=== PATIENT | female | born 1960 | race Caucasian/White ===

== ENCOUNTER 2017-04-07 12:21 | Inpatient (IN) ==
[2017-04-07] MEDS ORDERED: MORPHINE SULFATE 4mg INJECTION IVP ONE (12:34)
[2017-04-07] MEDS ORDERED: ONDANSETRON 4 MG/2 ML INJECTION IVP ONE (12:34)
--- OUTSIDE RECORDS SUMMARY | 2017-04-07 12:53 | External Medical Summary ---
:1960 Author Organization eClinicalWorks Care Team Providers Name Role Phone Krishna Jose Provider Role Unavailable Allergies No Known Allergies Problems Problem Type Condition Code Onset Dates Condition Status Problem Major depressive disorder, recurrent, F33.1 Active moderate Problem Panic disorder [episodic paroxysmal F41.0 Active anxiety] without agoraphobia Problem Attention-deficit hyperactivity F90.9 Active disorder, unspecified type Medications Medication Code System Code Instructions Start Date End Date Status Dosage Adderall XR [facility] 99393-213 30 MG Orally in November 05, October 31, 1 capsule 0-30 the morning and 2014 2016 at noon daily for ADHD Results No Known Results Summary Purpose eClinicalWorks Submission
--- OUTSIDE RECORDS SUMMARY | 2017-04-07 12:53 | External Medical Summary ---
:1960 Author Organization eClinicalWorks Care Team Providers Name Role Phone Radha Payne Provider Role Unavailable Allergies No Known Allergies Problems Problem Type Condition Code Onset Dates Condition Status Problem Daytime sleepiness R40.0 Active Problem Attention-deficit hyperactivity F90.9 Active disorder, unspecified type Problem Migraine without aura and without G43.009 Active status migrainosus, not intractable Problem Major depressive disorder, F33.1 Active recurrent, moderate Problem Panic disorder [episodic paroxysmal F41.0 Active anxiety] without agoraphobia Medications No Known Medications Results No Known Results Summary Purpose eClinicalWorks Submission
--- OUTSIDE RECORDS SUMMARY | 2017-04-07 12:53 | External Medical Summary ---
:1960 Author Organization e[employer]Works Care Team Providers Name Role Phone Val Reyes Provider Role Unavailable Allergies No Known Allergies Problems Problem Type Condition Code Onset Dates Condition Status Problem Major depressive disorder, F33.1 Active recurrent, moderate Problem Panic disorder [episodic paroxysmal F41.0 Active anxiety] without agoraphobia Problem Attention or concentration deficit 799.51 Active Medications No Known Medications Results No Known Results Summary Purpose eClinicalCompute Submission
--- OUTSIDE RECORDS SUMMARY | 2017-04-07 12:53 | External Medical Summary ---
:1960 Author Organization eClinicalWorks Care Team Providers Name Role Phone Marline Trevizo Provider Role Unavailable Allergies, Adverse Reactions, Alerts Substance Reaction Event Type Topamax "blood infections" sounds like down Drug Allergy Lortab N/V Drug Allergy tomatoes Info Not Available Non Drug Allergy seasonal allergies Info Not Available Non Drug Allergy potatoes Info Not Available Non Drug Allergy Problems Problem Type Condition Code Onset Dates Condition Status Problem Panic disorder without agoraphobia 300.01 Active Problem Attention or concentration deficit 799.51 Active Problem Major depressive disorder, recurrent 296.32 Active episode, moderate Assessment Panic disorder without agoraphobia 300.01 Active Assessment Major depressive disorder, recurrent 296.32 Active episode, moderate Assessment Attention deficit disorder of 314.01 Active childhood with hyperactivity Medications Medication Code Code Instructions Start End Date Status Dosage System Date Propranolol HCl [facility] 70433-08 20 MG Orally 1 tablet 73-00 Twice a day as needed Adderall XR [facility] 40924-40 30 MG Orally November 05, 2 capsules 50-30 Once a day 2014 in the morning Oxybutynin [facility] 56233-44 10 MG Orally not defined Chloride ER 07-[address] [facility] 63065-09 2 MG Orally 1 tablet 58-01 Daily for Three Weeks, 1 Week off Pristiq [facility] 92585-07 100 MG Orally 1 tablet 22-01 Once a day Procedures Procedure Coding System Code Date OFFICE VISIT, EST-MOD. COMPLEXITY (25 MIN) CPT-4 72289 November 05, 2014 Vital Signs Date/Time: November 05, 2014 Height 63 in Weight 209.8 lbs Temperature 98.5 F Blood Pressure Diastolic 68 mm Hg Blood Pressure Systolic 120 mm Hg Cardiac Monitoring Heart Rate 68 /min BMI 37.16 Index Respiratory Rate 20 /min Results No Known Results Summary Purpose eClinicalWorks Submission
--- OUTSIDE RECORDS SUMMARY | 2017-04-07 12:53 | External Medical Summary ---
:1960 Author Organization eClinicalWorks Care Team Providers Name Role Phone Marline Trevizo Provider Role Unavailable Allergies No Known Allergies Problems Problem Type Condition Code Onset Dates Condition Status Problem Major depressive disorder, F33.1 Active recurrent, moderate Problem Panic disorder [episodic paroxysmal F41.0 Active anxiety] without agoraphobia Problem Attention or concentration deficit 799.51 Active Medications Medication Code System Code Instructions Start Date End Date Status Dosage Adderall XR [facility] 44828-329 30 MG Orally in November 05, 1 capsule 0-30 the morning and 2014 at noon daily for ADHD Results No Known Results Summary Purpose eClinicalWorks Submission
--- OUTSIDE RECORDS SUMMARY | 2017-04-07 12:53 | External Medical Summary ---
[...] Medications Medication Code System Code Instructions Start End Date Status Dosage Date Trazodone HCl [facility] 35629-004 150 MG Orally at Mar 08, 1/2 to 09-01 bedtime 2014 tablet at bedtime Results No Known Results Summary Purpose eClinicalWorks Submission
--- OUTSIDE RECORDS SUMMARY | 2017-04-07 12:53 | External Medical Summary ---
:1960 Author Organization eClinicalWorks Care Team Providers Name Role Phone Maria Luisa Cox Provider Role Unavailable Allergies, Adverse Reactions, Alerts Substance Reaction Event Type Topamax "blood infections" sounds like down Drug Allergy Lortab N/V Drug Allergy dogs and cats Info Not Available Non Drug Allergy tomatoes Info Not Available Non Drug Allergy seasonal allergies Info Not Available Non Drug Allergy potatoes Info Not Available Non Drug Allergy Problems Problem Type Condition Code Onset Dates Condition Status Assessment Chest congestion R09.89 Active Problem Daytime sleepiness R40.0 Active Problem Attention-deficit hyperactivity F90.9 Active disorder, unspecified type Problem Migraine without aura and without G43.009 Active status migrainosus, not intractable Assessment Dysuria R30.0 Active Assessment Ear pain, right H92.01 Active Problem Major depressive disorder, F33.1 Active recurrent, moderate Problem Panic disorder [episodic paroxysmal F41.0 Active anxiety] without agoraphobia Medications Medication Code Code Instructions Start End Status Dosage System Date Date Ofloxacin [facility] [address]-64 0.3 % Otic Once May 20, May 25, 10 drops a day 2015 2015 into affected ear Vitamin C [facility] [address]-03 not defined Keflex [facility] [address]-05 500 MG Orally May 11, May 21, 1 capsule Twice a day 2015 2015 Trazodone HCl [facility] 35621965344 150 Orally take one-half to one tablet every night at bedtime as needed Vit E-Vit [facility] 36447-42436 not defined C-Beta Orally Carotene Rizatriptan [facility] [address]-25 5 MG Orally Oct 25, 1 tablet as Benzoate once a day at 2016 needed one start of time migraine, may repeat once in 2 hours Omeprazole [facility] [address]-35 20 MG Orally December 28, 1 capsule Once a day 2015 Propranolol [facility] [address]-08 40 MG Orally Oct 25, 1 tablet HCl Twice a day 2015 Pristiq [facility] [address]-98 100 MG Orally May 05, 1 tablet Once a day 2014 ProAir HFA [facility] [address]-92 108 (90 Base) May 20, 2 puffs as MCG/ACT 2015 needed Inhalation every 4 hrs Amoxicillin-Po [facility] [address]-77 875-125 MG May 20, May 27, 1 tablet t Clavulanate Orally Twice a 2015 2015 day Vitamin D-3 [facility] [address]-04 35512 Orally not defined daily Iron [facility] [address]-20 325 (65 Fe) MG December 28, 1 tablet Orally Once a 2015 day Procedures Procedure Coding System Code Date OFFICE VISIT, EST-LOW COMPLEXITY (15 MIN.) CPT-4 82343 May 20, 2016 Vital Signs Date/Time: May 20, 2016 Temperature 97.7 F Height 63 in Weight 203 lbs Blood Pressure Diastolic 70 mm Hg Blood Pressure Systolic 106 mm Hg Cardiac Monitoring Heart Rate 108 /min BMI 35.96 Index Oximetry 99 % Respiratory Rate 16 /min Results No Known Results Summary Purpose eClinicalWorks Submission
[2017-04-07] MEDS ORDERED: HYDROMORPHONE 2 MG/ML INJECTION IVP ONE (13:11)
[2017-04-07] MEDS ORDERED: SALINE FLUSH 10ml SYRINGE IVF PRN (13:12)
--- NOTE | 2017-04-07 13:45 | Emergency Department Report ---
Lower Extremity Injury HPI - General Chief Complaint: Extremity Injury, Lower <NovemberCruz - 04/09/17 07:32> Stated Complaint: right ankle pain <NovemberCruz - 04/09/17 07:32> Time Seen by Provider: 04/07/17 12:33 <NovemberCruz - 04/09/17 07:32> Source: patient <Camila Rascon Jose - 04/07/17 13:45> Mode of arrival: EMS <Yun Rasconporsha Garcia - 04/08/17 16:52> - History of Present Illness HPI Narrative: 57 YO F brought to ED via EMS at fall in the bathroom in her home. Patient says she was sitting on the toilet. When she went to get up she noticed that her right foot was a sleep. She stood up and twisted her ankle. Patient was given ketamine by EMS. Patient is tearful and difficult to obtain information due to pain. Denies LOC, neck/back pain or other injuries. <Camila Rascon - 04/08/17 17:17> MD complaint: ankle injury <Camila Rascon - 04/08/17 16:52> Onset (ago): hour(s) (1) <Camila Rascon - 04/08/17 16:52> Type of Injury: eversion <Camila Rascon - 04/08/17 16:52> Severity scale (1-10): >10 <Camila Rascon - 04/08/17 16:52> Associated symptoms: swelling, unable to bear weight <Camila Rascon - 04/08 16:52> - Related Data Home Medications Medication Instructions Recorded Confirmed Cholecalciferol (Vitamin D3) 10,000 unit PO DAILY #0 09/27/15 04/07/17 [Vitamin D3] Vitamin B Complex 1 tab PO DAILY #0 09/27/15 04/07/17 Propranolol HCl 40 mg PO BIDBL #0 07/30/16 04/07/17 Albuterol Sulfate [Proair Hfa] 1 puff INH Q4H PRN 04/02/17 04/07/17 Amphetamine/Dextroamphetamine 10 mg PO NOON 04/02/17 04/07/17 [Adderall] BuPROPion XL [Wellbutrin Xl] 150 mg PO DAILY 04/02/17 04/07/17 Cetirizine [Zyrtec] 10 mg PO DAILY 04/02/17 04/07/17 Dextroamphetamine/Amphetamine 30 mg PO QAM 04/02/17 04/07/17 [Dextroamp-Amphet ER 30 mg Cap] Ferrous Sulfate [Iron] 325 mg PO DAILY 04/02/17 04/07/17 Fluticasone Nasal [place] [Flonase] 1 spray EA NOSTRIL DAILY PRN 04/02/17 04/07/17 Ibuprofen [Advil] 200 mg PO Q4H PRN 04/02/17 04/07/17 Multivitamin/Iron/Folic Acid 1 tab PO DAILY 04/02/17 04/07/17 [Centrum Women Tablet] OXcarbazepine [Trileptal] 150 mg PO BIDBL 04/02/17 04/07/17 Rizatriptan [Maxalt 5 mg] 5 mg PO DAILY PRN 04/02/17 04/07/17 Sertraline [Zoloft] 200 mg PO DAILY 04/02/17 04/07/17 Trazodone [Desyrel] 200 mg PO HS 04/02/17 04/07/17 Vitamin E 1 tab PO DAILY 04/02/17 04/07/17 Previous Rx's Medication Instructions Recorded Acetaminophen [Tylenol] 500 - 1,000 mg PO Q8H PRN #100 tab 04/08/17 Aspirin *EC* [Ecotrin] 81 mg PO BID #84 tab 04/08/17 Tramadol [Ultram] 50 - 100 mg PO Q6H PRN #60 tab 04/08/17 <NovemberCruz - 04/09/17 07:32> Allergies Allergy/AdvReac Type Severity Reaction Status Date / Time codeine Allergy Unknown Verified 04/07/17 12:24 hydrocodone Allergy Unknown Nausea Verified 04/07/17 13:29 Potatoes Allergy Unknown Verified 04/07/17 13:29 tomato Allergy Unknown Verified 04/07/17 12:24 topiramate Allergy Unknown Verified 04/07/17 12:24 <NovemberCruz - 04/09/17 07:32> Review of Systems All systems: reviewed and negative except as stated <Camila Rascon A - 16:52> Musculoskeletal: Reports: as per HPI, joint swelling (and pain) <Camila Rascon 04/08/17 16:52> PFSH Patient Stated Medical History Other HEENT Yes: wears glasses Coronary Artery Disease No Hypertension No Asthma No Sleep Apnea No Diabetes Mellitus Type 2 No Gastroesophageal Reflux No Disease Other Musculoskeletal Yes: anxiety Anesthesia Reactions Yes: does not want Ketamine due to previous bad experience Post Menopausal Yes <Cruz Weiner M - 04/09/17 07:32> Family History: Non contributory <Camila Rascon 04/08/17 16:52> - Social History Smoking status: Former smoker <Camila Rascon 04/07/17 13:45> Physical Exam - Limitations Limitations: no limitations <Camila Rascon 04/08/17 16:52> - General General appearance: alert, in distress <Camila Rascon 04/08/17 16:52> - Normal Exams: Head:: Normocephalic without trauma <Camila Rascon 04/08/17 16:52> Eyes:: No scleral icterus, irritation <Camila Rascon 04/08/17 16:52> ENMT:: No facial trauma, nasal exudates <Camila Rascon 04/08/17 16:52> Dental: loose <Camila Rascon 04/08/17 17:17> Chest/Respirations:: Clear all wagner, with good airflow, and symmetry bilaterally <Camila Rascon 04/08/17 16:52> Cardiovascular:: Regular rate and rhythm <Camila Rascon 04/08/17 17:17> Neurological:: Patient is alert, exams w/o gross deficits, to observation < Camila Rascon 04/08/17 16:52> - Neck Neck exam: Present: trachea midline <Camila Rascon 04/08/17 16:52> - Expanded Neck Exam Neck exam focused ED: Absent: midline tenderness, tenderness (other) <Camila Rascon 04/08/17 17:17> - Expanded Lower Extremity Exam Knee exam: Present: normal inspection (right) <Camila Rascon 04/08/17 17: 17> Ankle exam: Present: swelling (right), ecchymosis (right), deformity (right), dislocation (right) <Camila Rascon 04/08/17 17:17> Neurovascular/Tendon exam: Present: normal capillary refill (right toes), normal fine/light touch. Absent: pulse deficit, sensory deficit, extremity cold to touch <Camila Rascon Joes 04/08/17 17:17> Course Course Narrative: Pt histrionic and uncooperative with any attempts at pain control or evaluation. Suboptimal plain films finally obtained at 90min; Ortho contacted - will reduce with conscious sedation in ER. Discussed with pt, who initially refused to make a decision. After making pts 3 options crystal clear, pt decided to have ankle reduced and splinted in ER. < 04/07/17 14:16> - Consultations Consultation #1: Dr. Rey: Will come to ER for reduction under conscious sedation. <eb 04/07/17 14:16> Time: 14:14 <[facility] 04/07/17 14:16> Vital Signs Temperature 98.8 F 04/07/17 12:24 Pulse Rate 90 04/07/17 12:24 Respiratory Rate 19 04/07/17 12:24 Blood Pressure 143/88 H 04/07/17 12:24 Pulse Oximetry 95 04/07/17 12:24 Temperature 96.8 F 04/09/17 05:12 Pulse Rate 68 04/09/17 05:12 Respiratory Rate 16 04/09/17 05:12 Blood Pressure 125/69 04/09/17 05:12 Pulse Oximetry 98 04/09/17 05:12 <eb 04/09/17 07:32> Procedures - Orthopedic Joint Reduction Joint #1 Time Out Performed: Yes <04/07/17 14:50> Side: right <04/07/17 14:50> Joint Reduction Location: ankle <04/07/17 14:50> Analgesia: procedural sedation <04/07/17 14:50> Technique used: direct manipulation <eb 04/07/17 14:50> Post-reduction neuro exam: intact <eb 04/07/17 14:50> Post-reduction vascular: intact <04/07/17 14:50> Post Reduction X-Ray Obtained: Yes <November,[facility] 04/07/17 14:50> Post Reduction X-Ray Results: reduced <November,[facility] 04/07/17 14:50> Splint Applied: Yes <November,[facility] 04/07/17 14:50> Patient Tolerated Procedure: well <November,[facility] 04/07/17 14:50> Additional Comments: Reduction performed by Orthopedist. <November,[facility] 04/07/17 14:50> - Procedural Sedation Indication: fracture/dislocation reduction <November,[facility] 04/07/17 14:16> ASA Class: III <[facility] 04/07/17 14:16> Time of Last PO Intake: 00:00 <November,[facility] 04/07/17 14:16> Preparation: president and chief operating officer applied, pulse oximeter, capnometry used, supplemental O2 applied, reversal agents at bedside, suction/airway equipment at bedside, IV secured <November,[facility] 04/07/17 14:16> Fentanyl: IV <November,[facility] 04/07/17 14:16> Fentanyl dose (mcg): 99 <November,[facility] 04/07/17 14:16> IV Propofol dose (mg): 100 <November,[facility] 04/07/17 14:16> Patient Tolerated Procedure: well <November,[facility] 04/07/17 14:50> Complications: hypoventilation <November,[facility] 04/07/17 14:50> Interventions: oxygen applied, airway repositioned, assist by BVM, non-invasive ventilation <November,[facility] 04/07/17 14:50> Extremity Injury, Lower - MDM Narrative Medical decision making narrative: Patient initially given morphine IV due to report codeine allergy. Patient anxious and tearful. Refusing x-ray of right ankle Patient given 1mg of Ativan. Patient was them given 1mg of Dilaudid after it was established she did not have a type 1 codeine allergy. Patient argumentative and unsure if she wanted Dilaudid initially. Patient care turned over to Dr. Weiner. <Camila Rascon - 04/08/17 17:17> Pt with ankle dislocation and fibular fx. Pt sedated and reduced as documented. Pt tolerated procedure well. Orthopedic surgeon will admit for obs and possible surgery tomorrow. <November,[facility] - 04/07/17 15:11> - Differential Diagnosis Likely: ankle sprain and strain, ankle fracture (Ankle dislocation) <November, [facility] - 04/07/17 15:11> - Medical Records Attestation: I reviewed the patient's medical records. <November,[facility] - 15:11> - Lab Data Result diagrams: 04/08/17 04:41 04/08/17 04:41 <November,[facility] - 04/09/17 07:32> Lab Results 04/08/17 04/08/17 Range/Units 04:41 04:41 WBC 10.3 (4.5-11.0) T/MM3 RBC 4.42 (4.00-5.20) M/MM3 Hgb 12.5 (12-16) GM/DL Hct 38.7 (36-46) % MCV 87.6 (80-100) UM3 MCH 28.3 (26-34) UUG MCHC 32.3 (31-37) GM/DL RDW Std Deviation 40.7 (36.9-50.2) FL Plt Count 290 (130-400) T/MM3 MPV 9.0 L (9.4-12.4) UM3 Immature Gran % (Auto) 0.3 (0.0-0.5) % Neut % (Auto) 59.6 (33-66) % Lymph % (Auto) 25.7 (23-45) % [place] % (Auto) 11.3 H (0-9.0) % Eos % (Auto) 2.9 (0-4) % Baso % (Auto) 0.2 (0-2) % Neut # (Auto) 6.1 (1.8-7.7) T/MM3 Lymph # (Auto) 2.6 (1-4.8) T/MM3 [place] # (Auto) 1.2 H (0-0.8) T/MM3 Eos # (Auto) 0.3 (0-0.5) T/MM3 Baso # (Auto) 0.0 (0-0.2) T/MM3 Abs Immat Gran (auto) 0.03 (0.00-0.03) T/MM3 Turbidity < 20 (0-20) Sodium 145 H (134-144) MEQ/L Potassium 4.0 (3.6-5) MEQ/L Chloride 109 H (98-107) MEQ/L Carbon Dioxide 24 (22-30) MEQ/L Anion Gap 12 (5-15) MEQ/L BUN 21.0 H (7-17) MG/DL Creatinine 0.7 (0.7-1.2) MG/DL GFR Calculation 87 BUN/Creatinine Ratio 30 H (6-26) RATIO Glucose 97 (65-110) MG/DL Calculated Osmolality 282 H (261-280) MOSM/KG Calcium 8.8 (8.4-10.2) MG/DL Icterus Index < 2 (0-7) Specimen Hemolysis < 15.0 (0-25) <Camila Rascon - 04/08/17 16:53> Lab Results 04/08/17 04/08/17 Range/Units 04:41 04:41 WBC 10.3 (4.5-11.0) T/MM3 RBC 4.42 (4.00-5.20) M/MM3 Hgb 12.5 (12-16) GM/DL Hct 38.7 (36-46) % MCV 87.6 (80-100) UM3 MCH 28.3 (26-34) UUG MCHC 32.3 (31-37) GM/DL RDW Std Deviation 40.7 (36.9-50.2) FL Plt Count 290 (130-400) T/MM3 MPV 9.0 L (9.4-12.4) UM3 Immature Gran % (Auto) 0.3 (0.0-0.5) % Neut % (Auto) 59.6 (33-66) % Lymph % (Auto) 25.7 (23-45) % [place] % (Auto) 11.3 H (0-9.0) % Eos % (Auto) 2.9 (0-4) % Baso % (Auto) 0.2 (0-2) % Neut # (Auto) 6.1 (1.8-7.7) T/MM3 Lymph # (Auto) 2.6 (1-4.8) T/MM3 [place] # (Auto) 1.2 H (0-0.8) T/MM3 Eos # (Auto) 0.3 (0-0.5) T/MM3 Baso # (Auto) 0.0 (0-0.2) T/MM3 Abs Immat Gran (auto) 0.03 (0.00-0.03) T/MM3 Turbidity < 20 (0-20) Sodium 145 H (134-144) MEQ/L Potassium 4.0 (3.6-5) MEQ/L Chloride 109 H (98-107) MEQ/L Carbon Dioxide 24 (22-30) MEQ/L Anion Gap 12 (5-15) MEQ/L BUN 21.0 H (7-17) MG/DL Creatinine 0.7 (0.7-1.2) MG/DL GFR Calculation 87 BUN/Creatinine Ratio 30 H (6-26) RATIO Glucose 97 (65-110) MG/DL Calculated Osmolality 282 H (261-280) MOSM/KG Calcium 8.8 (8.4-10.2) MG/DL Icterus Index < 2 (0-7) Specimen Hemolysis < 15.0 (0-25) <November,[facility] 04/07/17 14:16> - Radiology Data Attestation: I reviewed the patient's radiology results. <November,[facility] 14:51> Right ankle: Impression: Fracture dislocation of the distal tibia with a fibular fracture as well. Recommend repeat views after reduction for further evaluation. Post-reduction: Post-reduction films showing good alignment of tibia and talus and improved alignment of fibula. <November,[facility] 04/07/17 14:51> Disposition Clinical Impression: Fibula fracture Qualifiers: Encounter type: initial encounter Fibula location: distal Fracture type: closed Fracture morphology: unspecified fracture morphology Laterality: right Qualified Code(s): S82.831A - Other fracture of upper and lower end of right fibula, initial encounter for closed fracture Ankle dislocation Qualifiers: Encounter type: initial encounter Laterality: right Qualified Code(s): S93.04XA - Dislocation of right ankle joint, initial encounter <November,[facility] 04/07/17 15:11> Disposition: 02 To OBS [facility] <November,[facility] 04/07/17 15:11> Condition: Improved <November,[facility] 04/09/17 07:32> Instructions: <November,[facility] - 04/09/17 07:32> Prescriptions: New Aspirin *EC* [Ecotrin] 81 mg PO BID #84 tab Acetaminophen [Tylenol] 500 - 1,000 mg PO Q8H PRN #100 tab PRN Reason: Pain Tramadol [Ultram] 50 - 100 mg PO Q6H PRN #60 tab PRN Reason: Pain Continue Vitamin B Complex 1 tab PO DAILY #0 Cholecalciferol (Vitamin D3) [Vitamin D3] 10,000 unit PO DAILY #0 Multivitamin/Iron/Folic Acid [Centrum Women Tablet] 1 tab PO DAILY Fluticasone Nasal [place] [Flonase] 1 spray EA NOSTRIL DAILY PRN PRN Reason: Prn Orders Ferrous Sulfate [Iron] 325 mg PO DAILY BuPROPion XL [Wellbutrin Xl] 150 mg PO DAILY Cetirizine [Zyrtec] 10 mg PO DAILY Rizatriptan [Maxalt 5 mg] 5 mg PO DAILY PRN PRN Reason: Migraine Headache OXcarbazepine [Trileptal] 150 mg PO BIDBL Dextroamphetamine/Amphetamine [Dextroamp-Amphet ER 30 mg Cap] 30 mg PO QAM Sertraline [Zoloft] 200 mg PO DAILY Vitamin E 1 tab PO DAILY Propranolol HCl 40 mg PO BIDBL #0 Ibuprofen [Advil] 200 mg PO Q4H PRN PRN Reason: Pain Albuterol Sulfate [Proair Hfa] 1 puff INH Q4H PRN PRN Reason: Prn Orders Amphetamine/Dextroamphetamine [Adderall] 10 mg PO NOON Trazodone [Desyrel] 200 mg PO HS <November,[facility] 04/09/17 07:32> Referrals: Radha Payne APRN [Family Provider] - <November,[facility] - 07:32> Forms: <November,[facility] 04/09/17 07:32> Time of Disposition: 15:11 <November,[facility] - 04/07/17 15:11> - Seen By: midlevel and physician <NovemberCruz - 04/09/17 07:32> midlevel and physician <Camila Rascon - 04/08/17 17:17>
--- NOTE | 2017-04-07 13:53 | XRay Report ---
Indication: pain, swelling medial right ankle PROCEDURE: XR ankle RT 2V: Encounter: Initial Comparison: None Findings: There is a fracture dislocation of the distal tibia with posterior dislocation of the talus relative to the tibia. Mildly displaced and angulated distal fibular fracture is also noted. The foot is rotated approximately 90 degrees lateral relative to the tibia and fibula. There is overlying material on the AP view causing some artifact. Impression: Fracture dislocation of the distal tibia with a fibular fracture as well. Recommend repeat views after reduction for further evaluation. .
[2017-04-07] MEDS ORDERED: PROPOFOL 200 MG/20 ML INJECTION IVP ONE (14:03)
[2017-04-07] MEDS ORDERED: NS 1,000 ML IV ONE (14:07)
[2017-04-07] MEDS ORDERED: FentaNYL 100 MCG/2 ML INJECTION IVP ONE (14:13)
--- NOTE | 2017-04-07 14:56 | XRay Report ---
Indication: Trauma PROCEDURE: XR ankle RT min 3V: Encounter: Initial Comparison: April 07, 2017 at 1346 Findings: Interval closed reduction of the fracture dislocation of the ankle joint. There is overlying splinting material causing artifact. Irregularity of the posterior malleolus on the lateral view suspicious for fracture in the tibia. There is less angulation within the distal fibular fracture which is now only very minimally displaced and slightly distracted. No additional areas concerning for fracture. No current dislocation. Impression: Interval closed reduction of the ankle fracture dislocation with improved alignment. .
[2017-04-07] MEDS ORDERED: HYDROCODONE/APAP 7.5 MG/325 MG TABLET PO PRN (16:11)
--- NOTE | 2017-04-07 16:24 | CT Scan Report ---
Indication: Ankle fx/dislocation PROCEDURE: CT ankle RT wo con: Encounter: Initial Comparison: Ankle radiographs from today Technique: Axial noncontrast CT imaging through the right ankle is performed with coronal and sagittal reformats. Three-dimensional surface shaded volume rendered imaging was also created and reviewed. Automated Exposure Control and Iterative Reconstruction dose reducing techniques were utilized. Findings: Mildly displaced and comminuted fracture of the posterior aspect of the distal tibia is seen as noted on the prior studies. This causes irregularity of the posterior articular surface with a 2 to 3 mm area of step-off involving the posterior 8 mm. There is also a loose body seen in the medial joint recess on coronal image #30 measuring 7 x 1 mm areas in size. Fracture line exits through the base of the medial malleolus. Oblique comminuted mildly displaced distal fibular fracture is redemonstrated. No additional acute fracture. No dislocation currently. There is expected soft tissue swelling around the ankle joint. The tibiofibular syndesmosis is not obviously disrupted. Muscular attenuation is within normal limits. There is slight internal rotation of the talus relative to the tibia in otherwise relatively symmetric ankle mortise. Impression: Distal tibial and fibular fractures as described above. Although the tibiofibular syndesmosis is not obviously widened the fracture pattern for example on axial image #55 shows that the path of force transmission would be through the distal and posterior aspect of the syndesmosis. Orthopedic surgical evaluation and correlation for stability is recommended. .
[2017-04-07 16:26] VITALS: BMI 38.0
[2017-04-07] MEDS: NS 1,000 ML IV SCH (16:37)
--- NOTE | 2017-04-07 16:48 | Procedure Note ---
DATE OF PROCEDURE 04/07/2017 PREPROCEDURE DIAGNOSIS Right ankle fracture dislocation. POSTPROCEDURE DIAGNOSIS Right ankle fracture dislocation. PROCEDURE Closed reduction of right ankle fracture dislocation. SURGEON Kehinde Rey MD ANESTHESIA Conscious sedation COMPLICATIONS None DESCRIPTION OF PROCEDURE Mrs. Lomeli and her right ankle were identified. Time-out was performed. Propofol was then provided by the ER physician. Once adequate sedation was acquired, I performed a reduction to her right ankle using direct manipulation. An diagnostic assistant was flexing the knee at 90 degrees. The ankle reduced easily. I placed her in a posterior slab in a stirrup-type splint. It was well-padded and well molded. She was then allowed to awake from the anesthesia. She tolerated the procedure well. There were no complications. Postreduction x- rays showed excellent reduction of her ankle fracture. EZ
[2017-04-07] MEDS ORDERED: TRAMADOL 50 MG TABLET PO PRN (16:49)
[2017-04-07] MEDS ORDERED: DiphenhydrAMINE 50 MG/ML INJECTION IVP PRN (16:51)
[2017-04-07] MEDS ORDERED: ONDANSETRON 4 MG/2 ML INJECTION IVP PRN (16:51)
[2017-04-07] MEDS ORDERED: ACETAMINOPHEN 500 MG TABLET PO PRN (17:31)
[2017-04-07] MEDS: KETOROLAC 30 MG/ML INJECTION IVP PRN (19:36)
--- NOTE | 2017-04-07 19:39 | Orthopedic History & Physical ---
Orthopedic HPI - HPI Comments 57 yo female who fell today and suffered a fx-dislocation of her right ankle. She was brought to [facility] ER where xrays showed a fx-dislocation of the ankle. After considerable discussion with the pt and ER staff, she agreed to be seen by our service. Pt does not report numbness in the foot. She moves her toes and lifts her leg. She denies injury to other joints or extremities. [facility] Patient Stated Medical History Other HEENT Yes: wears glasses Post Menopausal Yes - Social History Smoking status: Former smoker Review of Systems ROS unobtainable: other (sedation prior to my arrivial. ) - Constitutional Constitutional: Absent: chills, fever(s) - EENT Ears, nose, mouth, throat: Absent: headaches, head injury - Cardiovascular Cardiovascular: Absent: chest pain - Respiratory Respiratory: Absent: cough, dyspnea - Gastrointestinal Gastrointestinal: Absent: abdominal pain - Musculoskeletal Musculoskeletal: Present: as per HPI - Integumentary/Breasts Integumentary: Absent: lesions, wounds - Neurological Neurological: Absent: numbness, paresthesias, tingling Medications Home Medications Medication Instructions Recorded Confirmed Type Cholecalciferol (Vitamin D3) 10,000 unit PO DAILY #0 09/27/15 04/07/17 History [Vitamin D3] Vitamin B Complex 1 tab PO DAILY #0 09/27/15 04/07/17 History Propranolol HCl 40 mg PO BIDBL #0 07/30/16 04/07/17 History Albuterol Sulfate [Proair Hfa] 1 puff INH Q4H PRN 04/02/17 04/07/17 History Amphetamine/Dextroamphetamine 10 mg PO NOON 04/02/17 04/07/17 History [Adderall] BuPROPion XL [Wellbutrin Xl] 150 mg PO DAILY 04/02/17 04/07/17 History Cetirizine [Zyrtec] 10 mg PO DAILY 04/02/17 04/07/17 History Dextroamphetamine/Amphetamine 30 mg PO QAM 04/02/17 04/07/17 History [Dextroamp-Amphet ER 30 mg Cap] Ferrous Sulfate [Iron] 325 mg PO DAILY 04/02/17 04/07/17 History Fluticasone Nasal [place] [Flonase] 1 spray EA NOSTRIL DAILY PRN 04/02/17 History Ibuprofen [Advil] 200 mg PO Q4H PRN 04/02/17 04/07/17 History Multivitamin/Iron/Folic Acid 1 tab PO DAILY 04/02/17 04/07/17 History [Centrum Women Tablet] OXcarbazepine [Trileptal] 150 mg PO BIDBL 04/02/17 04/07/17 History Rizatriptan [Maxalt 5 mg] 5 mg PO DAILY PRN 04/02/17 04/07/17 History Sertraline [Zoloft] 200 mg PO DAILY 04/02/17 04/07/17 History Trazodone [Desyrel] 200 mg PO HS 04/02/17 04/07/17 History Vitamin E 1 tab PO DAILY 04/02/17 04/07/17 History Allergies Allergy/AdvReac Type Severity Reaction Status Date / Time codeine Allergy Unknown Verified 04/07/17 12:24 hydrocodone Allergy Unknown Nausea Verified 04/07/17 13:29 Potatoes Allergy Unknown Verified 04/07/17 13:29 tomato Allergy Unknown Verified 04/07/17 12:24 topiramate Allergy Unknown Verified 04/07/17 12:24 oxycodone AdvReac Unknown Itching Verified 04/07/17 14:19 Orthopedic Exam Vital signs: Temperature 96.8 F 04/07/17 16:11 Pulse Rate 81 04/07/17 19:02 Respiratory Rate 20 04/07/17 16:11 Blood Pressure 134/82 04/07/17 16:11 Pulse Oximetry 96 04/07/17 16:11 - Constitutional General Appearance: Present: alert, mild distress, well developed, other (She is not completely cooperative and argues with staff on most issues.) - Respiratory Exam Present: non-labored - Cardiovascular Exam Present: pedal pulses intact Capillary Refill: < 2-3 Seconds - Abdominal Exam Present: soft. Absent: tenderness, distended - Extremities Exam Present: pulses intact, normal capillary refill Comments: Swelling and ankle deformity noted. - Integumentary Exam Present: pink, warm, intact, bruising - Neurological Exam Present: intact to light touch, no deficits - Psychiatric Exam Present: alert Orthopedic Assessment and Plan (1) Ankle dislocation Status: Acute Qualifiers: Encounter type: initial encounter Laterality: right Qualified Code(s): S93.04XA - Dislocation of right ankle joint, initial encounter Assessment and Plan: Distal fibula and tibia fractures with ankle dislocation (right). Closed reduction performed in ER under sedation. Pt currently in a splint. ICE / Elevate and remain non-wt bearing. Pt will require surgical fixation of this injury. Will check her swelling in the AM and consider ORIF on 04/08/17 if swelling allows. Admit as observation out patient for now. - Anticoagulation Therapy Anticoagulation: ASA 325 mg PO BID x6 weeks Hospital Course Summary Disclaimer: The visit summary below is not to be considered part of the above Progress Note.
[2017-04-07] MEDS: HYDROMORPHONE 2 MG/ML INJECTION IVP PRN (21:36)
[2017-04-08] MEDS: HYDROMORPHONE 2 MG/ML INJECTION IVP PRN ×3 (00:16→22:51)
[2017-04-08] MEDS: KETOROLAC 30 MG/ML INJECTION IVP PRN (05:23)
[2017-04-08] MEDS: NS 1,000 ML IV SCH ×3 (05:27→22:52)
[2017-04-08] MEDS ORDERED: LR 1,000 ML IV SCH (08:15)
[2017-04-08] MEDS ORDERED: MIDAZOLAM 2mg/2ml INJECTION IVP ONE (08:25)
[2017-04-08] MEDS ORDERED: LIDOCAINE 1% (10mg/ml) 30ml SDV INJ ONE ×2 (08:30→09:40)
[2017-04-08] MEDS ORDERED: ROPIVACAINE 0.5% (5mg/ml) 30ml INJ ONE (08:30)
--- NOTE | 2017-04-08 09:09 | Anesthesia Preoperative Report ---
Anesthesia Preoperative Record - Date and Time Date: 04/08/17 Preoperative Diagnosis: Fx dislocation right ankle Proposed Procedure: right ankle ORIF NPO Since Date: 04/07/17 NPO Since Time: 23:00 Allergies/Adverse Reactions: Allergies Allergy/AdvReac Type Severity Reaction Status Date / Time codeine Allergy Unknown Verified 04/07/17 12:24 hydrocodone Allergy Unknown Nausea Verified 04/07/17 13:29 Potatoes Allergy Unknown Verified 04/07/17 13:29 tomato Allergy Unknown Verified 04/07/17 12:24 topiramate Allergy Unknown Verified 04/07/17 12:24 oxycodone AdvReac Unknown Itching Verified 04/07/17 14:19 - Vital Signs Vital Signs: Temperature 96.5 F L 04/08/17 08:01 Pulse Rate 80 04/08/17 08:55 Respiratory Rate 18 04/08/17 08:55 Blood Pressure 116/59 04/08/17 08:55 Pulse Oximetry 100 04/08/17 08:55 Height and Weight: Height 5 ft 5 in Weight 103.5 kg Body Mass Index 38.0 - Medications Inpatient Medications: Current Medications Acetaminophen (Tylenol) 500 - 1,000 mg PO Q8H PRN PRN Reason: Pain Cefazolin Sodium (Kefzol) 2 g IVP PREOP ONE Stop: 04/08/17 10:01 Diphenhydramine HCl (Benadryl) 25 mg IVP Q6HR PRN PRN Reason: Itching Hydromorphone HCl (Dilaudid) 0.5 - 1 mg IVP Q1H PRN PRN Reason: Pain Last Admin: 04/08/17 01:49 Dose: 1 mg Sodium Chloride (Normal Saline) 1,000 mls @ 75 mls/hr IV .[id number] LINDA Last Admin: 04/08/17 05:27 Dose: 75 mls/hr Lactated Ringer's (Lactated Ringers) 1,000 mls @ 50 mls/hr IV .Q20H LINDA Last Admin: 04/08/17 08:08 Dose: 50 mls/hr Ketorolac Tromethamine (Toradol Inj) 30 mg IVP Q6H PRN PRN Reason: Pain Stop: 04/12/17 16:50 Last Admin: 04/08/17 05:23 Dose: 30 mg Lorazepam (Ativan Inj) 0.5 - 1 mg IVP Q6H PRN Last Admin: 04/08/17 01:52 Dose: 0.5 mg Ondansetron HCl (Zofran) 4 mg IVP Q6H PRN PRN Reason: Nausea &/or vomiting Tramadol HCl (Ultram) 50 - 100 mg PO Q6H PRN Home Medications: Home Medications Medication Instructions Recorded Confirmed Type Cholecalciferol (Vitamin D3) 10,000 unit PO DAILY #0 09/27/15 04/07/17 History [Vitamin D3] Vitamin B Complex 1 tab PO DAILY #0 09/27/15 04/07/17 History Propranolol HCl 40 mg PO BIDBL #0 07/30/16 04/07/17 History Albuterol Sulfate [Proair Hfa] 1 puff INH Q4H PRN 04/02/17 04/07/17 History Amphetamine/Dextroamphetamine 10 mg PO NOON 04/02/17 04/07/17 History [Adderall] BuPROPion XL [Wellbutrin Xl] 150 mg PO DAILY 04/02/17 04/07/17 History Cetirizine [Zyrtec] 10 mg PO DAILY 04/02/17 04/07/17 History Dextroamphetamine/Amphetamine 30 mg PO QAM 04/02/17 04/07/17 History [Dextroamp-Amphet ER 30 mg Cap] Ferrous Sulfate [Iron] 325 mg PO DAILY 04/02/17 04/07/17 History Fluticasone Nasal [place] [Flonase] 1 spray EA NOSTRIL DAILY PRN 04/02/17 History Ibuprofen [Advil] 200 mg PO Q4H PRN 04/02/17 04/07/17 History Multivitamin/Iron/Folic Acid 1 tab PO DAILY 04/02/17 04/07/17 History [Centrum Women Tablet] OXcarbazepine [Trileptal] 150 mg PO BIDBL 04/02/17 04/07/17 History Rizatriptan [Maxalt 5 mg] 5 mg PO DAILY PRN 04/02/17 04/07/17 History Sertraline [Zoloft] 200 mg PO DAILY 04/02/17 04/07/17 History Trazodone [Desyrel] 200 mg PO HS 04/02/17 04/07/17 History Vitamin E 1 tab PO DAILY 04/02/17 04/07/17 History Is Patient on Beta Anastasiia?: No - Medical History Respiratory: DENIES: Asthma, Sleep Apnea Cardiovascular: DENIES: Coronary Artery Disease, Hypertension Gastrointestional: DENIES: Gastroesophageal Reflux Disease Neuro/Musculoskeletal: Reports: Headaches, Other (anxiety) Renal/Endocrine: DENIES: Diabetes Mellitus Type 2 Other History: Reports: Anesthesia Reactions (does not want Ketamine due to previous bad experience) - Surgical History GI Surgery/Treatments: Reports: Cholecystectomy, Colonoscopy Reproductive Surgery/Treatment: Reports: Hysterectomy (PARTIAL) Anesthesia Reactions: None Hx Family Anesthesia Reaction: No - Social History Smoking Status: Former smoker Substance Use Type: other (hx of alcoholism, sober for many years. No smoking, nicotine gum only) - Pertinent Findings Laboratory: CBC and BMP 04/08/17 04:41 04/08/17 04:41 BMP 04/08/17 04:41 Sodium 145 H Potassium 4.0 Chloride 109 H Carbon Dioxide 24 BUN 21.0 H Creatinine 0.7 Glucose 97 Calcium 8.8 EKG: Sinus Dysrhythmia - Physical Exam Respiratory Exam: Present: lungs clear, bilateral breath sounds equal Cardiovascular Exam: Present: regular rate and rhythm - Airway Assessment Mallampati Score: II TMD: 3 Fingerbreadths Neck Extension: good Overall Assessment: may be difficult mask vent - ASA ASA Score: 2 - Plan Anesthesia: General TIVA, Regional Block Peripheral Nerve Block: Popliteal-Right, Saphenous-Right - Discussion Discussion: Discussed risks/options/alternatives of anesthesia and questions answered. Patient consents. Nursing pain assessment noted. Attestation Statement: Prior to the delivery of any anesthetic medication, I examined the patient, developed the plan, obtained the patient's consent and discussed the risk and benefits of the procedure with the patient/guardian. - Additional Information Seen by Anesthesia: Yes
--- NOTE | 2017-04-08 09:14 | Anesthesia Procedure Note ---
Peripheral Nerve Blockade - Procedure Physician: Kehinde Rey MD Date: 04/08/17 Surgical Procedure: right ankle ORIF Discussion: Discussed risks/options/alternatives of anesthesia and questions answered. Patient consents. Nursing pain assessment noted. Block Start: 08:44 Block Stop: 08:56 Blocked Employed: Popliteal, Other (saphenous, right) Indication: Post-Operative Pain Approach: Right Side Confirmed Position: Supine Patient: Consent, Risks/Benefits Discussed, Informed, Post Block Act. Discussed IV Sedation: Yes Initial Vital Signs: Temperature 98.8 F 04/07/17 12:24 Temperature Source Oral 04/07/17 12:24 Sepsis Recent Fever Within 48 Hours No 04/07/17 12:24 Sepsis Suspicion of Infection No 04/07/17 12:24 Sepsis Score/Level No Definite Risk 04/07/17 12:24 Sepsis Action Taken by Nursing No Action 04/07/17 12:24 Pulse Rate 90 04/07/17 12:24 Pulse Rhythm 04/07/17 12:24 Respiratory Rate 19 04/07/17 12:24 Respiratory Effort Non-Labored 04/07/17 12:24 Respiratory Depth Normal 04/07/17 12:24 Respiratory Pattern 04/07/17 12:24 Blood Pressure 143/88 H 04/07/17 12:24 Blood Pressure Mean 106 04/07/17 12:24 Blood Pressure Position Supine 04/07/17 12:24 Pulse Oximetry 95 04/07/17 12:24 Oxygen Delivery Method 04/07/17 12:24 Post Vital Signs: Temperature 96.5 F L 04/08/17 08:01 Pulse Rate 74 04/08/17 09:05 Respiratory Rate 13 04/08/17 09:05 Blood Pressure 111/54 04/08/17 09:05 Pulse Oximetry 98 04/08/17 09:05 Initial Pain Pain Score: 8 Post Block Pain Score: 2 Prep: Chlorhexadine/ETOH Ultrasound Used?: Yes - Injectate Ropivacaine (%): 0.5 (15ml for pop, 5 for saph) Ropivacaine (mL): 20 Lidocaine (%): 1 Lidocaine (mL): 20 (15ml for pop, 5 for saph) Injection: Injection made incrementally with constant monitoring and aspiration every 5ml
[2017-04-08] MEDS ORDERED: ACETAMINOPHEN IV 1,000 MG/100 ML VIAL IV ONE (09:17)
[2017-04-08] MEDS ORDERED: PROPOFOL 500 MG/50 ML VIAL IV ONE ×2 (09:22→10:00)
[2017-04-08] MEDS ORDERED: MIDAZOLAM 2mg/2ml INJECTION ONE (09:33)
[2017-04-08] MEDS ORDERED: BUPIVACAINE 0.25% (2.5mg/ml) PF 30ml INJECTION ONE (09:40)
[2017-04-08] MEDS: BUPIV 0.25% 30ml/LIDO 1% 30ml MIXTURE ID ONE ×4 (09:48→10:51)
[2017-04-08] MEDS ORDERED: CEFAZOLIN 1 G INJECTION IVP ONE (10:00)
--- NOTE | 2017-04-08 10:37 | Remote Fluorsocopy Report ---
Indication: ORIF R ANKLE PROCEDURE: RF ankle RT 3 view: Encounter: Initial Comparison: Ankle radiographs and CT from yesterday Findings: Seven fluoroscopic spot images are submitted for interpretation. Images show open reduction and fixation of the distal fibular fracture with placement of a lateral side plate and multiple screws. Improved alignment of the fracture fragments. Impression: Fluoroscopy as above. Fluoroscopy time is 58.9 seconds. Fluoroscopy dose is 150.5 mRad. .
--- NOTE | 2017-04-08 10:53 | Anesthesia Postoperative Note ---
- Date and Time Date: 04/08/17 Time: 10:53 - Status Patient Participated in Evaluation: Patient Participated in Person Vital Signs: Temperature 98.1 F 04/08/17 10:36 Pulse Rate 87 04/08/17 10:50 Respiratory Rate 15 04/08/17 10:50 Blood Pressure 111/59 04/08/17 10:45 Pulse Oximetry 95 04/08/17 10:50 Respiratory Function: Airway Patent, Regular Respirations Cardiovascular Function: Regular Pulse Mental Status: Alert and Oriented Pain Intensity: 0 Hydration: IV Infusing Complications During Recover: None Apparent - Follow-Up Instructions Instructions: Per Surgeon
--- NOTE | 2017-04-08 11:53 | Operative Note ---
DATE OF PROCEDURE 04/08/2017 PREPROCEDURE DIAGNOSIS Right distal fibula fracture with posterior malleolar tibial fracture. POSTPROCEDURE DIAGNOSIS Right distal fibula fracture with posterior malleolar tibial fracture. PROCEDURE Open reduction internal fixation of right ankle fracture. SURGEON Kehinde Rey MD CLUB ATTENDANT None ANESTHESIA Popliteal block with TIVA COMPLICATIONS None DESCRIPTION OF PROCEDURE Mrs. Lomeli and her right ankle were identified and marked in the preoperative holding area. She was brought back to the operating suite and placed supine on the operating table. She was placed under general anesthesia. A popliteal block had been placed in the preoperative holding area. Her right lower extremity was prepped and draped in my normal sterile fashion. Time -out was performed. I began by taking x-rays both AP and lateral. She was well reduced. The posterior malleolar fragment was also well reduced so it was decided not to go prone. The leg was exsanguinate with an Esmarch and the tourniquet inflated to 250 mmHg. A direct lateral approach to the fibula was performed sharply. The fracture site was easily identified. It was short, oblique, which was amenable to a lag screw through the plate. Fracture was reduced manually as an antiglide plate was placed. First screw was placed proximal to the fracture site. This helped again reduce the fracture anatomically. The bite was rather poor, so I did place a second nonlocking screw proximal to the first. This one achieved a better bit. I then placed a lag screw through the plate. This was nonlocking, and achieved an excellent bite. I then proceeded to place the rest of the screws in a locking fashion due to what appeared to be poor bone quality. I did remove the first placed screw and replaced it with a locking screw as well. I then took the ankle through a range of motion under live fluoroscopy, showed mortise was nice and stable. No signs of movement of the posterior malleolar fragment on the lateral view and it was well reduced. The wound was then thoroughly irrigated and the subcutaneous tissue closed with 2-0 Vicryl. A running 3-0 nylon was used in the skin. A sterile dressing was then placed followed by a well-padded well- molded posterior slab and stirrup type splint. The tourniquet was then let down , the drapes were removed and she was taken back to the recovery room under the care of Anesthesia. She tolerated the procedure well and there were no complications. EZ
[2017-04-08] MEDS ORDERED: ONDANSETRON 4 MG/2 ML INJECTION IVP PRN (12:12)
[2017-04-08] MEDS ORDERED: INFLUENZA VAC QIV 2017-18 (Fluarix*)(>=3yo) 0.5ml IM ONE (12:28)
[2017-04-08] MEDS ORDERED: INFLUENZA VAC. INJ. ADMIN CHARGE INJ ONE (14:00)
--- NOTE | 2017-04-08 14:02 | Discharge Instructions ---
Discharge Plan - Med Rec/Dispo Referrals/Follow Up: Kehinde Rey MD [Physician] - [place] Instructions: [facility] [place] General Instructions Additional Instructions: NON weight bearing Prescriptions: New Aspirin *EC* [Ecotrin] 81 mg PO BID #84 tab Acetaminophen [Tylenol] 500 - 1,000 mg PO Q8H PRN #100 tab PRN Reason: Pain Tramadol [Ultram] 50 - 100 mg PO Q6H PRN #60 tab PRN Reason: Pain Continue Vitamin B Complex 1 tab PO DAILY #0 Cholecalciferol (Vitamin D3) [Vitamin D3] 10,000 unit PO DAILY #0 Multivitamin/Iron/Folic Acid [Centrum Women Tablet] 1 tab PO DAILY Fluticasone Nasal [place] [Flonase] 1 spray EA NOSTRIL DAILY PRN PRN Reason: Prn Orders Ferrous Sulfate [Iron] 325 mg PO DAILY BuPROPion XL [Wellbutrin Xl] 150 mg PO DAILY Cetirizine [Zyrtec] 10 mg PO DAILY Rizatriptan [Maxalt 5 mg] 5 mg PO DAILY PRN PRN Reason: Migraine Headache OXcarbazepine [Trileptal] 150 mg PO BIDBL Dextroamphetamine/Amphetamine [Dextroamp-Amphet ER 30 mg Cap] 30 mg PO QAM Sertraline [Zoloft] 200 mg PO DAILY Vitamin E 1 tab PO DAILY Propranolol HCl 40 mg PO BIDBL #0 Ibuprofen [Advil] 200 mg PO Q4H PRN PRN Reason: Pain Albuterol Sulfate [Proair Hfa] 1 puff INH Q4H PRN PRN Reason: Prn Orders Amphetamine/Dextroamphetamine [Adderall] 10 mg PO NOON Trazodone [Desyrel] 200 mg PO HS - Disposition 01 Discharged Home, Self-Care
[2017-04-08] MEDS ORDERED: FLUTICASONE NASAL SPRAY 50mcg EA NOSTRIL PRN (15:34)
[2017-04-08] MEDS: CEFAZOLIN 2 G in NS 100 ML IV SCH (17:15)
[2017-04-08] MEDS: RIZATRIPTAN 5 MG TABLET PO PRN (17:21)
[2017-04-08] MEDS: BuPROPion XL 150mg (24HR) TABLET PO SCH (17:22)
[2017-04-08] MEDS: OXCARBAZEPINE 150 MG TABLET PO SCH (17:23)
[2017-04-08] MEDS: PROPRANOLOL 20 MG TABLET PO SCH (17:23)
--- NOTE | 2017-04-08 17:45 | XRay Report ---
Indication: c/o's pain to left ankle PROCEDURE: XR ankle LT min 3V: Encounter: Initial Comparison: None Findings: There is no acute fracture, dislocation or malalignment identified. Moderate lateral soft tissue swelling. Impression: No acute osseous abnormality. .
[2017-04-08] MEDS: Oxycodone/Acetaminophen 5/325 1 TAB PO PRN ×2 (17:49→21:48)
[2017-04-08] MEDS: TRAZODONE 100 MG TABLET PO SCH (21:08)
[2017-04-08] MEDS: ASPIRIN *EC* 81 MG TABLET PO SCH (21:09)
[2017-04-09] MEDS: CEFAZOLIN 2 G in NS 100 ML IV SCH (01:10)
[2017-04-09] MEDS: Oxycodone/Acetaminophen 5/325 1 TAB PO PRN ×2 (01:42→06:22)
[2017-04-09] MEDS: NS 1,000 ML IV SCH (01:51)
[2017-04-09] MEDS: HYDROMORPHONE 2 MG/ML INJECTION IVP PRN ×3 (02:00→08:50)
[2017-04-09] MEDS ORDERED: KETOROLAC 15 MG/ML INJECTION IVP ONE (08:48)
[2017-04-09] MEDS: RIZATRIPTAN 5 MG TABLET PO PRN ×3 (08:50→20:34)
[2017-04-09] MEDS: PROPRANOLOL 20 MG TABLET PO SCH ×2 (09:22→13:05)
[2017-04-09] MEDS: SERTRALINE 100 MG TABLET PO SCH (09:22)
[2017-04-09] MEDS: MULTI-VITAMIN + MINERAL TABLET PO SCH (09:22)
[2017-04-09] MEDS: OXCARBAZEPINE 150 MG TABLET PO SCH ×2 (09:23→13:05)
[2017-04-09] MEDS: ASPIRIN *EC* 81 MG TABLET PO SCH ×2 (09:23→20:33)
[2017-04-09] MEDS: CETIRIZINE 10 MG TABLET PO SCH (09:23)
[2017-04-09] MEDS: FERROUS SULFATE 324 MG TABLET PO SCH (09:23)
[2017-04-09] MEDS: BuPROPion XL 150mg (24HR) TABLET PO SCH (09:27)
[2017-04-09] MEDS: AMPHETAMINE/DEXTROAMPHETAMINE 10 MG TABLET PO SCH ×2 (09:28→13:04)
--- NOTE | 2017-04-09 10:08 | Orthopedic Progress Note ---
Date: Subjective/Severity of Illness: Patient seen this morning. At time of arrival, one nurse was outside the room crying and another upset and refusing to go back in the patient room. Patient could be heard crying in the room. I entered and asked the patient what was the matter. She claimed the nurse pulled her covers off the bed and inadvertently rolled her operative leg causing worsening pain. Apparently the patient has been cursing and berating the nursing staff prior to this and had "fired" two caregivers before my arrival. snow removal supervisor was present and working to diffuse the situation. The patient is upset at how her therapy has gone and understanding that she is NWB on her operative leg but cannot "hop" as instructed on the other because of pain and swelling. Xrays of the left side were negative, but some lateral swelling and ATFL tenderness. I was informed of this last night and ordered an aircast for that leg as well as ice. Discussed with the patient that "hop" was likely a relative term used by PT last evening and the patient was not expected to literally hop on one leg. Encouraged her to work with PT today on gait with a walker maintaining NWB on the operative leg. Delvin po well. Wants her nicotine gum. Says she has only slept 3 hours because of pain although nurse notes report pain med requests only to find the patient sleeping or resting comfortably. Orthopedic Objective PO Vital signs: Temperature 97.2 F 04/09/17 08:21 Pulse Rate 61 04/09/17 09:34 Respiratory Rate 18 04/09/17 09:34 Blood Pressure 118/57 04/09/17 08:21 Pulse Oximetry 93 04/09/17 09:34 Height and Weight: Weight 232 lb 5.875 oz - Constitutional General Appearance: Present: alert, disheveled, combative, moderate distress, well developed, obese, agitated, other (She is not completely cooperative and argues with staff on most issues.) - Respiratory Exam Present: non-labored - Cardiovascular Exam Present: pedal pulses intact Capillary Refill: < 2-3 Seconds - Abdominal Exam Present: soft. Absent: tenderness, distended - Extremities Exam Comments: RLE splint CDI. NVI. Brisk cap refill. Moves toes. LLE shows mild/moderate lateral ankle swelling. ATFL tenderness. NVI. No medial or achilles tenderness. - Surgical Site Surgical Site Comments: Wounds not visualized secondary to splint. - Integumentary Exam Present: pink, warm, intact, bruising - Neurological Exam Present: intact to light touch, no deficits - Psychiatric Exam Present: alert - Labs Result Diagrams: 04/08/17 04:41 04/08/17 04:41 Orthopedic Assessment and Plan (1) Ankle dislocation Status: Acute Qualifiers: Encounter type: initial encounter Laterality: right Qualified Code(s): S93.04XA - Dislocation of right ankle joint, initial encounter Assessment and Plan: POD1 sp ORIF right ankle. Pain poorly controlled. Staff spoke with Dilip who increased Percocet to 7.5 from 5. I ordered a one time dose of Toradol 15mg IV. Continue ice, elevate. PT to work with patient today. snow removal supervisor contacted the patient's daughter requesting her to come and help manage the patient as she is behaving poorly towards the staff. Daughter relates the patient has a history of PTSD and anxiety and will send other kin to help console the patient. Aircast and ice to left ankle but OK to WB. Continue to mobilize and work towards discharge. - Anticoagulation Therapy Anticoagulation: ASA 325 mg PO BID x6 weeks Hospital Course Summary Disclaimer: The visit summary below is not to be considered part of the above Progress Note.
[2017-04-09] MEDS: OXYCODONE/APAP 7.5 MG/325 MG TABLET PO PRN ×5 (10:29→21:50)
[2017-04-09] MEDS: SENNA + DOCUSATE TABLET PO PRN (11:35)
[2017-04-09] MEDS ORDERED: FALL RISK - PHARMACY CONSULT MC ONE (17:33)
[2017-04-09] MEDS: TRAZODONE 100 MG TABLET PO SCH (20:34)
[2017-04-10] MEDS: OXYCODONE/APAP 7.5 MG/325 MG TABLET PO PRN ×7 (02:45→23:29)
[2017-04-10] MEDS: ALBUTEROL 2.5mg/3ml (0.083%) NEB AEROSOL PRN ×4 (03:16→20:45)
[2017-04-10] MEDS: FERROUS SULFATE 324 MG TABLET PO SCH (08:36)
[2017-04-10] MEDS: OXCARBAZEPINE 150 MG TABLET PO SCH ×2 (08:36→12:02)
[2017-04-10] MEDS: PROPRANOLOL 20 MG TABLET PO SCH ×2 (08:36→12:02)
[2017-04-10] MEDS: AMPHETAMINE/DEXTROAMPHETAMINE 10 MG TABLET PO SCH ×2 (08:37→12:02)
[2017-04-10] MEDS: BuPROPion XL 150mg (24HR) TABLET PO SCH (08:37)
[2017-04-10] MEDS: MULTI-VITAMIN + MINERAL TABLET PO SCH (08:37)
[2017-04-10] MEDS: SERTRALINE 100 MG TABLET PO SCH (08:37)
[2017-04-10] MEDS: ASPIRIN *EC* 81 MG TABLET PO SCH ×2 (08:37→20:38)
[2017-04-10] MEDS: CETIRIZINE 10 MG TABLET PO SCH (08:37)
[2017-04-10] MEDS: SENNA + DOCUSATE TABLET PO PRN (08:40)
--- NOTE | 2017-04-10 12:11 | Orthopedic Progress Note ---
Date: Subjective/Severity of Illness: Patient seen this morning. She was sleeping as I entered the room. She did not have her Aircast on her left ankle. Nurse reports she has refused to wear it. Nurse also reports she refused PT yesterday. She is wondering why we are mobilizing her. It was explained that mobility helps decrease postoperative complications. Her pain has been improved with Percocet 7.5, but now she is a sleepy. Orthopedic Objective PO Vital signs: Temperature 98.0 F 04/10/17 08:00 Pulse Rate 60 04/10/17 08:04 Respiratory Rate 16 04/10/17 08:00 Blood Pressure 119/63 04/10/17 08:00 Pulse Oximetry 95 04/10/17 10:05 Height and Weight: Weight 232 lb 5.875 oz - Constitutional General Appearance: Present: alert, disheveled, well developed, obese, other ( She is not completely cooperative and argues with staff on most issues.) - Respiratory Exam Present: non-labored - Cardiovascular Exam Present: pedal pulses intact - Abdominal Exam Present: soft. Absent: tenderness, distended - Extremities Exam Comments: she demonstrates AROM of bilateral toes on command - Surgical Site Surgical Site Comments: splint is on and dry - Integumentary Exam Present: pink, warm, intact, bruising - Neurological Exam Present: intact to light touch, no deficits - Psychiatric Exam Present: alert - Labs Result Diagrams: 04/10/17 10:59 04/10/17 10:59 Abnormal lab results 04/10/17 Range/Units 10:59 RBC 3.83 L (4.00-5.20) M/MM3 Hgb 10.7 L D (12-16) GM/DL Hct 33.5 L D (36-46) % H & H 04/10/17 Range/Units 10:59 Hgb 10.7 L D (12-16) GM/DL Hct 33.5 L D (36-46) % Orthopedic Assessment and Plan (1) Ankle dislocation Status: Acute Qualifiers: Encounter type: initial encounter Laterality: right Qualified Code(s): S93.04XA - Dislocation of right ankle joint, initial encounter Assessment and Plan: POD2 sp ORIF right ankle. Pain better controlled. Continue ice, elevate. PT to continue to work with patient. Aircast and ice to left ankle but OK to WB. Continue to mobilize and work towards discharge hall coordinator to help with discharge plans. - Anticoagulation Therapy Anticoagulation: ASA 325 mg PO BID x6 weeks Hospital Course Summary Disclaimer: The visit summary below is not to be considered part of the above Progress Note.
[2017-04-10] MEDS: TRAZODONE 100 MG TABLET PO SCH (20:38)
[2017-04-11] MEDS: OXYCODONE/APAP 7.5 MG/325 MG TABLET PO PRN ×5 (00:53→17:43)
[2017-04-11] MEDS: HYDROMORPHONE 2 MG/ML INJECTION IVP PRN ×4 (03:42→20:28)
[2017-04-11] MEDS: ALBUTEROL 2.5mg/3ml (0.083%) NEB AEROSOL PRN (04:34)
[2017-04-11] MEDS: RIZATRIPTAN 5 MG TABLET PO PRN (05:09)
[2017-04-11] MEDS: MULTI-VITAMIN + MINERAL TABLET PO SCH (08:24)
[2017-04-11] MEDS: SERTRALINE 100 MG TABLET PO SCH (08:24)
[2017-04-11] MEDS: SENNA + DOCUSATE TABLET PO PRN (08:24)
[2017-04-11] MEDS: PROPRANOLOL 20 MG TABLET PO SCH ×2 (08:25→13:33)
[2017-04-11] MEDS: FERROUS SULFATE 324 MG TABLET PO SCH (08:25)
[2017-04-11] MEDS: BuPROPion XL 150mg (24HR) TABLET PO SCH ×3 (08:25→09:35)
[2017-04-11] MEDS: OXCARBAZEPINE 150 MG TABLET PO SCH ×5 (08:26→17:00)
[2017-04-11] MEDS: CETIRIZINE 10 MG TABLET PO SCH (08:26)
[2017-04-11] MEDS: ASPIRIN *EC* 81 MG TABLET PO SCH ×2 (08:44→20:02)
[2017-04-11] MEDS: AMPHETAMINE/DEXTROAMPHETAMINE 10 MG TABLET PO SCH ×2 (08:44→13:32)
[2017-04-11] MEDS: POLYETHYL GLYCOL 3350 17gm PACKET PO SCH (09:33)
--- NOTE | 2017-04-11 11:42 | Orthopedic Progress Note ---
Date: Subjective/Severity of Illness: Moderate ankle pain. Difficulties with ambulation and transfers. Pt is apprehensive about discharge until she is more comfortable. She admits to a difficult weekend. Has some burning with urination and feels she has to push down to urinate. Left ankle is sore. Denies left knee or other joint pain Orthopedic Objective PO Vital signs: Temperature 96.2 F L 04/11/17 07:51 Pulse Rate 57 L 04/11/17 07:51 Respiratory Rate 16 04/11/17 07:51 Blood Pressure 105/58 04/11/17 07:51 Pulse Oximetry 91 04/11/17 07:51 Height and Weight: Weight 236 lb 8.896 oz - Constitutional General Appearance: Present: alert, cooperative, well developed, obese - Respiratory Exam Present: non-labored - Cardiovascular Exam Present: pedal pulses intact Capillary Refill: < 2-3 Seconds - Abdominal Exam Present: soft. Absent: tenderness, distended - Extremities Exam Extremities: Present: normal capillary refill Comments: JULIANN wrap reapplied as pt thought it was too tight. The visible skin looked good. - Knee Exam Knee Exam: Present: other (Small abrasions on the left knee appear to be healing well.). Absent: effusion - Surgical Site Incision: clean, dry, intact, other (Splint intact and in good condition.) - Integumentary Exam Present: pink, warm, intact, bruising - Neurological Exam Present: intact to light touch, no deficits - Psychiatric Exam Present: alert - Labs Result Diagrams: 04/10/17 10:59 04/10/17 10:59 Abnormal lab results 04/10/17 Range/Units 10:59 RBC 3.83 L (4.00-5.20) M/MM3 Hgb 10.7 L D (12-16) GM/DL Hct 33.5 L D (36-46) % H & H 04/10/17 Range/Units 10:59 Hgb 10.7 L D (12-16) GM/DL Hct 33.5 L D (36-46) % Orthopedic Assessment and Plan (1) Ankle dislocation Status: Acute Qualifiers: Encounter type: initial encounter Laterality: right Qualified Code(s): S93.04XA - Dislocation of right ankle joint, initial encounter Assessment and Plan: S/P ORIF right ankle Pain better controlled. Continue ice, elevate. Check UA due to burning on urination. She is getting up to the bathroom and not using the bedpan now. Hesitancy of urination likely due to narcotic use. PT to continue to work with patient. CM to look into discharge options. Aircast and ice to left ankle but OK to WB. Continue to mobilize and work towards discharge coordinator of health services to help with discharge plans. - Anticoagulation Therapy Anticoagulation: ASA 325 mg PO BID x6 weeks Hospital Course Summary Disclaimer: The visit summary below is not to be considered part of the above Progress Note.
[2017-04-11] MEDS: TRAZODONE 100 MG TABLET PO SCH (20:02)
[2017-04-11] MEDS: SALINE FLUSH 10ml SYRINGE IV PRN ×2 (20:04→20:29)
[2017-04-12] MEDS: OXYCODONE/APAP 7.5 MG/325 MG TABLET PO PRN ×5 (02:27→21:30)
[2017-04-12] MEDS: HYDROMORPHONE 2 MG/ML INJECTION IVP PRN ×2 (05:52→14:09)
[2017-04-12] MEDS: SALINE FLUSH 10ml SYRINGE IV PRN ×2 (05:53→21:32)
--- NOTE | 2017-04-12 07:36 | Orthopedic Progress Note ---
Date: Subjective/Severity of Illness: Jaqueline has been up walking on her own. Nurse reports she has been at least toe touch weight bearing on her operative side despite orders to be NWB. Please note nursing, PT, and providers have consistently provided her with appropriate NWB status and she continues to be noncompliant on multiple occasions. She denies dysuria today. She required one .5 dose of IV pain meds because she refused to wait an additional 45 minutes to her next pain medicine dose. She has no new complaints today. Orthopedic Objective PO Vital signs: Temperature 97.1 F 04/12/17 04:00 Pulse Rate 62 04/12/17 05:47 Respiratory Rate 18 04/12/17 04:00 Blood Pressure 116/52 04/12/17 05:47 Pulse Oximetry 92 04/12/17 04:00 Height and Weight: Weight 236 lb 8.896 oz - Constitutional General Appearance: Present: alert, cooperative, well developed, obese - Respiratory Exam Present: non-labored - Cardiovascular Exam Present: pedal pulses intact Capillary Refill: < 2-3 Seconds - Abdominal Exam Present: soft. Absent: tenderness, distended - Extremities Exam Extremities: Present: normal capillary refill - Knee Exam Knee Exam: Present: other (Small abrasions on the left knee appear to be healing well.). Absent: effusion - Surgical Site Incision: clean, dry, intact, other (Splint intact and in good condition.) - Integumentary Exam Present: pink, warm, intact, bruising - Neurological Exam Present: intact to light touch, no deficits - Psychiatric Exam Present: alert - Labs Result Diagrams: 04/10/17 10:59 04/10/17 10:59 Abnormal lab results 04/11/17 Range/Units 15:17 Ur Leukocyte Esterase 1+ A (NEGATIVE) Urine Bacteria Trace H (NEGATIVE) H & H 04/10/17 Range/Units 10:59 Hgb 10.7 L D (12-16) GM/DL Hct 33.5 L D (36-46) % Orthopedic Assessment and Plan (1) Ankle dislocation Status: Acute Qualifiers: Encounter type: initial encounter Laterality: right Qualified Code(s): S93.04XA - Dislocation of right ankle joint, initial encounter Assessment and Plan: S/P ORIF right ankle Pain is reasonably controlled with Percocet. Continue ice, elevate. UA shows 1 + leukocytes and trace bacteria with culture not being indicated. Hesitancy of urination likely due to narcotic use. PT to continue to work with patient. CM to look into discharge options. Aircast and ice to left ankle but OK to WB. She is noncompliant with weight bearing restrictions. Discharge today. vocational coordinator to help with discharge plans. - Anticoagulation Therapy Anticoagulation: ASA 325 mg PO BID x6 weeks Hospital Course Summary Disclaimer: The visit summary below is not to be considered part of the above Progress Note.
--- NOTE | 2017-04-12 07:45 | Discharge Instructions ---
Discharge Plan - Med Rec/Dispo Referrals/Follow Up: Kehinde Rey MD [Physician] - [place] Instructions: [facility] [place] General Instructions, [facility] [place] Ortho Postop Instructions Additional Instructions: NON weight bearing Prescriptions: New Aspirin *EC* [Ecotrin] 81 mg PO BID #84 tab Oxycodone/Apap 7.5/325 [Percocet 7.5/325] 1 - 2 tab PO Q4H PRN #60 tab PRN Reason: Pain PEG 3350 17gm PACKET [Miralax] 17 gm PO DAILY #30 packet Continue Vitamin B Complex 1 tab PO DAILY #0 Cholecalciferol (Vitamin D3) [Vitamin D3] 10,000 unit PO DAILY #0 Multivitamin/Iron/Folic Acid [Centrum Women Tablet] 1 tab PO DAILY Fluticasone Nasal [place] [Flonase] 1 spray EA NOSTRIL DAILY PRN PRN Reason: Prn Orders Ferrous Sulfate [Iron] 325 mg PO DAILY BuPROPion XL [Wellbutrin Xl] 150 mg PO DAILY Cetirizine [Zyrtec] 10 mg PO DAILY Rizatriptan [Maxalt 5 mg] 5 mg PO DAILY PRN PRN Reason: Migraine Headache OXcarbazepine [Trileptal] 150 mg PO BIDBL Dextroamphetamine/Amphetamine [Dextroamp-Amphet ER 30 mg Cap] 30 mg PO QAM Sertraline [Zoloft] 200 mg PO DAILY Vitamin E 1 tab PO DAILY Propranolol HCl 40 mg PO BIDBL #0 Ibuprofen [Advil] 200 mg PO Q4H PRN PRN Reason: Pain Albuterol Sulfate [Proair Hfa] 1 puff INH Q4H PRN PRN Reason: Prn Orders Amphetamine/Dextroamphetamine [Adderall] 10 mg PO NOON Trazodone [Desyrel] 200 mg PO HS - Disposition 01 Discharged Home, Self-Care
[2017-04-12] MEDS: FERROUS SULFATE 324 MG TABLET PO SCH (08:20)
[2017-04-12] MEDS: CETIRIZINE 10 MG TABLET PO SCH (08:20)
[2017-04-12] MEDS: POLYETHYL GLYCOL 3350 17gm PACKET PO SCH (08:20)
[2017-04-12] MEDS: OXCARBAZEPINE 150 MG TABLET PO SCH ×2 (08:20→12:52)
[2017-04-12] MEDS: ASPIRIN *EC* 81 MG TABLET PO SCH ×2 (08:20→21:30)
[2017-04-12] MEDS: MULTI-VITAMIN + MINERAL TABLET PO SCH (08:20)
[2017-04-12] MEDS: BuPROPion XL 150mg (24HR) TABLET PO SCH (08:20)
[2017-04-12] MEDS: SERTRALINE 100 MG TABLET PO SCH (08:21)
[2017-04-12] MEDS: PROPRANOLOL 20 MG TABLET PO SCH ×3 (08:21→12:46)
[2017-04-12] MEDS: AMPHETAMINE/DEXTROAMPHETAMINE 10 MG TABLET PO SCH ×2 (08:28→12:51)
[2017-04-12] MEDS: RIZATRIPTAN 5 MG TABLET PO PRN (09:36)
[2017-04-12] MEDS: DiphenhydrAMINE 25 MG CAPSULE PO PRN (18:05)
[2017-04-12] MEDS: TRAZODONE 100 MG TABLET PO SCH (21:30)
[2017-04-13] MEDS: OXYCODONE/APAP 7.5 MG/325 MG TABLET PO PRN ×5 (01:26→17:48)
[2017-04-13] MEDS: DiphenhydrAMINE 25 MG CAPSULE PO PRN ×2 (01:27→09:40)
[2017-04-13] MEDS: SALINE FLUSH 10ml SYRINGE IV PRN (05:47)
--- NOTE | 2017-04-13 08:45 | Discharge Summary ---
Orthopedic Discharge Info Date of admission: 04/08/17 14:54 Anticipated date of discharge: 04/13/17 Primary care physician: Radha Payne APRN Attending Physician: Kehinde Rey MD Consults: 04/10/17 12:17 Case Management Consult [CONS] Routine Reason For Exam: discharge planning 04/12/17 IRU Screening [Inpatient Rehab Screening] [CONS] Routine Screen requested by:: Family/Patient Comment Text:: DC 04/12 - Discharge Diagnosis (1) Ankle dislocation Qualifiers: Encounter type: initial encounter Laterality: right Qualified Code(s): S93.04XA - Dislocation of right ankle joint, initial encounter Status: Acute - Procedures Procedures: ORIF right distal fibula 04/08/17 Dr Rey - Laboratory Result Diagrams: 04/10/17 10:59 04/10/17 10:59 Laboratory: H & H 04/10/17 Range/Units 10:59 Hgb 10.7 L D (12-16) GM/DL Hct 33.5 L D (36-46) % Orthopedic Discharge HPI - HPI Comments 57 yo female who fell 04/07/17 and suffered a fx-dislocation of her right ankle. She was [place] [facility] [place] showed a fx-dislocation of the right ankle. She had a fracture of the right distal fibula. After considerable discussion with the pt and ER staff, she agreed to be seen by our service. Pt does not report numbness in the foot. She moved her toes and was able to lift her leg. She denied injury to other joints or extremities while in the ER department.. Orthopedic Hospital Course Hospital course: 04/13/17 08:45 After appropriate preoperative clearance and signing of operative consent, the patient was given IV antibiotics, according to orthopedic protocol. The patient was taken to the operating room and underwent ORIF of the right distal fibula. The ankle joint was stable and a trans syndesmotic screw was not required. Following surgery, antibiotics were discontinued less than 24 hours according to joint protocol. Aspirin was initiated and SCDs added for DVT prevention. She had some hesitancy of urination along with mild burning, but UA was not consistent with a UTI. Her labs have remained stable. Oxygen sats would occasionally decrease at night but did not require chronic use of oxygen. She had a sleep study in the past and is encouraged to f/u with her PCP to possibly repeat that study. She developed a mild macular type rash over the right leg above the surgical site. The rash was itchy but did not seem to spread. She is receiving some PO Benadryl for this. Pain control was obtained via multimodal approach and is being discharged on oral agents alone. Bowel motivation addressed with scheduled and PRN medications. Early mobilization was initiated through PT services but due to pain and poor self-motivation, her discharge was delayed a short time. Discharge arrangements made by a collaborative effort between the patient and Case Management. Pt will go to [place] [facility] [place] [facility] for continued rehab. Follow-up is scheduled in 2 weeks from the time of surgery. Discharge instructions given by orthopedic providers and nursing staff at discharge. Discharge condition was good. 04/13/17 15:37 Discharge Plan - Med Rec/Dispo Referrals/Follow Up: Dilip Ko PA [Physician Chief Passenger Ship Steward/Stewardess] - 04/25/17 8:30 am (Arrive 15 minutes early to allow for xrays to be taken.) [place] Instructions: [facility] [place] Instructions, [facility] [place]o Postop Instructions Additional Instructions: You must remain NON weight bearing on the operative leg. Keep splint on at all times. Do not get the splint wet. Prescriptions: New Aspirin *EC* [Ecotrin] 81 mg PO BID #84 tab Oxycodone/Apap 7.5/325 [Percocet 7.5/325] 1 - 2 tab PO Q4H PRN #60 tab PRN Reason: Pain PEG 3350 17gm PACKET [Miralax] 17 gm PO DAILY #30 packet PEG 3350 17gm PACKET [Miralax] 17 gm PO DAILY packet Continue Vitamin B Complex 1 tab PO DAILY #0 Cholecalciferol (Vitamin D3) [Vitamin D3] 10,000 unit PO DAILY #0 Multivitamin/Iron/Folic Acid [Centrum Women Tablet] 1 tab PO DAILY Fluticasone Nasal [place] [Flonase] 1 spray EA NOSTRIL DAILY PRN PRN Reason: Prn Orders Ferrous Sulfate [Iron] 325 mg PO DAILY BuPROPion XL [Wellbutrin Xl] 150 mg PO DAILY Cetirizine [Zyrtec] 10 mg PO DAILY Rizatriptan [Maxalt 5 mg] 5 mg PO DAILY PRN PRN Reason: Migraine Headache OXcarbazepine [Trileptal] 150 mg PO BIDBL Sertraline [Zoloft] 200 mg PO DAILY Vitamin E 1 tab PO DAILY Amphetamine/Dextroamphetamine [Adderall] 10 mg PO NOON #5 tab Dextroamphetamine/Amphetamine [Dextroamp-Amphet ER 30 mg Cap] 30 mg PO QAM # 5 cap.er.24h Propranolol HCl 40 mg PO BIDBL #0 Ibuprofen [Advil] 200 mg PO Q4H PRN PRN Reason: Pain Albuterol Sulfate [Proair Hfa] 1 puff INH Q4H PRN PRN Reason: Prn Orders Trazodone [Desyrel] 200 mg PO HS - Disposition 62 To [facility] [place]
[2017-04-13] MEDS: BuPROPion XL 150mg (24HR) TABLET PO SCH (09:02)
[2017-04-13] MEDS: AMPHETAMINE/DEXTROAMPHETAMINE 10 MG TABLET PO SCH ×2 (09:02→13:02)
[2017-04-13] MEDS: POLYETHYL GLYCOL 3350 17gm PACKET PO SCH ×2 (09:03→09:09)
[2017-04-13] MEDS: CETIRIZINE 10 MG TABLET PO SCH (09:03)
[2017-04-13] MEDS: ASPIRIN *EC* 81 MG TABLET PO SCH (09:03)
[2017-04-13] MEDS: PROPRANOLOL 20 MG TABLET PO SCH ×2 (09:03→13:02)
[2017-04-13] MEDS: OXCARBAZEPINE 150 MG TABLET PO SCH ×2 (09:03→13:01)
[2017-04-13] MEDS: SERTRALINE 100 MG TABLET PO SCH (09:03)
[2017-04-13] MEDS: SENNA + DOCUSATE TABLET PO PRN (09:03)
[2017-04-13] MEDS: FERROUS SULFATE 324 MG TABLET PO SCH (09:03)
[2017-04-13] MEDS: MULTI-VITAMIN + MINERAL TABLET PO SCH (09:03)
[2017-04-13 15:57] VITALS: BP 130/60; RESP 16; TEMP 96.9; O2SAT 94
[2017-04-13 16:15] VITALS: PULSE 65
== END 2017-04-13 17:55 | DRG 494 ==
LOC: ED 12:21 → SRG 12:21
PROVIDERS: ADMIT Orthopaedic Surgery; ATTEND Orthopaedic Surgery

== ENCOUNTER 2017-04-13 17:55 | Inpatient (IN) ==
--- OUTSIDE RECORDS SUMMARY | 2017-04-13 18:12 | External Medical Summary ---
[...] End Date Status Dosage Date Trazodone HCl [facility] [address] 150 MG Orally at Mar 08, 1/2 to 09-01 bedtime 2014 tablet at bedtime Results No Known Results Summary Purpose eClinicalWorks Submission
--- OUTSIDE RECORDS SUMMARY | 2017-04-13 18:12 | External Medical Summary ---
[...] End Status Dosage System Date Date Ofloxacin [facility] [address]-09 0.3 % Otic Once May 20, May 25, 10 drops a day 2015 2015 into affected ear Vitamin C [facility] [address]-94 not defined Keflex [facility] [address]-73 500 MG Orally May 11, May 21, 1 capsule Twice a day 2015 2015 Trazodone HCl [facility] 99645630910 150 Orally take one-half to one tablet every night at bedtime as needed Vit E-Vit [facility] 30847-16523 not defined C-Beta Orally Carotene Rizatriptan [facility] [address]-13 5 MG Orally Oct 25, 1 tablet as Benzoate once a day at 2016 needed one start of time migraine, may repeat once in 2 hours Omeprazole [facility] [address]-41 20 MG Orally December 28, 1 capsule Once a day 2015 Propranolol [facility] [address]-33 40 MG Orally Oct 25, 1 tablet HCl Twice a day 2015 Pristiq [facility] [address]-84 100 MG Orally May 05, 1 tablet Once a day 2014 ProAir HFA [facility] [address]-74 108 (90 Base) May 20, 2 puffs as MCG/ACT 2015 needed Inhalation every 4 hrs Amoxicillin-Po [facility] [address]-31 875-125 MG May 20, May 27, 1 tablet t Clavulanate Orally Twice a 2015 2015 day Vitamin D-3 [facility] [address]-74 96833 Orally not defined daily Iron [facility] [address]-85 325 (65 Fe) MG December 28, 1 tablet Orally Once a 2015 day Procedures Procedure Coding System Code Date OFFICE VISIT, EST-LOW COMPLEXITY (15 MIN.) CPT-4 54102 May 20, 2016 Vital Signs Date/Time: May 20, 2016 Temperature 97.7 F Height 63 in Weight 203 lbs Blood Pressure Diastolic 70 mm Hg Blood Pressure Systolic 106 mm Hg Cardiac Monitoring Heart Rate 108 /min BMI 35.96 Index Oximetry 99 % Respiratory Rate 16 /min Results No Known Results Summary Purpose eClinicalWorks Submission
--- OUTSIDE RECORDS SUMMARY | 2017-04-13 18:12 | External Medical Summary ---
[...] End Date Status Dosage Adderall XR [facility] [place] [address] 30 MG Orally in November 05, 1 capsule 0-30 the morning and 2014 at noon daily for ADHD Results No Known Results Summary Purpose eClinicalWorks Submission
--- OUTSIDE RECORDS SUMMARY | 2017-04-13 18:12 | External Medical Summary ---
[...] Medications Results No Known Results Summary Purpose eClinicalPacket Digital Submission
--- OUTSIDE RECORDS SUMMARY | 2017-04-13 18:12 | External Medical Summary ---
[...] Date Status Dosage System Date Propranolol HCl [facility] [place] [address]-31 20 MG Orally 1 tablet 73-00 Twice a day as needed Adderall XR [facility] [place] [address]2915-98 30 MG Orally November 05, 2 capsules 50-30 Once a day 2014 in the morning Oxybutynin [facility] [place] 99394-75 10 MG Orally not defined Chloride ER 07-01 Estradiol [facility] [place] [address]5572-29 2 MG Orally 1 tablet 58-01 Daily for Three Weeks, 1 Week off Pristiq [facility] [place] [address]58[address]-85 100 MG Orally 1 tablet 22-01 Once a day Procedures Procedure Coding System Code Date OFFICE VISIT, EST-MOD. COMPLEXITY (25 MIN) CPT-4 31088 November 05, 2014 Vital Signs Date/Time: November 05, 2014 Height 63 in Weight 209.8 lbs Temperature 98.5 F Blood Pressure Diastolic 68 mm Hg Blood Pressure Systolic 120 mm Hg Cardiac Monitoring Heart Rate 68 /min BMI 37.16 Index Respiratory Rate 20 /min Results No Known Results Summary Purpose eClinicalWorks Submission
--- OUTSIDE RECORDS SUMMARY | 2017-04-13 18:12 | External Medical Summary ---
[...] Date End Date Status Dosage Adderall XR [facility] [place] [address] 30 MG Orally in November 05, October 31, 1 capsule 0-30 the morning and 2014 2016 at noon daily for ADHD Results No Known Results Summary Purpose eClinicalWorks Submission
[2017-04-13] MEDS ORDERED: FALL RISK - PHARMACY CONSULT XX ONE ×2 (19:47)
[2017-04-13] MEDS ORDERED: FLUTICASONE NASAL SPRAY 50mcg EA NOSTRIL PRN (19:47)
[2017-04-13] MEDS ORDERED: SALINE FLUSH 10ml SYRINGE IV PRN (19:47)
[2017-04-13] MEDS ORDERED: SENNA + DOCUSATE TABLET PO PRN (19:47)
[2017-04-13] MEDS ORDERED: ALBUTEROL 2.5mg/3ml (0.083%) NEB AEROSOL PRN (19:47)
[2017-04-13] MEDS ORDERED: ONDANSETRON 4 MG/2 ML INJECTION IVP PRN ×2 (19:47)
[2017-04-13 20:59] VITALS: BMI 39.4
--- NOTE | 2017-04-13 21:32 | IRU History & Physical Report ---
HPI IRU Date: Chief complaint: My ankle hurts HPI: Ms. Lomeli is a 57-year-old female who is referred by Dr. Kehinde Rey. Her primary care provider is Radha Dalal. She was sitting on her toilet on April 07, 2017. She had just gotten back from walking her dog. She states that when she started to get up off the toilet she felt as though the right foot was asleep. She tried to bear weight but lost her balance. This resulted in a dislocation of the right ankle. She was brought to the emergency department at [facility] for evaluation. At that location she was noted to have a dislocation of the right ankle. She underwent reduction of the dislocation by Dr. Rey in the emergency department under conscious sedation. She was admitted to the hospital. CT scan of the ankle revealed a fracture through the tibia and fibula. She was taken to surgery by Dr. Rey on April 08, 2017 for open reduction internal fixation of the right ankle. Left ankle was also injured but it was more of a sprain rather than a fracture. The patient at the present time continues to have discomfort in the ankle. A cast is in place and the right lower leg is wrapped. She has recently been given some Dilaudid and developed a red rash felt to be secondary to the medication. She does have multiple medicinal allergies including codeine, hydrocodone as well as topiramate. She is nonweightbearing in the right lower extremity but may bear weight in the left lower extremity. Her hemoglobin is a bit low at 10.7. Prior to this injury, she was totally independent with all ADLs and able to ambulate without difficulty. She was a community ambulator. She was very active. The patient states that she is a recovering alcoholic. She is at risk for multiple complications in view of her sedentary situation as well as obesity. She is at risk of DVT, uncontrolled pain, narcotic dependence, depression, constipation with possible obstruction. She is at risk for reinjuring the fracture site in the event of a fall. She is at risk for surgical site infection. She does report difficulty passing her urine which was attributed to the narcotic usage. Medical issues identified which will be carefully monitored: 1. Anemia at 10.7 2. At risk for DVT/PE 3. At risk for uncontrolled pain 4. At risk for constipation with possible obstruction. The patient will be seen by the following disciplines: 1. PT and OT to address mobilization, ADLs etc. 2. 24-hour nursing rehabilitation team to monitor her pain, evidence of infection and general medical status. 3. Medical supervision regarding the above issues. [facility] Patient Stated Medical History Other HEENT Yes: wears glasses Coronary Artery Disease No Hypertension No Asthma No Sleep Apnea No Diabetes Mellitus Type 2 No Gastroesophageal Reflux Yes Disease Hx Incontinence No Other Musculoskeletal Yes: anxiety Anesthesia Reactions Yes: does not want Ketamine due to previous bad experience Post Menopausal Yes Medical History Updates: has a history of migraine headaches for which she has propranolol available but has not used. Apparently had an overnight oximetry demonstrating hypoxia. Has not had a formal sleep study. Surgical History: 1. Cholecystectomy. 2. Partial hysterectomy without BSO. 3. T&A. 4. Right ankle open reduction internal fixation this admission Family History: Mother has history of COPD and cancer of the breast. - Social History Smoking status: Former smoker Packs per day: 1 (started smoking at age 23. Last cigarette age 44.) Packs-years: 21 Substance use type: does not use Alcohol intake: former Alcohol intake frequency: former alcohol drinker (describes herself as recovering alcoholic with last intake 1994.) Household members: none Current occupational status: employed Current occupation: substance abuse counselor Does patient use chewing tobacco?: No Current residence: Apartment/Private Home Social history: sshe lives in her own apartment. There are 4 steps to get into the home. from cancer 3 years ago. She is employed as a substance abuse counselor. Review of Systems - Constitutional Constitutional: Absent: anorexia, chills, daytime sleepiness, increased appetite , lethargy, weight gain, weight loss - EENMT Eyes: Absent: blurry vision, change in vision, diplopia Balance: Absent: vertigo Mouth/Throat: Absent: pain, sore throat, dry mouth - Cardiovascular Cardiovascular: Absent: chest pain, palpitations, syncope, dyspnea on exertion, orthopnea, edema, cyanosis - Respiratory Respiratory: Absent: cough, dyspnea, hemoptysis, dyspnea on exertion, wheezing, pain on inspiration, chest congestion, excessive phlegm production - Gastrointestinal Gastrointestinal: Absent: abdominal pain, change in bowel habits, change in stool character, coffee ground emesis, constipation, diarrhea, dyspepsia, dysphagia - Musculoskeletal Musculoskeletal: Present: deformity. Absent: abnormal gait, arthralgias, back pain - Integumentary/Breasts Integumentary: Absent: alopecia, erythema, lesions - Neurological Neurological: Present: headache(s). Absent: abnormal gait, abnormal movements, abnormal speech, burning sensations, confusion, convulsions, dizziness, frequent falls, loss of vision, memory loss, numbness - Psychiatric Psychiatric: Present: anxiety, depression. Absent: abnormal sleep pattern, anhedonia, auditory hallucinations - Hematologic/Lymphatic Hematologic/Lymphatic: Absent: easy bleeding, lymphadenopathy Medications Home Medications Medication Instructions Recorded Confirmed Type Cholecalciferol (Vitamin D3) 10,000 unit PO DAILY #0 09/27/15 04/07/17 History [Vitamin D3] Vitamin B Complex 1 tab PO DAILY #0 09/27/15 04/07/17 History Propranolol HCl 40 mg PO BIDBL #0 07/30/16 04/07/17 History Albuterol Sulfate [Proair Hfa] 1 puff INH Q4H PRN 04/02/17 04/07/17 History BuPROPion XL [Wellbutrin Xl] 150 mg PO DAILY 04/02/17 04/07/17 History Cetirizine [Zyrtec] 10 mg PO DAILY 04/02/17 04/07/17 History Ferrous Sulfate [Iron] 325 mg PO DAILY 04/02/17 04/07/17 History Fluticasone Nasal [place] [Flonase] 1 spray EA NOSTRIL DAILY PRN 04/02/17 History Ibuprofen [Advil] 200 mg PO Q4H PRN 04/02/17 04/07/17 History Multivitamin/Iron/Folic Acid 1 tab PO DAILY 04/02/17 04/07/17 History [Centrum Women Tablet] OXcarbazepine [Trileptal] 150 mg PO BIDBL 04/02/17 04/07/17 History Rizatriptan [Maxalt 5 mg] 5 mg PO DAILY PRN 04/02/17 04/07/17 History Sertraline [Zoloft] 200 mg PO DAILY 04/02/17 04/07/17 History Trazodone [Desyrel] 200 mg PO HS 04/02/17 04/07/17 History Vitamin E 1 tab PO DAILY 04/02/17 04/07/17 History Allergies Allergy/AdvReac Type Severity Reaction Status Date / Time codeine Allergy Unknown Verified 04/07/17 12:24 hydrocodone Allergy Unknown Nausea Verified 04/07/17 13:29 Potatoes Allergy Unknown Verified 04/07/17 13:29 tomato Allergy Unknown Verified 04/07/17 12:24 topiramate Allergy Unknown Verified 04/07/17 12:24 Results IRU - Labs Labs: I reviewed notes and radiographic data as well as laboratory results from previous acute admission. Exam Vital Signs: Temperature 97.8 F 04/13/17 18:20 Pulse Rate 68 04/13/17 18:20 Respiratory Rate 16 04/13/17 18:20 Blood Pressure 121/72 04/13/17 18:20 Pulse Oximetry 99 04/13/17 18:20 Height/Weight/BMI: Height 1.65 m Weight 107.5 kg Body Mass Index 39.4 - Constitutional Present: moderate distress, obese, cooperative. Absent: diaphoretic, disheveled , combative, agitated, somnolent - Routine HEENT Exam Head: Present: normocephalic, atraumatic. Absent: cushingoid faces, abrasion, laceration, hematoma Eye: Present: EOMI, PERRL. Absent: conjunctival icterus, scleral injection ENT: Present: mucous membranes moist, oropharynx clear - Routine Neck Exam Present: supple, full ROM. Absent: lymphadenopathy, thyromegaly - Routine Respiratory Exam Absent: accessory muscle use, dyspnea, decreased breath sounds, CTA bilaterally , prolonged expiratory phase, rales, respiratory distress, rhonchi, stridor, wheezes, crackles - Routine Cardiovascular Exam Present: RRR, S1, S2, no murmur. Absent: S3, S4 - Routine Abdominal Exam Present: soft, normoactive bowel sounds, non distended, non tender. Absent: guarding, firm, organomegaly, wound - Routine Extremities Exam Present: pulses intact, normal capillary refill. Absent: cyanosis, clubbing, edema - Routine Skin Exam Present: intact, dry, rash (red papular/nearly confluent rash right lower extremity and possibly on chest. Consistent with a drug eruption.). Absent: cyanosis, erythema - Routine Neurological Exam Present: alert, oriented X3, CN II-XII intact, sensory deficit, motor deficit - Routine Psychiatric Exam Present: normal affect, normal thought process, cooperative, good insight, good judgment Sepsis Assessment - Evaluation Confirmed Suspected Infection: No SIRS Criteria: none IRU A/P (1) Ankle dislocation Qualifiers: Encounter type: initial encounter Laterality: right Qualified Code(s): S93.04XA - Dislocation of right ankle joint, initial encounter Current visit: No Status: Acute (2) Tibia/fibula fracture Qualifiers: Encounter type: initial encounter Fracture type: closed Laterality: right Qualified Code(s): S82.201A - Unspecified fracture of shaft of right tibia, initial encounter for closed fracture; S82.401A - Unspecified fracture of shaft of right fibula, initial encounter for closed fracture; S82.401A - Unspecified fracture of shaft of right fibula, initial encounter for closed fracture Current visit: Yes Status: Acute DVT Prophylaxis: SCD's, Lovenox Resuscitation Status: Full Code - Course Hospital Course: Donato Fong MD: - Interventions to Obtain Goals PT Treatment Plan: Balance/Proprioception, Functional Activities, Gait Training , Patient/Family Education OT Treatment Plan: ADL (Basic Care), Balance Training, IADL, Pt./Family Education Goals Progress/Modifications: An intensive individualized program of physical therapy and occupational therapy will be developed for this patient. We will monitor carefully for evidence of surgical site infection, uncontrolled pain, DVT/PE, constipation. It is anticipated the patient will be able to return to her previous living situation with modified independent functioning for all ADLs.
--- NOTE | 2017-04-13 21:48 | IRU 24Hr Post Admit Eval ---
24 Hr Post Admission Physical - Relevant Changes Relevant Changes: No Reviewed: I have reviewed the patient's information and concur with the finding and results of the pre-admission screen. Certification: I certify the patient for rehabilitation. - Patient Condition (1) Ankle dislocation Status: Acute Qualifiers: Encounter type: initial encounter Laterality: right Qualified Code(s): S93.04XA - Dislocation of right ankle joint, initial encounter Code(s): S93.06XA - Dislocation of unspecified ankle joint, initial encounter Classification: Present on IRF Admission, IRF Tx That Should Address Diagnosis, Diagnosis Requiring Medical Follow Up (2) Tibia/fibula fracture Status: Acute Qualifiers: Encounter type: initial encounter Fracture type: closed Laterality: right Qualified Code(s): S82.201A - Unspecified fracture of shaft of right tibia, initial encounter for closed fracture; S82.401A - Unspecified fracture of shaft of right fibula, initial encounter for closed fracture; S82.401A - Unspecified fracture of shaft of right fibula, initial encounter for closed fracture Code(s): S82.209A - Unspecified fracture of shaft of unspecified tibia, initial encounter for closed fracture; S82.409A - Unspecified fracture of shaft of unspecified fibula, initial encounter for closed fracture Classification: Present on IRF Admission, IRF Tx That Should Address Diagnosis, Diagnosis Requiring Medical Follow Up - Prior Functional Status Lives With: Alone Residence Type: Apartment/Private Home Assitive Devices: None Prior Functional Status: Indep. at home or school, Indep. w/ all home ADL, Indep. w/ IADL, Pain-Free - Current Functional Status Current Level of Function: Currently the patient is modified independent for eating, minimal assistance for toileting, bed/chair/wheelchair transfers, toilet transfers. She is total assistance for walking. She is walking with a rolling walker 10 feet. She is unable to do stairs. Failed Alternative Therapy: Arrived from Acute Care Patient Requirements: The patient requires oversight by rehabilitation physician to manage their rehabilitation treatment plan and multidisciplinary approach to care that can only be provided in an IRF and requires a multidisciplinary approach to care, provided by professional PTs, OTs, or STs, or dieticians, or RTs, as well as rehabilitation nurses and is not available in lesser levels of care. Limitations Req: Mobility Impairment, ADL Impairment Physical Therapy Minutes: 90 Occupational Therapy Minutes: 90 Therapy: The patient is to receive therapy at least 5 days a week. - Complications/Comorbidities Impact on Functional Outcomes: pain from the recent dislocation and fracture and repair will a barrier and have an impact on functional outcomes. Barriers to Discharge: Weakness, Balance, Endurance, Pain Control - Plan to Avoid Complications Plan to Avoid Complications: The patient cannot receive this care in a lesser intensive setting such as Alf or Outpatient Therapy due to the patient requiring the following : close 24 hour rehabilitation nursing monitoring of pain/pain management, avoidance of constipation and monitoring for wound infection.
[2017-04-13] MEDS: DiphenhydrAMINE 25 MG CAPSULE PO PRN (22:01)
[2017-04-13] MEDS: OXYCODONE/APAP 7.5 MG/325 MG TABLET PO PRN (22:01)
[2017-04-13] MEDS: TRAZODONE 100 MG TABLET PO SCH (22:02)
[2017-04-13] MEDS: ASPIRIN *EC* 81 MG TABLET PO SCH (22:03)
[2017-04-14] MEDS: OXYCODONE/APAP 7.5 MG/325 MG TABLET PO PRN ×4 (02:06→14:40)
[2017-04-14] MEDS: DiphenhydrAMINE 25 MG CAPSULE PO PRN ×3 (06:19→22:22)
[2017-04-14] MEDS: FERROUS SULFATE 324 MG TABLET PO SCH (09:19)
[2017-04-14] MEDS: OXCARBAZEPINE 150 MG TABLET PO SCH ×2 (09:19→12:26)
[2017-04-14] MEDS: PROPRANOLOL 20 MG TABLET PO SCH ×3 (09:20→12:27)
[2017-04-14] MEDS: MULTI-VITAMIN + MINERAL TABLET PO SCH (09:21)
[2017-04-14] MEDS: AMPHETAMINE/DEXTROAMPHETAMINE 10 MG TABLET PO SCH ×2 (09:21→12:26)
[2017-04-14] MEDS: BuPROPion XL 150mg (24HR) TABLET PO SCH (09:22)
[2017-04-14] MEDS: CETIRIZINE 10 MG TABLET PO SCH (09:22)
[2017-04-14] MEDS: SERTRALINE 100 MG TABLET PO SCH (09:22)
[2017-04-14] MEDS: ASPIRIN *EC* 81 MG TABLET PO SCH ×2 (09:23→22:21)
[2017-04-14] MEDS: POLYETHYL GLYCOL 3350 17gm PACKET PO SCH (09:29)
[2017-04-14] MEDS: ENOXAPARIN 40 MG/0.4 ML INJECTION SQ SCH (10:25)
--- NOTE | 2017-04-14 10:36 | Consult Note ---
<MicahMalgorzata D - Last Filed: 04/14/17 16:59> Consult Information - Data of Consult Consult date: 04/14/17 Requesting Physician: Donato Fong MD Primary Care Provider: Radha Payne APRN Family Provider: Radha Payne APRN - Consult Narrative History of present illness: Jaqueline Lomeli is a 57-year-old woman who lost her balance and fell on and suffered a fracture dislocation of her right ankle alongside a left ankle sprain. She underwent ORIF of the right distal fibula and the posterior malleolus tibial fracture by Dr. Rey on 04/08/17. Postoperatively, she had some mild complications including intermittent nocturnal hypoxia and a periodic, mild macular rash above the surgical site on her right leg. She was discharged to IRU on 04/13/17. Jaqueline was seen while getting ready for the day on 04/14/17. Her pain is severe at times and is her primary concern. She last took a pain pill and hour and a half ago, and feels like she needs another one. She is feeling dizzy and lightheaded, and feels like it could be because of pain or narcotic side effect. She also complains of intense itching to her right lower extremity and now has a worsening rash. She has been inserting a shoe horn down under her cast and itch around the incision site. She is also quite concerned about her breathing at night, stating that she was needing oxygen occasionally while she was hospitalized on the acute side. She reports that she had a sleep study done by her primary care physician a couple years ago, but nothing came of it. She denies any chest pain, PND, exertional dyspnea, or leg swelling. She denies any syncope, though feels like she might pass out because of pain at times. She denies any abdominal pain, nausea, vomiting, diarrhea, constipation. Her bowels actually are moving quite well. Her appetite is stable. She denies any recent illnesses, fevers, chills, cough or congestion. She has been urinating well without any dysuria or urinary frequency. PFSH GERD Recovering alcoholic Migraine headaches - propranolol available but has not used Obesity, BMI 39.4 Surgical History: 1. Cholecystectomy. 2. Partial hysterectomy without BSO. 3. T&A. 4. Right ankle open reduction internal fixation 04/08/17 - Dr. Rey Family History: Mother: COPD, breast cancer - Social History Smoking status: Former smoker (quit smoking at age 44) Packs per day: 1 Packs-years: 21 Substance use type: does not use Alcohol intake: former (quit drinking in 1994) Household members: none ( 3 years ago - cancer) Current occupational status: employed Current occupation: substance abuse counselor Current residence: Apartment/Private Home Review of Systems - Constitutional Constitutional: Absent: chills, fever(s) - EENMT Eyes: Present: requires corrective lenses Nose: Absent: obstruction Mouth/Throat: Absent: sore throat, changes in swallowing - Cardiovascular Cardiovascular: Absent: chest pain, palpitations Vascular: Absent: pedal edema - Respiratory Respiratory: Absent: cough, dyspnea - Gastrointestinal Gastrointestinal: Absent: abdominal pain, constipation, diarrhea, nausea, vomiting - Musculoskeletal Musculoskeletal: Present: as per HPI - Integumentary/Breasts Integumentary: Present: as per HPI - Neurological Neurological: Present: dizziness. Absent: confusion - Psychiatric Psychiatric: Present: depression - Endocrine Endocrine: Absent: palpitations - Hematologic/Lymphatic Hematologic/Lymphatic: Absent: easy bruising - Allergic/Immunologic Allergic/Immunologic: Present: urticaria (secondary to Hydrocodone) Medications Home Medications Medication Instructions Recorded Confirmed Type Cholecalciferol (Vitamin D3) 10,000 unit PO DAILY #0 09/27/15 04/07/17 History [Vitamin D3] Vitamin B Complex 1 tab PO DAILY #0 09/27/15 04/07/17 History Propranolol HCl 40 mg PO BIDBL #0 07/30/16 04/07/17 History Albuterol Sulfate [Proair Hfa] 1 puff INH Q4H PRN 04/02/17 04/07/17 History BuPROPion XL [Wellbutrin Xl] 150 mg PO DAILY 04/02/17 04/07/17 History Cetirizine [Zyrtec] 10 mg PO DAILY 04/02/17 04/07/17 History Ferrous Sulfate [Iron] 325 mg PO DAILY 04/02/17 04/07/17 History Fluticasone Nasal [place] [Flonase] 1 spray EA NOSTRIL DAILY PRN 04/02/17 History Ibuprofen [Advil] 200 mg PO Q4H PRN 04/02/17 04/07/17 History Multivitamin/Iron/Folic Acid 1 tab PO DAILY 04/02/17 04/07/17 History [Centrum Women Tablet] OXcarbazepine [Trileptal] 150 mg PO BIDBL 04/02/17 04/07/17 History Rizatriptan [Maxalt 5 mg] 5 mg PO DAILY PRN 04/02/17 04/07/17 History Sertraline [Zoloft] 200 mg PO DAILY 04/02/17 04/07/17 History Trazodone [Desyrel] 200 mg PO HS 04/02/17 04/07/17 History Vitamin E 1 tab PO DAILY 04/02/17 04/07/17 History Allergies Allergy/AdvReac Type Severity Reaction Status Date / Time codeine Allergy Unknown Verified 04/07/17 12:24 hydrocodone Allergy Unknown Nausea Verified 04/07/17 13:29 Potatoes Allergy Unknown Verified 04/07/17 13:29 tomato Allergy Unknown Verified 04/07/17 12:24 topiramate Allergy Unknown Verified 04/07/17 12:24 Exam Vital Signs: Temperature 97.8 F 04/14/17 09:11 Pulse Rate 62 04/14/17 09:11 Respiratory Rate 14 04/14/17 09:11 Blood Pressure 105/54 04/14/17 09:11 Pulse Oximetry 94 04/14/17 09:11 Height/Weight/BMI: Height 1.65 m Weight 107.5 kg Body Mass Index 39.4 - Constitutional Present: no acute distress, well nourished, well developed, obese - Routine HEENT Exam Head: Present: normocephalic Eye: Present: PERRL. Absent: conjunctival icterus ENT: Present: mucous membranes moist, oropharynx clear - Routine Neck Exam Present: supple - Routine Respiratory Exam Present: CTA bilaterally - Routine Cardiovascular Exam Present: RRR, S1, S2 - Routine Abdominal Exam Present: soft, normoactive bowel sounds, non distended, non tender - Routine Extremities Exam Present: edema (right foot) Comments: Posterior slab Splint to right lower extremity, air splint to left ankle - Routine Skin Exam Present: warm, rash (proximal to splint on right leg, papular and pruritic with evidence of excoriation) Comments: after splint was removed the papular rash was evident under the splint. Her incision was covered with xeroform; no local erythema or drainage. - Routine Neurological Exam Present: alert, oriented X3, CN II-XII intact - Routine Psychiatric Exam Present: normal affect, normal thought process, cooperative Results - Labs CBC & Chem 7: 04/14/17 05:20 04/14/17 05:20 Assessment and Plan (1) Ankle dislocation Current visit: No Status: Acute (2) Tibia/fibula fracture Current visit: Yes Status: Acute Resuscitation Status: Full Code Assessment and Plan: Assessment Status post ORIF right tib-fib fracture on 04/08/17 Normocytic anemia GERD Recovering alcoholic Migraine headaches - propranolol available but has not used Obesity, BMI 39.4 Plan We'll monitor continuous pulse oximetry with patient's concerns and recent brief periods of nocturnal hypoxia. She is at risk for sleep apnea given her central obesity. Discussed significant itching to Right lower extremity with Dr. Rey. He recommends to remove the splint and cover the incision with 4 x 4 and Kerlix and to hold PT until he can come in place a new splint. Labs reviewed: Mild normocytic anemia with hemoglobin of 11.3. Chemistries show a mildly elevated CO2 at 34, which has increased from her acute stay - repeat in am. Pain control per attending. Thank you for this consult, we will follow along with you during her IRU course. Hospital Course Summary Disclaimer: The visit summary below is not to be considered part of the above Progress Note. Hospital Course: 04/14/17 Assessment Status post ORIF right tib-fib fracture on 04/08/17 Normocytic anemia GERD Recovering alcoholic Migraine headaches - propranolol available but has not used Obesity, BMI 39.4 Plan We'll monitor continuous pulse oximetry with patient's concerns and recent brief periods of nocturnal hypoxia. She is at risk for sleep apnea given her central obesity. Discussed significant itching to Right lower extremity with Dr. Rey. He recommends to remove the splint and cover the incision with 4 x 4 and Kerlix and to hold PT until he can come in place a new splint. Labs reviewed: Mild normocytic anemia with hemoglobin of 11.3. Chemistries show a mildly elevated CO2 at 34, which has increased from her acute stay - repeat in am. Pain control per attending. Thank you for this consult, we will follow along with you during her IRU course. <Sharon Starkey Last Filed: 04/14/17 19:48> Consult Information - Data of Consult Requesting Physician: Donato Fong MD Primary Care Provider: Radha Payne APRN Family Provider: Radha Payne APRN Exam Vital Signs: Temperature 97.7 F 04/14/17 16:46 Pulse Rate 83 04/14/17 16:46 Respiratory Rate 16 04/14/17 16:46 Blood Pressure 139/62 04/14/17 16:46 Pulse Oximetry 94 04/14/17 09:11 Height/Weight/BMI: Height 1.65 m Weight 107.5 kg Body Mass Index 39.4 Results - Labs CBC & Chem 7: 04/14/17 05:20 04/14/17 05:20 Assessment and Plan (1) Ankle dislocation Current visit: No Status: Acute (2) Tibia/fibula fracture Current visit: Yes Status: Acute Assessment and Plan: I have independently evaluated and examined this patient. I reviewed the chart, the patient's history, and the LAY OUT WORKER/PA's documented findings as above. We discussed and formulated the assessment and plan as above with additions as below: Mrs. Lomeli is 57-year-old female who was transferred to rehabilitation after surgical stabilization of right tib-fib fracture 6 days ago. She is nonambulatory on the right foot and has limited ability to weight-bear on the left due to left ankle sprain. Left ankle is in an air splint. Patient expresses concern about nocturnal hypoxia and reports having had a prior sleep study (?overnight oximetry at home) which was abnormal that she reports that she never had any follow-up and was told that it was the "wrong study". She required supplemental oxygen last night. Her primary complaint is throbbing pain and that pain medicines last only 2 hours. She denies dyspnea and reports that bowel function is adequate. Examination revealed reveals patient to be alert. Respirations are nonlabored with good airflow, and clear breath sounds. Cardiac rhythm is regular, abdomen is obese and soft. There is mild erythema over the right askew and distal askew and ankle are wrapped. Cam Walker was open while nursing was applying hydrocortisone to her rash. Left ankle is in an air splint. Labs reviewed-HCO2 34 and hemoglobin 11.3 initial right ankle x-ray reviewed by myself demonstrating fracture dislocation of the distal tibia with fibular fracture. Switched from scheduled Percocet to scheduled OxyIR due to Tylenol limits. I am concerned that pain management is going to be problematic irrespective of what is tried. Will recheck overnight oximetry due to reported hypoxia last night and potential for obstructive sleep apnea. Will discuss implications of study with patient when results available. Oxygen when necessary. Hospital Course Summary Disclaimer: The visit summary below is not to be considered part of the above Progress Note.
[2017-04-14] MEDS ORDERED: OXYCODONE/APAP 7.5 MG/325 MG TABLET PO SCH (18:00)
[2017-04-14] MEDS: HYDROCORTISONE 1% CREAM 28.35gm TOP PRN (18:20)
[2017-04-14] MEDS: RIZATRIPTAN 5 MG TABLET PO PRN (18:45)
[2017-04-14] MEDS: TRAZODONE 100 MG TABLET PO SCH (22:21)
[2017-04-14] MEDS: Oxycodone *IR* 15 MG TABLET PO SCH (22:21)
[2017-04-14] MEDS: Oxycodone *IR* 5 MG TABLET PO SCH (22:22)
[2017-04-15] MEDS ORDERED: OXYCODONE/APAP 7.5 MG/325 MG TABLET PO PRN
[2017-04-15] MEDS: Oxycodone *IR* 15 MG TABLET PO SCH ×6 (02:26→22:19)
[2017-04-15] MEDS: Oxycodone *IR* 5 MG TABLET PO SCH ×6 (02:27→22:19)
--- NOTE | 2017-04-15 08:39 | XRay Report ---
Indication: ankle pain, follow up PROCEDURE: XR ankle RT min 3V: Encounter: Initial Comparison: Radiographs dated April 07, 2017 and fluoroscopy dated April 08, 2017 Findings: Internally fixed fibular fracture with a lateral side plate and multiple screws. No evidence of hardware failure. No visible change in alignment. Small possible loose body in the medial aspect of the ankle mortise. Impression: Stable alignment of the internally fixed fibular fracture. .
[2017-04-15] MEDS: SERTRALINE 100 MG TABLET PO SCH (09:38)
[2017-04-15] MEDS: MULTI-VITAMIN + MINERAL TABLET PO SCH (09:38)
[2017-04-15] MEDS: FERROUS SULFATE 324 MG TABLET PO SCH (09:38)
[2017-04-15] MEDS: BuPROPion XL 150mg (24HR) TABLET PO SCH (09:38)
[2017-04-15] MEDS: OXCARBAZEPINE 150 MG TABLET PO SCH ×2 (09:39→12:18)
[2017-04-15] MEDS: CETIRIZINE 10 MG TABLET PO SCH (09:39)
[2017-04-15] MEDS: PROPRANOLOL 20 MG TABLET PO SCH ×2 (09:39→12:44)
[2017-04-15] MEDS: AMPHETAMINE/DEXTROAMPHETAMINE 10 MG TABLET PO SCH ×2 (09:40→12:18)
[2017-04-15] MEDS: ASPIRIN *EC* 81 MG TABLET PO SCH ×2 (09:40→21:16)
[2017-04-15] MEDS: ENOXAPARIN 40 MG/0.4 ML INJECTION SQ SCH (09:41)
[2017-04-15] MEDS: HYDROCORTISONE 1% CREAM 28.35gm TOP PRN ×2 (09:42→18:28)
[2017-04-15] MEDS: POLYETHYL GLYCOL 3350 17gm PACKET PO SCH (09:44)
--- NOTE | 2017-04-15 11:08 | IRU Progress Note ---
- Subjective/Serverity of Illness Ms. Lomeli states that the brace on the right lower extremity was getting tighter and tighter and she apparently removed it herself during the night. She has had significant problems with pain control. She was taking 1 or 2 Percocet every 4 hours and one of this on a scheduled basis. Hospitalist service did change this to long-acting which is very appropriate. Continues to report discomfort in the leg even while lying still. She says that the left ankle hurts only when she is up and about. Dr. Rey has seen the patient. He is planning to come back in place a cast on the right lower extremity. It is mandatory that she not bear weight etc. at the present time until this heals. She was advised of this today. She states that her appetite is reasonably good. She has had no nausea no vomiting. Denies any abdominal pain. We are holding therapy at the present time. Update on medical issues: 1. Anemia at 10.7: Continues to have a low-grade anemia around 11. We will assess iron studies in this regard. 2. At risk for DVT/PE: She remains on Lovenox. She denies dyspnea or chest pains at present. Her lungs are clear. 3. At risk for uncontrolled pain: She has very difficulty with pain management at present. She did remove the brace on her own. Dr. Rey plans to place a cast at this point later this morning. Therapy will be held. She is on long-acting OxyContin. 4. At risk for constipation with possible obstruction: Did have a bowel movement. However with narcotic usage and immobility she is at risk for constipation. Exam Vital Signs: Temperature 97.2 F 04/15/17 08:00 Pulse Rate 67 04/15/17 08:00 Respiratory Rate 8 L 04/15/17 08:00 Blood Pressure 105/46 04/15/17 08:00 Pulse Oximetry 98 04/15/17 08:00 Height/Weight/BMI: Height 1.65 m Weight 107.5 kg Body Mass Index 39.4 Comments: The patient is awake, alert and oriented. States that she is having ongoing pain even lying still. Her rash has resolved on the right lower extremity. Pupils are equal. The neck is supple. Chest: Clear to auscultation bilaterally. Cor: RR with no gallop, click nor murmur Abd: soft with normo-active bowel sounds. There are no masses, no tenderness and no guarding. Extremities: Right lower extremity does not have the brace on at present. However the ankle is wrapped with gauze. I did not remove that at present. Minimal edema. Left ankle continues to have the ankle brace. Results IRU - Labs Labs: Hemoglobin noted to be 11. IRU A/P (1) Ankle dislocation Qualifiers: Encounter type: initial encounter Laterality: right Qualified Code(s): S93.04XA - Dislocation of right ankle joint, initial encounter Current visit: No Status: Acute Patient reports discomfort in the ankle. She remove the brace herself. Dr. Rey has evaluated and plans to place a cast. Pain medications were adjusted. (2) Tibia/fibula fracture Qualifiers: Encounter type: initial encounter Fracture type: closed Laterality: right Qualified Code(s): S82.201A - Unspecified fracture of shaft of right tibia, initial encounter for closed fracture; S82.401A - Unspecified fracture of shaft of right fibula, initial encounter for closed fracture; S82.401A - Unspecified fracture of shaft of right fibula, initial encounter for closed fracture Current visit: Yes Status: Acute (3) Anemia Qualifiers: Anemia type: unspecified type Qualified Code(s): D64.9 - Anemia, unspecified Current visit: Yes Status: Acute Hemoglobin has remained a bit low. We will assess iron studies in this regard. DVT Prophylaxis: SCD's, Lovenox Resuscitation Status: Full Code - Course Hospital Course: Donato Fong MD: 04/15/17 11:11 Pain control has been an issue. She is now on long-acting OxyContin. She took off her own brace from the right lower extremity. Dr. Rey is aware. He plans to place a cast. She states that her appetite is good. She denies nausea or vomiting. Therapy will be held until after the cast is placed. - Interventions to Obtain Goals PT Treatment Plan: Balance/Proprioception, Functional Activities, Gait Training , Patient/Family Education, Therapeutic Exercise OT Treatment Plan: ADL (Basic Care), Balance Training, IADL, Pt./Family Education, Ther. Exercise for ADL Goals Progress/Modifications: Time spent with patient and on floor reviewing data and documentin min Barriers to dismissal: Pain management, balance, endurance Medical decision-making: Reviewed pain management situation. In addition we will check iron studies in view of the anemia which could simply be acute from the fracture. However it is remained a bit low and we will assess his for more long-term iron deficiency. Please note that the patient's individual plan of care was developed and documented today, requiring review of therapy notes, medical conditions and anticipated functional recovery. This required additional medical decision making with regard to interaction of the patient's medical issues with the anticipated functional recovery. Please see separate document
--- NOTE | 2017-04-15 11:15 | IRU Plan of Care ---
[facility] Overall Plan of Care - Date Date: 04/15/17 - Patient Impairments (1) Ankle dislocation Qualifiers: Encounter type: initial encounter Laterality: right Qualified Code(s): S93.04XA - Dislocation of right ankle joint, initial encounter Code(s): S93.06XA - Dislocation of unspecified ankle joint, initial encounter Status: Acute Classification: Present on IRF Admission, IRF Tx That Should Address Diagnosis, Diagnosis Requiring Medical Follow Up (2) Tibia/fibula fracture Qualifiers: Encounter type: initial encounter Fracture type: closed Laterality: right Qualified Code(s): S82.201A - Unspecified fracture of shaft of right tibia, initial encounter for closed fracture; S82.401A - Unspecified fracture of shaft of right fibula, initial encounter for closed fracture; S82.401A - Unspecified fracture of shaft of right fibula, initial encounter for closed fracture Code(s): S82.209A - Unspecified fracture of shaft of unspecified tibia, initial encounter for closed fracture; S82.409A - Unspecified fracture of shaft of unspecified fibula, initial encounter for closed fracture Status: Acute Classification: Present on IRF Admission, IRF Tx That Should Address Diagnosis, Diagnosis Requiring Medical Follow Up (3) Anemia Qualifiers: Anemia type: unspecified type Qualified Code(s): D64.9 - Anemia, unspecified Code(s): D64.9 - Anemia, unspecified Status: Acute Classification: Present on IRF Admission, IRF Tx That Should Address Diagnosis, Diagnosis Requiring Medical Follow Up - Relevant Changes Relevant Changes: No Reviewed: I have reviewed the patient's information and concur with the finding and results of the pre-admission screen. Certification: I certify the patient for rehabilitation. - Medical Prognosis Medical Prognosis: Good Vital Signs: Last Vital Signs Temp 97.2 F 04/15/17 08:00 Pulse 67 04/15/17 08:00 Resp 8 L 04/15/17 08:00 BP 105/46 04/15/17 08:00 Pulse Ox 98 04/15/17 08:00 - Anticipated Interventions Anticipated Interventions: The patient requires inpatient IRF care for PT, OT, and/or ST for residuals remaining from right ankle dislocation and tibia and fibula fracture resulting in muscular weakness and strength deficits. - Current Functional Status Failed Alternative Therapy: Arrived from Acute Care Patient Requires: The patient requires oversight by rehabilitation physician to manage their rehabilitation treatment plan and multidisciplinary approach to care that can only be provided in an IRF and requires a multidisciplinary approach to care, provided by professional PTs, OTs,rehabilitation nurses and is not available in lesser levels of care. Physical Therapy Minutes: 90 Occupational Therapy Minutes: 90 Therapy: The patient is to receive therapy at least 5 days a week. - Anticipated LOS/Outcomes Anticipated Functional Outcome: Is anticipated the patient will be able to return to her home with modified independent level of functioning for transfers and ambulation. Anticipated DC Destination: Home, Self Care, Home Health Service Home Safety Plan: The patient will be provided with the development of a Home Safety Plan for return to a home or home-like environment and and to ensure safety post discharge. - Plan to Avoid Complications Barriers to Attaining Goals: Weakness, Endurance, Pain Control Plan to Avoid Complications: The patient cannot receive this care in a lesser intensive setting such as Long-Term or Outpatient Therapy due to the patient requiring the following : Close monitoring to observe for surgical site infection, pulmonary most, DVT as well as pain management. .
[2017-04-15] MEDS: DiphenhydrAMINE 25 MG CAPSULE PO PRN (18:26)
[2017-04-15] MEDS: TRAZODONE 100 MG TABLET PO SCH (21:16)
[2017-04-16] MEDS: Oxycodone *IR* 15 MG TABLET PO SCH ×5 (02:11→17:57)
[2017-04-16] MEDS: Oxycodone *IR* 5 MG TABLET PO SCH ×5 (02:11→17:58)
[2017-04-16] MEDS: RIZATRIPTAN 5 MG TABLET PO PRN (08:30)
[2017-04-16] MEDS: FERROUS SULFATE 324 MG TABLET PO SCH (08:31)
[2017-04-16] MEDS: ASPIRIN *EC* 81 MG TABLET PO SCH ×2 (08:32→21:34)
[2017-04-16] MEDS: ENOXAPARIN 40 MG/0.4 ML INJECTION SQ SCH (08:33)
[2017-04-16] MEDS: BuPROPion XL 150mg (24HR) TABLET PO SCH (08:33)
[2017-04-16] MEDS: MULTI-VITAMIN + MINERAL TABLET PO SCH (08:33)
[2017-04-16] MEDS: CETIRIZINE 10 MG TABLET PO SCH (08:33)
[2017-04-16] MEDS: SERTRALINE 100 MG TABLET PO SCH (08:33)
[2017-04-16] MEDS: POLYETHYL GLYCOL 3350 17gm PACKET PO SCH (08:33)
[2017-04-16] MEDS: OXCARBAZEPINE 150 MG TABLET PO SCH ×2 (08:34→12:13)
[2017-04-16] MEDS: AMPHETAMINE/DEXTROAMPHETAMINE 10 MG TABLET PO SCH ×2 (08:57→12:13)
[2017-04-16] MEDS: PROPRANOLOL 20 MG TABLET PO SCH ×3 (11:29→12:17)
[2017-04-16] MEDS: HYDROCORTISONE 1% CREAM 28.35gm TOP PRN (14:18)
--- NOTE | 2017-04-16 18:40 | Progress Note ---
Subjective: Jaqueline reports that she's somewhat congested and think she is getting a cold. She denied nausea but her appetite is diminished. Bowel function is good. She denied palpitations and is very frustrated with continued use of telemetry. Occasional hypoxia is reported-especially in the evening and nursing report need for supplemental oxygen intermittently. Objective Vital signs: Temperature 97.5 F 04/16/17 15:27 Pulse Rate 78 04/16/17 15:27 Respiratory Rate 16 04/16/17 15:27 Blood Pressure 106/68 04/16/17 15:27 Pulse Oximetry 97 04/16/17 18:11 NAD, alert Conjunctiva clear, sclera anicteric Respirations nonlabored, diminished breath sounds, no wheezing, breath sounds clear Regular rhythm Abdomen soft, nontender No edema right toes, leg externally rotated but elevated Height/Weight/BMI: Height 1.65 m Weight 107.5 kg Body Mass Index 39.4 Results - Labs CBC & Chem 7: 04/14/17 05:20 04/15/17 07:03 Assessment and Plan (1) Ankle dislocation Current visit: No Status: Acute (2) Tibia/fibula fracture Current visit: Yes Status: Acute Resuscitation Status: Full Code Assessment and Plan: Assessment Status post ORIF right tib-fib fracture on 04/08/17 Normocytic anemia GERD Recovering alcoholic Migraine headaches - propranolol available but has not used Obesity, BMI 39.4 Nocturnal hypoxemia Plan Overnight oximetry obtained 2 days ago-study reviewed. O2 sat less than 89% for 1 hour and 1 minute and patient started on 2 L O2 per RT. Has required oxygen intermittently at night. Continuous oximetry probe is not working well and patient is frustrated by telemetry. I don't see any need to continue oximetry especially given patient report of prior oximetry with nocturnal hypoxia. Will initiate nocturnal oxygen at 2 L, patient advise she will likely need sleep study after discharge and that it's unlikely we'll be able to discharge home with oxygen. Continuous oximetry/telemetry discontinued. Patient requests resumption of home beta agonist-Ventolin when necessary. Ordered. Less preoccupied on pain at present. Hospital Course Summary Disclaimer: The visit summary below is not to be considered part of the above Progress Note. Hospital Course: 04/14/17 Assessment Status post ORIF right tib-fib fracture on 04/08/17 Normocytic anemia GERD Recovering alcoholic Migraine headaches - propranolol available but has not used Obesity, BMI 39.4 Plan We'll monitor continuous pulse oximetry with patient's concerns and recent brief periods of nocturnal hypoxia. She is at risk for sleep apnea given her central obesity. Discussed significant itching to Right lower extremity with Dr. Rey. He recommends to remove the splint and cover the incision with 4 x 4 and Kerlix and to hold PT until he can come in place a new splint. Labs reviewed: Mild normocytic anemia with hemoglobin of 11.3. Chemistries show a mildly elevated CO2 at 34, which has increased from her acute stay - repeat in am. Pain control per attending. Thank you for this consult, we will follow along with you during her IRU course.
[2017-04-16] MEDS: TRAZODONE 100 MG TABLET PO SCH (21:34)
[2017-04-17] MEDS: Oxycodone *IR* 15 MG TABLET PO SCH ×7 (01:45→21:44)
[2017-04-17] MEDS: Oxycodone *IR* 5 MG TABLET PO SCH ×7 (01:53→21:44)
[2017-04-17] MEDS: OXCARBAZEPINE 150 MG TABLET PO SCH ×2 (08:55→12:24)
[2017-04-17] MEDS: FERROUS SULFATE 324 MG TABLET PO SCH (08:55)
[2017-04-17] MEDS: SERTRALINE 100 MG TABLET PO SCH (08:56)
[2017-04-17] MEDS: MULTI-VITAMIN + MINERAL TABLET PO SCH (08:56)
[2017-04-17] MEDS: AMPHETAMINE/DEXTROAMPHETAMINE 10 MG TABLET PO SCH ×2 (08:56→12:25)
[2017-04-17] MEDS: CETIRIZINE 10 MG TABLET PO SCH (08:56)
[2017-04-17] MEDS: BuPROPion XL 150mg (24HR) TABLET PO SCH (08:56)
[2017-04-17] MEDS: POLYETHYL GLYCOL 3350 17gm PACKET PO SCH (08:56)
[2017-04-17] MEDS: ASPIRIN *EC* 81 MG TABLET PO SCH ×2 (08:56→21:44)
[2017-04-17] MEDS: ENOXAPARIN 40 MG/0.4 ML INJECTION SQ SCH (08:57)
[2017-04-17] MEDS: PROPRANOLOL 20 MG TABLET PO SCH ×2 (11:45→14:21)
[2017-04-17] MEDS: ACETAMINOPHEN 325 MG TABLET PO PRN (12:25)
[2017-04-17] MEDS: MAG-AL + SIM ORAL LIQUID 30ml PO PRN (20:14)
[2017-04-17] MEDS: TRAZODONE 100 MG TABLET PO SCH (21:44)
[2017-04-17] MEDS: RIZATRIPTAN 5 MG TABLET PO PRN (23:58)
[2017-04-18] MEDS: ACETAMINOPHEN 325 MG TABLET PO PRN (00:24)
[2017-04-18] MEDS: Oxycodone *IR* 15 MG TABLET PO SCH ×6 (02:03→21:58)
[2017-04-18] MEDS: Oxycodone *IR* 5 MG TABLET PO SCH ×6 (02:03→21:59)
[2017-04-18] MEDS ORDERED: MENTHOL COUGH DROPS (RICOLA) MM PRN (08:34)
[2017-04-18] MEDS ORDERED: BISACODYL 10 MG SUPPOSITORY RECTALLY PRN (08:53)
--- NOTE | 2017-04-18 08:54 | Progress Note ---
Subjective: Jaqueline is still complaining of severe b/l ankle pain. She also has a dry mouth , sore throat, sinus drainage, productive cough, and subjective fever with chills. She hasn't had an appetite and c/o mild nausea this am. She feels dizzy and lightheaded. The cast on her right leg isn't causing as much itching as the splint was before and her rash is fading. Objective Vital signs: Temperature 98.6 F 04/18/17 00:00 Pulse Rate 100 04/18/17 00:00 Respiratory Rate 16 04/18/17 00:00 Blood Pressure 131/56 04/18/17 00:00 Pulse Oximetry 100 04/18/17 00:00 Height/Weight/BMI: Height 1.65 m Weight 107.5 kg Body Mass Index 39.4 - Constitutional Present: no acute distress, well nourished, well developed - Routine HEENT Exam Head: Present: normocephalic ENT: Present: mucous membranes dry - Routine Respiratory Exam Present: CTA bilaterally - Routine Cardiovascular Exam Present: RRR, S1, S2 - Routine Abdominal Exam Present: soft, non tender, distended (mild). Absent: normoactive bowel sounds ( hypoactive) - Routine Extremities Exam Comments: cast to RLE; air cast to LLE - Routine Musculoskeletal Exam Musculoskeletal: Present: limited range of motion - Routine Skin Exam Present: intact, dry, warm, rash (papular rash to right leg is fading) - Routine Neurological Exam Present: alert, oriented X3 - Routine Psychiatric Exam Present: normal affect, cooperative Results - Labs CBC & Chem 7: 04/14/17 05:20 04/15/17 07:03 Assessment and Plan (1) Tibia/fibula fracture Current visit: Yes Status: Acute (2) Ankle dislocation Current visit: No Status: Acute DVT Prophylaxis: Lovenox Resuscitation Status: Full Code Assessment and Plan: Assessment Status post ORIF right tib-fib fracture on 04/08/17 Constipation Normocytic anemia GERD Recovering alcoholic Migraine headaches - propranolol available but has not used Obesity, BMI 39.4 Nocturnal hypoxemia Plan Check CXR d/t cough. Add cough drops and acapella. Increase fluticasone nasal spray. Hx >20 pack year smoking hx; will DC PRN neb albuterol and try duoneb. Lightheaded/dizzy, subjective f/c - check CBC and BMP. Encourage fluids. Nausea, constipation - increase MiraLAX to BID; schedule SennaPlus (was PRN); add dulcolax supp. PRN. MOM PRN. PT/OT and pain control per attending. Hospital Course Summary Disclaimer: The visit summary below is not to be considered part of the above Progress Note. Hospital Course: 04/14/17 Assessment Status post ORIF right tib-fib fracture on 04/08/17 Normocytic anemia GERD Recovering alcoholic Migraine headaches - propranolol available but has not used Obesity, BMI 39.4 Plan We'll monitor continuous pulse oximetry with patient's concerns and recent brief periods of nocturnal hypoxia. She is at risk for sleep apnea given her central obesity. Discussed significant itching to Right lower extremity with Dr. Rey. He recommends to remove the splint and cover the incision with 4 x 4 and Kerlix and to hold PT until he can come in place a new splint. Labs reviewed: Mild normocytic anemia with hemoglobin of 11.3. Chemistries show a mildly elevated CO2 at 34, which has increased from her acute stay Pain control per attending. 04/18/17 Check CXR d/t cough. Add cough drops and acapella. Increase fluticasone nasal spray. Hx >20 pack year smoking hx; will DC PRN neb albuterol and try duoneb. Lightheaded/dizzy, subjective f/c - check CBC and BMP. Encourage fluids. Nausea, constipation - increase MiraLAX to BID; schedule SennaPlus (was PRN); add dulcolax supp. PRN. MOM PRN. PT/OT and pain control per attending.
[2017-04-18] MEDS: MULTI-VITAMIN + MINERAL TABLET PO SCH (09:05)
[2017-04-18] MEDS: AMPHETAMINE/DEXTROAMPHETAMINE 10 MG TABLET PO SCH ×2 (09:05→12:46)
[2017-04-18] MEDS: BuPROPion XL 150mg (24HR) TABLET PO SCH (09:05)
[2017-04-18] MEDS: FERROUS SULFATE 324 MG TABLET PO SCH (09:05)
[2017-04-18] MEDS: OXCARBAZEPINE 150 MG TABLET PO SCH ×2 (09:05→12:45)
[2017-04-18] MEDS: ASPIRIN *EC* 81 MG TABLET PO SCH ×2 (09:05→20:08)
[2017-04-18] MEDS: CETIRIZINE 10 MG TABLET PO SCH (09:06)
[2017-04-18] MEDS: POLYETHYL GLYCOL 3350 17gm PACKET PO SCH ×2 (09:06→20:09)
[2017-04-18] MEDS: SERTRALINE 100 MG TABLET PO SCH (09:06)
[2017-04-18] MEDS: SENNA + DOCUSATE TABLET PO SCH ×2 (09:07→20:08)
[2017-04-18] MEDS: PROPRANOLOL 20 MG TABLET PO SCH ×2 (10:13→12:55)
[2017-04-18] MEDS: FLUTICASONE NASAL SPRAY 50mcg EA NOSTRIL SCH (10:15)
--- NOTE | 2017-04-18 10:53 | IRU Progress Note ---
- Subjective/Serverity of Illness Parsons is frustrated and fatigued. She reports severe pain in the right ankle as well as the left ankle. She finds it difficult to participate with therapy. I have reviewed therapy notes as well. She has pain as well as nausea. She is very tired she states. Has not been sleeping well at night. Has been declining therapy. Continues to struggle with constipation. She would like a Nicorette chewing gum and this will be provided. She wondered when the pain would go away. However he could be several weeks. She remains on oxycodone IR at a dose of 20 mg every 4 hours on a fairly routine basis. Update on medical issues: 1. Anemia at 10.7: Hemoglobin has normalized. Iron studies are normal. 2. At risk for DVT/PE: She remains on Lovenox. No evidence of pulmonary embolus. No evidence of acute blood loss. 3. At risk for uncontrolled pain: Continues to struggle with pain management. She is allergic to codeine, hydrocodone and I believe morphine. She is on immediate acting oxycodone 20 mg every 4 hours. We discussed her pain situation. We told her that it is normal for her to have pain. I did tell her that it would not last forever however. 4. At risk for constipation with possible obstruction: Continues to struggle with sluggishness of stools. Exam Vital Signs: Temperature 98.6 F 04/18/17 08:00 Pulse Rate 133 H 04/18/17 08:00 Respiratory Rate 16 04/18/17 08:00 Blood Pressure 131/56 04/18/17 08:00 Pulse Oximetry 100 04/18/17 08:00 Height/Weight/BMI: Height 1.65 m Weight 107.5 kg Body Mass Index 39.4 Comments: The patient is awake, alert and oriented and in moderate painful distress. She is frustrated and complains of multiple things: pain, not sleeping, nausea. Pupils are equal. The neck is supple. Chest: Clear to auscultation bilaterally. Cor: RR with no gallop, click nor murmur Abd: soft with normo-active bowel sounds. There are no masses, no tenderness and no guarding. Extremities: Right lower leg in a cast. Foot/toes exposed look fine. Results IRU - Labs Labs: Reviewed iron studies which are normal. Hemoglobin has normalized. IRU A/P (1) Ankle dislocation Qualifiers: Encounter type: initial encounter Laterality: right Qualified Code(s): S93.04XA - Dislocation of right ankle joint, initial encounter Current visit: No Status: Acute Continues to have pain in the right ankle. It has been stabilized surgically but she is in a cast. (2) Tibia/fibula fracture Qualifiers: Encounter type: initial encounter Fracture type: closed Laterality: right Qualified Code(s): S82.201A - Unspecified fracture of shaft of right tibia, initial encounter for closed fracture; S82.401A - Unspecified fracture of shaft of right fibula, initial encounter for closed fracture; S82.401A - Unspecified fracture of shaft of right fibula, initial encounter for closed fracture Current visit: Yes Status: Acute (3) Anemia Qualifiers: Anemia type: unspecified type Qualified Code(s): D64.9 - Anemia, unspecified Current visit: Yes Status: Chronic Her anemia has resolved. DVT Prophylaxis: Lovenox Resuscitation Status: Full Code - Course Hospital Course: Donato Fong MD: 04/15/17 11:11 Pain control has been an issue. She is now on long-acting OxyContin. She took off her own brace from the right lower extremity. Dr. Rey is aware. He plans to place a cast. She states that her appetite is good. She denies nausea or vomiting. Therapy will be held until after the cast is placed. 04/18/17 10:55 She has declined therapy on several occasions. Complains of pain in both ankles as anticipated. She is on routine use of high potency narcotics. She requests Nicorette chewing gum. I'm uncertain why this is needed because her last cigarette was reportedly over 10 years ago. - Interventions to Obtain Goals PT Treatment Plan: Balance/Proprioception, Functional Activities, Gait Training , Patient/Family Education, Therapeutic Exercise OT Treatment Plan: ADL (Basic Care), Balance Training, IADL, Pt./Family Education, Ther. Exercise for ADL Goals Progress/Modifications: Time spent with patient and on floor reviewing data and documentin min Barriers to dismissal: Pain, safety with transfers, ability to ambulate., Endurance Medical decision-making: Spent quite a bit of time with the patient today discussing her pain management situation as well as multiple other issues including her nausea and difficulty sleeping. She is allergic to several narcotic pain medicines. She is on potent oxycodone 20 mg every 4 hours at the present time. I told her that is normal for her to have discomfort in the ankles in view of the severe injury that she sustained. I think that her nausea as well as her dry mouth, dry throat and constipation may all be related to the narcotic usage as well. We will have a team meeting this noon to discuss her situation further. [place] is poor however.
[2017-04-18] MEDS: ENOXAPARIN 40 MG/0.4 ML INJECTION SQ SCH (11:30)
--- NOTE | 2017-04-18 13:43 | IRU Team Meeting ---
IRU Team Meeting - Nursing Vital Signs: Vital Signs - 24 hr 04/17/17 16:00 04/18/17 00:00 04/18/17 08:00 Temperature 97.4 F 98.6 F 98.6 F Pulse Rate 85 100 133 H Respiratory Rate 12 16 16 Blood Pressure 114/69 131/56 131/56 Pulse Oximetry 98 100 100 Current Medications: Acetaminophen (Tylenol) 650 mg PO Q5H PRN PRN Reason: Discomfort Last Admin: 04/18/17 00:24 Dose: 650 mg Al Hydroxide/Mg Hydroxide (Maalox Plus) 30 ml PO Q6H PRN PRN Reason: Indigestion Last Admin: 04/17/17 20:14 Dose: 30 ml Albuterol Sulfate (Ventolin Hfa) 2 puff ORAL INH Q4HR PRN Albuterol/Ipratropium (Duoneb) 3 ml AEROSOL RTQID PRN Amphetamine/Dextroamphetamine (Adderall) 30 mg PO QAM [facility] Last Admin: 04/18/17 09:05 Dose: 30 mg Amphetamine/Dextroamphetamine (Adderall) 10 mg PO NOON [facility] Last Admin: 04/18/17 12:46 Dose: 10 mg Aspirin (Ecotrin) 81 mg PO BID [facility] Last Admin: 04/18/17 09:05 Dose: 81 mg Bisacodyl (Dulcolax) 10 mg RECTALLY DAILY PRN PRN Reason: Constipation Bupropion HCl (Wellbutrin Xl) 150 mg PO DAILY [facility] Last Admin: 04/18/17 09:05 Dose: 150 mg Cetirizine HCl (Zyrtec) 10 mg PO DAILY [facility] Last Admin: 04/18/17 09:06 Dose: 10 mg Diphenhydramine HCl (Benadryl) 25 mg PO Q6H PRN PRN Reason: Itching Last Admin: 04/15/17 18:26 Dose: 25 mg Enoxaparin Sodium (Lovenox) 40 mg SQ DAILY [facility] Last Admin: 04/18/17 11:30 Dose: 40 mg Ferrous Sulfate (Feosol) 324 mg PO WB [facility] Last Admin: 04/18/17 09:05 Dose: 324 mg Fluticasone Propionate (Flonase) 2 spray EA NOSTRIL DAILY [facility] Last Admin: 04/18/17 10:15 Dose: 2 spray Hydrocortisone (Cortizone-10 Cream) 1 applic TOP TID PRN Last Admin: 04/16/17 14:18 Dose: 1 applic Lorazepam (Ativan Inj) 0.5 - 1 mg IVP Q6H PRN Magnesium Hydroxide (Mom) 30 ml PO DAILY PRN PRN Reason: Constipation Last Admin: 04/16/17 13:40 Dose: 30 ml Menthol (Ricola Sf) 1 lozenge MM PRN PRN PRN Reason: Cough Multivitamins/Minerals (Therapeutic - M) 1 tab PO DAILY [facility] Last Admin: 04/18/17 09:05 Dose: 1 tab Nicotine Polacrilex (Nicorette) 2 mg BC Q1H PRN PRN Reason: Cessation/Smoking/Tobacco use Last Admin: 04/18/17 12:47 Dose: 2 mg Ondansetron HCl (Zofran) 4 mg IVP Q6H PRN PRN Reason: Nausea &/or vomiting [facility] Last Admin: 04/18/17 12:45 Dose: 150 mg Oxycodone HCl (Roxicodone *Ir*) 15 mg PO Q4H [facility] Last Admin: 04/18/17 10:15 Dose: 15 mg Oxycodone HCl (Roxicodone *Ir*) 5 mg PO Q4H [facility] Last Admin: 04/18/17 10:15 Dose: 5 mg Oxycodone/Acetaminophen (Percocet 7.5/325) 1 - 2 tab PO Q4H PRN PRN Reason: Pain Polyethylene Glycol (Miralax) 17 gm PO BID [facility] Last Admin: 04/18/17 09:06 Dose: 17 gm Propranolol HCl ([facility]al) [facility] Last Admin: 04/18/17 12:55 Dose: Not Given Rizatriptan Benzoate (Maxalt 5 Mg) 5 - 10 mg PO Q2H PRN PRN Reason: Migraine headache Last Admin: 04/17/17 23:58 Dose: 10 mg Senna/Docusate Sodium (Senna Plus Tablet) 1 tab PO BID [facility] Last Admin: 04/18/17 09:07 Dose: 1 tab Sertraline HCl (Zoloft) 200 mg PO DAILY [facility] Last Admin: 04/18/17 09:06 Dose: 200 mg Sodium Chloride (Iv Flush) 10 ml IV PRN PRN PRN Reason: Flushing Trazodone HCl (Desyrel) 200 mg PO HS [facility] Last Admin: 04/17/17 21:44 Dose: 200 mg Current Medical Issues: Pain control, unable to get adequate sleep at night, recent fracture and dislocation of right ankle, constipation, anemia Comments: I certify that I personally led the interdisciplinary team meeting and agree with comments, barriers and goals indicated. Team meeting was held in the patient's room with the patient and the following family members present: Patient alone. Patient requested and was started on Nicorette chewing gum today as needed. Bowels are sluggish. She is on MiraLAX daily. She is receiving oxycodone immediate release 20 mg every 4 hours [id number]. She complains of difficulty resting and sleeping at night. She says that she is being interrupted too much. We recommend limiting interruptions to maximum of 2-3 times per night in order to give her pain medications and assess her. She agrees to this plan. She does complain of dry mouth and some difficulty swallowing. She can swallow liquids without difficulty. She was eating fairly well until the weekend at which time she developed reduced appetite. She is now on a mighty shake supplement and doing better in that regard. Her hemoglobin has been stable. - Dietary Appetite has been reduced. Complains of dry mouth and dry throat which may be related to her use of narcotic pain medication. She is on mighty shake supplements and is tolerating this well. - Physical Therapy Comments: She has declined physical therapy and occupational therapy on several occasions due to excessive fatigue. She states that she cannot participate if she does not get adequate sleep at night. With regard to physical therapy, she is maximal assistance of 1 person for bed/chair/wheelchair transfers. She is total assistance of 1 person for ambulating some 36 feet. She is able to self propel in a wheelchair 203 feet. Stair climbing is not possible at this time due to the patient being unsafe and unable to do that. Car transfer ability is minimal assistance of one person. - Occupational Therapy Comments: Again she has declined to participate with occupational therapy on several occasions due to not getting enough sleep at night she states. She currently is modified independent functioning for eating, standby assistance to supervision level for grooming, upper and lower body dressing, bathing and toileting assistance. She is contact-guard assistance for toilet transfer assistance. She is unable and unsafe to do toe transfers at this time. - Goals Goals: 1. Hospital staff will be advised to interrupt the patient not more than 2 times per night if at all possible unless her safety is compromised. This is to allow her to get better sleep. 2. Patient to demonstrate transfers to toilet with modified independent functioning. 3. Patient to demonstrate toileting tasks with modified independent functioning. 3. Standby assistance with slide board transfers. - Barriers to Discharge Barriers to Attaining Goals: Pain Control, Other (safety, weightbearing status, home set up, participation and strength.) - Care Plan Anticipated DC Destination: Home, Self Care I have led this team conference and agree with the plan. Anticipated Length of Stay (days): 7
--- NOTE | 2017-04-18 14:41 | XRay Report ---
Indication: cough, chills XR chest 2V: Comparison: 04/04/2015 Technique: Single portable sitting upright chest Findings: Patient showed normal heart, mediastinum and central vascularity. Lungs show just slight interstitial prominence similar to the previous study. Overlying the anterior aspect of the right second rib is a subtle area of potential increased density which is better delineated on the current study. No additional pulmonary findings. No acute bony abnormality. Impression: 1. No definitive acute cardiopulmonary findings. A subtle questionable hazy density in the right upper lobe overlying the right anterior second rib. Follow-up in three months suggested to reassess stability. Should the area persists then perhaps some additional workup such as Lordotic views or more aggressive workup may be worthwhile. .
[2017-04-18] MEDS: TRAZODONE 100 MG TABLET PO SCH (20:08)
[2017-04-19] MEDS: Oxycodone *IR* 15 MG TABLET PO SCH ×6 (01:53→21:23)
[2017-04-19] MEDS: Oxycodone *IR* 5 MG TABLET PO SCH ×6 (01:53→21:24)
[2017-04-19] MEDS: ALBUTEROL/IPRATROPIUM 2.5mg-0.5mg/3ml NEB AEROSOL PRN ×2 (02:09→04:41)
[2017-04-19] MEDS: MAG-AL + SIM ORAL LIQUID 30ml PO PRN (04:44)
[2017-04-19] MEDS: RIZATRIPTAN 5 MG TABLET PO PRN (07:47)
[2017-04-19] MEDS: OXCARBAZEPINE 150 MG TABLET PO SCH ×2 (09:29→12:26)
[2017-04-19] MEDS: AMPHETAMINE/DEXTROAMPHETAMINE 10 MG TABLET PO SCH ×2 (09:29→12:28)
[2017-04-19] MEDS: SENNA + DOCUSATE TABLET PO SCH ×2 (09:29→21:22)
[2017-04-19] MEDS: FERROUS SULFATE 324 MG TABLET PO SCH (09:30)
[2017-04-19] MEDS: SERTRALINE 100 MG TABLET PO SCH (09:30)
[2017-04-19] MEDS: ASPIRIN *EC* 81 MG TABLET PO SCH ×2 (09:30→21:22)
[2017-04-19] MEDS: CETIRIZINE 10 MG TABLET PO SCH (09:30)
[2017-04-19] MEDS: BuPROPion XL 150mg (24HR) TABLET PO SCH (09:30)
[2017-04-19] MEDS: MULTI-VITAMIN + MINERAL TABLET PO SCH (09:30)
[2017-04-19] MEDS: PROPRANOLOL 20 MG TABLET PO SCH ×2 (09:31→13:31)
[2017-04-19] MEDS: ENOXAPARIN 40 MG/0.4 ML INJECTION SQ SCH (09:31)
[2017-04-19] MEDS: POLYETHYL GLYCOL 3350 17gm PACKET PO SCH ×2 (09:32→21:23)
[2017-04-19] MEDS: FLUTICASONE NASAL SPRAY 50mcg EA NOSTRIL SCH (10:22)
--- NOTE | 2017-04-19 11:02 | IRU Progress Note ---
- Subjective/Serverity of Illness Parsons was assessed in her room today. She is tearful. She is frustrated. She has several concerns with regard to pain management. Unfortunately she is allergic to several medications. She is already receiving fairly high doses of oxycodone immediate release. She states that the ankle hurts quite a bit. It is better if it is elevated. Exam of the exposed distal foot shows no abnormalities. She has good color and no evidence of edema. She does not sleep well at night. She states last night it was her fault. She states she is very tired and finds it difficult to participate with therapy because of fatigue and inadequate rest at night. She did have some shortness of breath and coughing last night. She was given a breathing treatment and this seemed to help quite a bit. Denies any sputum. Her appetite remains poor. She is having bowel movements however. She has had no nausea no vomiting she states. Exam Vital Signs: Temperature 98.0 F 04/19/17 08:44 Pulse Rate 96 04/19/17 08:44 Respiratory Rate 16 04/19/17 08:44 Blood Pressure 108/51 04/19/17 08:44 Pulse Oximetry 96 04/19/17 08:44 Height/Weight/BMI: Height 1.65 m Weight 107.5 kg Body Mass Index 39.4 Comments: The patient is awake, alert and oriented and in no acute distress. However she is tearful. Has several concerns which she related to me. Pupils are equal. The neck is supple. Chest: Clear to auscultation bilaterally. Occasional headaches of expiratory wheeze bilaterally. Somewhat diminished breath sounds are noted. Cor: RR with no gallop, click nor murmur Abd: soft with normo-active bowel sounds. There are no masses, no tenderness and no guarding. Extremities: No edema is noted. The exposed foot on the right side is unremarkable. Remains in a cast in the right lower extremity and a brace in the left lower extremity. IRU A/P (1) Ankle dislocation Qualifiers: Encounter type: initial encounter Laterality: right Qualified Code(s): S93.04XA - Dislocation of right ankle joint, initial encounter Current visit: No Status: Acute Continues to have discomfort in both ankles right worse than left. Participation in therapy is limited due to fatigue and pain she states. (2) Tibia/fibula fracture Qualifiers: Encounter type: initial encounter Fracture type: closed Laterality: right Qualified Code(s): S82.201A - Unspecified fracture of shaft of right tibia, initial encounter for closed fracture; S82.401A - Unspecified fracture of shaft of right fibula, initial encounter for closed fracture; S82.401A - Unspecified fracture of shaft of right fibula, initial encounter for closed fracture Current visit: Yes Status: Acute (3) Anemia Qualifiers: Anemia type: unspecified type Qualified Code(s): D64.9 - Anemia, unspecified Current visit: Yes Status: Chronic Hemoglobin is stable. Denies any lightheadedness. DVT Prophylaxis: Lovenox Resuscitation Status: Full Code - Course Hospital Course: Donato Fong MD: 04/15/17 11:11 Pain control has been an issue. She is now on long-acting OxyContin. She took off her own brace from the right lower extremity. Dr. Rey is aware. He plans to place a cast. She states that her appetite is good. She denies nausea or vomiting. Therapy will be held until after the cast is placed. 04/18/17 10:55 She has declined therapy on several occasions. Complains of pain in both ankles as anticipated. She is on routine use of high potency narcotics. She requests Nicorette chewing gum. I'm uncertain why this is needed because her last cigarette was reportedly over 10 years ago. 04/19/17 11:01 Progress is slow with regard to therapy. She states that she finds it difficult to participate due to fatigue and lack of sleep at night. Complains of significant pain. She is getting oxycodone IR every 4 hours around- the-clock. We discussed timing of this to give it prior to shower. Reports of shortness of breath last night relieved with breathing treatment. Appetite remains poor. - Interventions to Obtain Goals PT Treatment Plan: Balance/Proprioception, Functional Activities, Gait Training , Patient/Family Education, Therapeutic Exercise OT Treatment Plan: ADL (Basic Care), Balance Training, IADL, Pt./Family Education, Ther. Exercise for ADL Goals Progress/Modifications: Time spent with patient and on floor reviewing data and documentin min Barriers to dismissal: Pain in ankles, fatigue, endurance Medical decision-making: Spent quite a bit of time with her today discussing her concerns. We discussed the importance of participation with therapy. Discussed her pain management schedule. She is already on fairly maximal doses of the oxycodone. She is having bowel movements. Her appetite is poor likely related to the pain medication. We discussed her shortness of breath which seem to be relieved by the use of a breathing treatment last night. Not short of breath this morning.
[2017-04-19] MEDS: TRAZODONE 100 MG TABLET PO SCH (21:22)
[2017-04-20] MEDS: MAG-AL + SIM ORAL LIQUID 30ml PO PRN ×2 (01:05→10:15)
[2017-04-20] MEDS: Oxycodone *IR* 15 MG TABLET PO SCH ×6 (01:10→23:09)
[2017-04-20] MEDS: Oxycodone *IR* 5 MG TABLET PO SCH ×6 (01:11→23:11)
[2017-04-20] MEDS: FERROUS SULFATE 324 MG TABLET PO SCH (09:09)
[2017-04-20] MEDS: ASPIRIN *EC* 81 MG TABLET PO SCH ×2 (09:10→21:21)
[2017-04-20] MEDS: PROPRANOLOL 20 MG TABLET PO SCH ×2 (09:10→12:44)
[2017-04-20] MEDS: MULTI-VITAMIN + MINERAL TABLET PO SCH (09:10)
[2017-04-20] MEDS: SENNA + DOCUSATE TABLET PO SCH ×2 (09:11→21:20)
[2017-04-20] MEDS: SERTRALINE 100 MG TABLET PO SCH (09:11)
[2017-04-20] MEDS: CETIRIZINE 10 MG TABLET PO SCH (09:12)
[2017-04-20] MEDS: OXCARBAZEPINE 150 MG TABLET PO SCH ×2 (09:12→12:43)
[2017-04-20] MEDS: ENOXAPARIN 40 MG/0.4 ML INJECTION SQ SCH (09:12)
[2017-04-20] MEDS: AMPHETAMINE/DEXTROAMPHETAMINE 10 MG TABLET PO SCH ×2 (10:04→12:43)
[2017-04-20] MEDS: BuPROPion XL 150mg (24HR) TABLET PO SCH (10:05)
[2017-04-20] MEDS: POLYETHYL GLYCOL 3350 17gm PACKET PO SCH ×2 (10:05→21:20)
[2017-04-20] MEDS: FLUTICASONE NASAL SPRAY 50mcg EA NOSTRIL SCH (18:40)
[2017-04-20] MEDS: TRAZODONE 100 MG TABLET PO SCH (21:21)
[2017-04-21] MEDS: RIZATRIPTAN 5 MG TABLET PO PRN ×2 (02:12→16:08)
[2017-04-21] MEDS: Oxycodone *IR* 5 MG TABLET PO SCH ×6 (02:15→22:41)
[2017-04-21] MEDS: Oxycodone *IR* 15 MG TABLET PO SCH ×6 (02:20→22:41)
[2017-04-21] MEDS: ALBUTEROL/IPRATROPIUM 2.5mg-0.5mg/3ml NEB AEROSOL PRN (07:05)
[2017-04-21] MEDS: FERROUS SULFATE 324 MG TABLET PO SCH (08:54)
[2017-04-21] MEDS: OXCARBAZEPINE 150 MG TABLET PO SCH ×2 (08:54→11:50)
[2017-04-21] MEDS: ASPIRIN *EC* 81 MG TABLET PO SCH ×2 (08:56→21:02)
[2017-04-21] MEDS: AMPHETAMINE/DEXTROAMPHETAMINE 10 MG TABLET PO SCH ×2 (08:56→11:50)
[2017-04-21] MEDS: CETIRIZINE 10 MG TABLET PO SCH (08:57)
[2017-04-21] MEDS: MULTI-VITAMIN + MINERAL TABLET PO SCH (08:57)
[2017-04-21] MEDS: BuPROPion XL 150mg (24HR) TABLET PO SCH (08:57)
[2017-04-21] MEDS: SENNA + DOCUSATE TABLET PO SCH ×2 (08:57→21:02)
[2017-04-21] MEDS: FLUTICASONE NASAL SPRAY 50mcg EA NOSTRIL SCH (08:57)
[2017-04-21] MEDS: ENOXAPARIN 40 MG/0.4 ML INJECTION SQ SCH (08:57)
[2017-04-21] MEDS: POLYETHYL GLYCOL 3350 17gm PACKET PO SCH ×2 (08:58→21:04)
[2017-04-21] MEDS: PROPRANOLOL 20 MG TABLET PO SCH ×2 (09:04→11:50)
[2017-04-21] MEDS: SERTRALINE 100 MG TABLET PO SCH (09:15)
--- NOTE | 2017-04-21 11:56 | IRU Progress Note ---
- Subjective/Serverity of Illness Parsons was evaluated on the inpatient rehabilitation unit. She has several concerns which we discussed today. 1. She reports discomfort in the right shoulder ever since she fell at home. She requests an x-ray be obtained of the right shoulder. Exam indeed does reveal read decreased range of motion. Unable to abduct even to 90. She is also tender over the anterior before meals joint area. No edema is noted. Pulses are good. Strength appears to be adequate. We will x-ray this. This could be a rotator cuff injury but may not be related to the initial fall necessarily. 2. Pain medication: She volunteered that she is very worried that she will get addicted to her pain medications. She will stop the nighttime as needed medication and just use it during the daytime. I suggested reducing the dose of the oxycodone IR during the daytime. She declines at present. She was to continue the 20 mg every 4 hours in this regard. I told her I would be happy to work with her as she wishes but we would certainly like her to get down off the current dose prior to dismissal. 3. Anorexia, queasiness etc.: She reports her appetite is improved. She has no further nausea. Update on medical issues: 1. Anemia at 10.7: Iron studies are reviewed and are normal. Her hemoglobin is now normal at 12 g percent. 2. At risk for DVT/PE: She is tolerating Lovenox well. She denies any shortness of breath. Her lungs remain clear at the present time. Did have dyspnea previously but this was felt to be more bronchospasm in origin. 3. At risk for uncontrolled pain: See above discussion. I suggested reducing the every 4 hour oxycodone dose but she declines. She will plan to go throughout the night without pain medication at present. 4. At risk for constipation with possible obstruction: According the patient, her bowels are moving much better at the present time.. Exam Vital Signs: Temperature 98.1 F 04/21/17 07:21 Pulse Rate 65 04/21/17 07:21 Respiratory Rate 18 04/21/17 07:21 Blood Pressure 117/54 04/21/17 07:21 Pulse Oximetry 92 04/21/17 07:21 Height/Weight/BMI: Height 1.65 m Weight 106.1 kg Body Mass Index 39.4 Comments: The patient is awake, alert and oriented and in no acute distress. Pupils are equal. The neck is supple. Chest: Clear to auscultation bilaterally. Cor: RR with no gallop, click nor murmur She is walking with a knee scooter at present. Exam of the right shoulder shows reduced range of motion. She cannot abduct even up to 90. She is tender in the anterior before meals joint on the right. Strength is adequate. Extremities: No edema is noted. No cyanosis is present. . Results IRU - Labs Labs: Reviewed iron studies and other labs. IRU A/P (1) Ankle dislocation Qualifiers: Encounter type: initial encounter Laterality: right Qualified Code(s): S93.04XA - Dislocation of right ankle joint, initial encounter Current visit: No Status: Acute She is trying to reduce her pain medication intake. We will be happy to work with her but we would like her to get on less pain medication prior to dismissal. Reports that the cast is feeling a bit looser which may reflect reduced edema. (2) Tibia/fibula fracture Qualifiers: Encounter type: initial encounter Fracture type: closed Laterality: right Qualified Code(s): S82.201A - Unspecified fracture of shaft of right tibia, initial encounter for closed fracture; S82.401A - Unspecified fracture of shaft of right fibula, initial encounter for closed fracture; S82.401A - Unspecified fracture of shaft of right fibula, initial encounter for closed fracture Current visit: Yes Status: Acute (3) Anemia Qualifiers: Anemia type: unspecified type Qualified Code(s): D64.9 - Anemia, unspecified Current visit: Yes Status: Resolved Hemoglobin is stable and iron studies are normal. DVT Prophylaxis: Lovenox Resuscitation Status: Full Code - Course Hospital Course: Donato Fong MD: 04/15/17 11:11 Pain control has been an issue. She is now on long-acting OxyContin. She took off her own brace from the right lower extremity. Dr. Rey is aware. He plans to place a cast. She states that her appetite is good. She denies nausea or vomiting. Therapy will be held until after the cast is placed. 04/18/17 10:55 She has declined therapy on several occasions. Complains of pain in both ankles as anticipated. She is on routine use of high potency narcotics. She requests Nicorette chewing gum. I'm uncertain why this is needed because her last cigarette was reportedly over 10 years ago. 04/19/17 11:01 Progress is slow with regard to therapy. She states that she finds it difficult to participate due to fatigue and lack of sleep at night. Complains of significant pain. She is getting oxycodone IR every 4 hours around- the-clock. We discussed timing of this to give it prior to shower. Reports of shortness of breath last night relieved with breathing treatment. Appetite remains poor. 04/21/17 11:59 She reports that she is doing better in several areas including shortness of breath which we felt was related to bronchospasm. Has new pain right shoulder. States that this was sustained when she fell at home however. Has reduced range of motion right shoulder. We will x-ray per request. Bowels are moving better. Continues to be tearful and have variable degrees of participation. She is working better with occupational therapy and has better motivation but still requires a lot of encouragement. With physical therapy she is less enthusiastic at present. - Interventions to Obtain Goals PT Treatment Plan: Balance/Proprioception, Functional Activities, Gait Training , Patient/Family Education, Therapeutic Exercise OT Treatment Plan: ADL (Basic Care), Balance Training, IADL, Pt./Family Education, Ther. Exercise for ADL Goals Progress/Modifications: Time spent with patient and on floor reviewing data and documentin min Barriers to dismissal: Pain, motivation, participation, endurance Medical decision-making: We reassessed her pain management at present. Please see above discussion. She will not receive as needed medications during the night but will continue the current dosing the daytime. Recommend that she cut this back but she declines at present. She is concerned about becoming "addicted " and we told that we will be happy to work with her to decrease her intake. Also complains of right shoulder pain. She would like this x-ray. Does have reduced range of motion but also has tenderness over the anterior before meals joint. Could well be rotator cuff injury.
--- NOTE | 2017-04-21 13:34 | XRay Report ---
Indication: Pain in shoulder after fall at home PROCEDURE: XR shoulder RT 2-3 views: Encounter: Initial Comparison: July 07, 2014 Findings: There is no acute fracture, dislocation or malalignment identified. Mild acromioclavicular degenerative change. Impression: No acute osseous abnormality. .
[2017-04-21] MEDS: TRAZODONE 100 MG TABLET PO SCH (21:02)
[2017-04-22] MEDS: Oxycodone *IR* 5 MG TABLET PO SCH ×6 (04:09→22:20)
[2017-04-22] MEDS: Oxycodone *IR* 15 MG TABLET PO SCH ×6 (04:09→22:21)
[2017-04-22] MEDS: FLUTICASONE NASAL SPRAY 50mcg EA NOSTRIL SCH (08:42)
[2017-04-22] MEDS: ENOXAPARIN 40 MG/0.4 ML INJECTION SQ SCH (08:42)
[2017-04-22] MEDS: BuPROPion XL 150mg (24HR) TABLET PO SCH (08:43)
[2017-04-22] MEDS: MULTI-VITAMIN + MINERAL TABLET PO SCH (08:43)
[2017-04-22] MEDS: OXCARBAZEPINE 150 MG TABLET PO SCH ×2 (08:43→12:10)
[2017-04-22] MEDS: FERROUS SULFATE 324 MG TABLET PO SCH (08:43)
[2017-04-22] MEDS: SERTRALINE 100 MG TABLET PO SCH (08:44)
[2017-04-22] MEDS: PROPRANOLOL 20 MG TABLET PO SCH ×2 (08:44→11:56)
[2017-04-22] MEDS: ASPIRIN *EC* 81 MG TABLET PO SCH ×2 (08:44→20:41)
[2017-04-22] MEDS: SENNA + DOCUSATE TABLET PO SCH ×2 (08:45→20:41)
[2017-04-22] MEDS: POLYETHYL GLYCOL 3350 17gm PACKET PO SCH ×2 (08:45→22:19)
[2017-04-22] MEDS: CETIRIZINE 10 MG TABLET PO SCH (08:45)
[2017-04-22] MEDS: AMPHETAMINE/DEXTROAMPHETAMINE 10 MG TABLET PO SCH ×2 (08:53→12:10)
[2017-04-22] MEDS: MAG-AL + SIM ORAL LIQUID 30ml PO PRN (12:20)
--- NOTE | 2017-04-22 14:03 | IRU Progress Note ---
- Subjective/Serverity of Illness Parsons reports that she feels better. She does have discomfort in the right shoulder since the fall. Unable to abduct even to 90. Her plain radiograph of the shoulder was unremarkable for acute injury. I discussed this with occupational therapy and they will institute some modalities in terms of ultrasound and range of motion exercises. In addition, her anorexia is improved. She denies any shortness of breath. She was having difficulty breathing at night but that has improved. Bowels seem to be moving better. Review of therapy notes indicates that she is cooperative with therapy and progressing. There is concern about a wheelchair fitting into her apartment or home. Update on medical issues: 1. Anemia at 10.7: This seems to have resolved. 2. At risk for DVT/PE: She remains on Lovenox. No evidence of pulmonary embolus. No evidence of acute blood loss. 3. At risk for uncontrolled pain: Seems to be tolerating the current regimen. 4. At risk for constipation with possible obstruction: Bowels are moving better. Exam Vital Signs: Temperature 97.7 F 04/22/17 08:00 Pulse Rate 80 04/22/17 08:00 Respiratory Rate 18 04/22/17 08:00 Blood Pressure 124/51 04/22/17 08:00 Pulse Oximetry 100 04/22/17 08:00 Height/Weight/BMI: Height 1.65 m Weight 106.1 kg Body Mass Index 39.4 Comments: The patient is awake, alert and oriented and in no acute distress. Pupils are equal. The neck is supple. Chest: Clear to auscultation bilaterally. Cor: RR with no gallop, click nor murmur Abd: soft with normo-active bowel sounds. There are no masses, no tenderness and no guarding. Extremities: No edema is noted. Range of motion of right arm again assessed. Unable to abduct 90. Tender anterior before meals joint. Radiographs negative. Results IRU - Labs Labs: Laboratory reviewed. BMP unremarkable. Radiograph of right shoulder unremarkable. IRU A/P (1) Ankle dislocation Qualifiers: Encounter type: initial encounter Laterality: right Qualified Code(s): S93.04XA - Dislocation of right ankle joint, initial encounter Current visit: No Status: Acute She is tolerating the current therapy well and is cooperative today. Pain management is appropriate at this time. We will want to taper off if possible prior to dismissal. (2) Tibia/fibula fracture Qualifiers: Encounter type: initial encounter Fracture type: closed Laterality: right Qualified Code(s): S82.201A - Unspecified fracture of shaft of right tibia, initial encounter for closed fracture; S82.401A - Unspecified fracture of shaft of right fibula, initial encounter for closed fracture; S82.401A - Unspecified fracture of shaft of right fibula, initial encounter for closed fracture Current visit: Yes Status: Acute (3) Anemia Qualifiers: Anemia type: unspecified type Qualified Code(s): D64.9 - Anemia, unspecified Current visit: Yes Status: Resolved (4) Right shoulder pain Qualifiers: Chronicity: acute Qualified Code(s): M25.511 - Pain in right shoulder Current visit: Yes Status: Acute Has reduced range of motion of the right shoulder due to pain. Somewhat tender anterior before meals joint. We will ask occupational therapy to institute some modalities for range of motion and ultrasound. DVT Prophylaxis: Lovenox Resuscitation Status: Full Code - Course Hospital Course: Donato Fong MD: 04/15/17 11:11 Pain control has been an issue. She is now on long-acting OxyContin. She took off her own brace from the right lower extremity. Dr. Rey is aware. He plans to place a cast. She states that her appetite is good. She denies nausea or vomiting. Therapy will be held until after the cast is placed. 04/18/17 10:55 She has declined therapy on several occasions. Complains of pain in both ankles as anticipated. She is on routine use of high potency narcotics. She requests Nicorette chewing gum. I'm uncertain why this is needed because her last cigarette was reportedly over 10 years ago. 04/19/17 11:01 Progress is slow with regard to therapy. She states that she finds it difficult to participate due to fatigue and lack of sleep at night. Complains of significant pain. She is getting oxycodone IR every 4 hours around- the-clock. We discussed timing of this to give it prior to shower. Reports of shortness of breath last night relieved with breathing treatment. Appetite remains poor. 04/21/17 11:59 She reports that she is doing better in several areas including shortness of breath which we felt was related to bronchospasm. Has new pain right shoulder. States that this was sustained when she fell at home however. Has reduced range of motion right shoulder. We will x-ray per request. Bowels are moving better. Continues to be tearful and have variable degrees of participation. She is working better with occupational therapy and has better motivation but still requires a lot of encouragement. With physical therapy she is less enthusiastic at present. 04/22/17 14:06 She is more cooperative with therapy today. Bowels are moving better. Radiograph right shoulder negative. Occupational therapy to institute some modalities for pain relief and improved range of motion of right shoulder. - Interventions to Obtain Goals PT Treatment Plan: Balance/Proprioception, Functional Activities, Gait Training , Patient/Family Education, Therapeutic Exercise OT Treatment Plan: ADL (Basic Care), Balance Training, IADL, Pt./Family Education, Ther. Exercise for ADL Goals Progress/Modifications: Time spent with patient and on floor reviewing data and documentin min Barriers to dismissal: Participation, pain control Medical decision-making: Again reassess her right shoulder pain. I imagine this is rotator cuff injury although cannot rule out simply a ligamentous sprain or strain. We will start with conservative modalities in terms of ultrasound and range of motion. As nonpatient if it worsens we can pursue MRI etc. Discussed her progress with therapy. She is cooperative with therapy today.
[2017-04-22] MEDS: TRAZODONE 100 MG TABLET PO SCH (20:41)
[2017-04-22] MEDS: RIZATRIPTAN 5 MG TABLET PO PRN (20:43)
[2017-04-23] MEDS: Oxycodone *IR* 5 MG TABLET PO SCH ×5 (03:58→20:39)
[2017-04-23] MEDS: Oxycodone *IR* 15 MG TABLET PO SCH ×5 (03:58→20:39)
[2017-04-23] MEDS: RIZATRIPTAN 5 MG TABLET PO PRN (06:37)
[2017-04-23] MEDS: OXCARBAZEPINE 150 MG TABLET PO SCH ×2 (08:30→12:32)
[2017-04-23] MEDS: PROPRANOLOL 20 MG TABLET PO SCH ×2 (08:30→12:41)
[2017-04-23] MEDS: FERROUS SULFATE 324 MG TABLET PO SCH (08:30)
[2017-04-23] MEDS: CETIRIZINE 10 MG TABLET PO SCH (08:32)
[2017-04-23] MEDS: BuPROPion XL 150mg (24HR) TABLET PO SCH (08:32)
[2017-04-23] MEDS: FLUTICASONE NASAL SPRAY 50mcg EA NOSTRIL SCH (08:33)
[2017-04-23] MEDS: MULTI-VITAMIN + MINERAL TABLET PO SCH (08:33)
[2017-04-23] MEDS: ENOXAPARIN 40 MG/0.4 ML INJECTION SQ SCH (08:33)
[2017-04-23] MEDS: SENNA + DOCUSATE TABLET PO SCH ×2 (08:34→20:40)
[2017-04-23] MEDS: SERTRALINE 100 MG TABLET PO SCH (08:34)
[2017-04-23] MEDS: POLYETHYL GLYCOL 3350 17gm PACKET PO SCH ×2 (08:41→20:42)
[2017-04-23] MEDS: ASPIRIN *EC* 81 MG TABLET PO SCH ×2 (08:52→20:40)
[2017-04-23] MEDS: AMPHETAMINE/DEXTROAMPHETAMINE 10 MG TABLET PO SCH ×2 (08:52→12:31)
[2017-04-23] MEDS: MAG-AL + SIM ORAL LIQUID 30ml PO PRN (10:14)
[2017-04-23] MEDS: TRAZODONE 100 MG TABLET PO SCH (20:40)
[2017-04-24] MEDS: Oxycodone *IR* 5 MG TABLET PO SCH ×7 (02:03→21:09)
[2017-04-24] MEDS: Oxycodone *IR* 15 MG TABLET PO SCH ×7 (02:03→21:09)
[2017-04-24] MEDS: FERROUS SULFATE 324 MG TABLET PO SCH (09:06)
[2017-04-24] MEDS: BuPROPion XL 150mg (24HR) TABLET PO SCH (09:06)
[2017-04-24] MEDS: PROPRANOLOL 20 MG TABLET PO SCH ×2 (09:07→13:27)
[2017-04-24] MEDS: SERTRALINE 100 MG TABLET PO SCH (09:07)
[2017-04-24] MEDS: MULTI-VITAMIN + MINERAL TABLET PO SCH (09:07)
[2017-04-24] MEDS: ASPIRIN *EC* 81 MG TABLET PO SCH ×2 (09:07→21:09)
[2017-04-24] MEDS: AMPHETAMINE/DEXTROAMPHETAMINE 10 MG TABLET PO SCH ×2 (09:07→12:26)
[2017-04-24] MEDS: SENNA + DOCUSATE TABLET PO SCH (09:08)
[2017-04-24] MEDS: POLYETHYL GLYCOL 3350 17gm PACKET PO SCH ×2 (09:08→21:11)
[2017-04-24] MEDS: CETIRIZINE 10 MG TABLET PO SCH (09:09)
[2017-04-24] MEDS: ENOXAPARIN 40 MG/0.4 ML INJECTION SQ SCH (09:09)
[2017-04-24] MEDS: OXCARBAZEPINE 150 MG TABLET PO SCH ×2 (11:36→13:27)
[2017-04-24] MEDS: FLUTICASONE NASAL SPRAY 50mcg EA NOSTRIL SCH (12:26)
[2017-04-24] MEDS: METHYL SALICYLATE/MENTHOL OINT 28gm TP PRN (13:27)
[2017-04-24] MEDS ORDERED: SENNA + DOCUSATE TABLET PO PRN (14:48)
--- NOTE | 2017-04-24 14:48 | Progress Note ---
<MicahMalgorzata D - Last Filed: 04/24/17 14:44> - Date 04/24/17 Subjective: Jaqueline is doing well, except for right shoulder pain - this has been bothering since before the surgery. It feels much better after application of Icy Hot and use of a heating pad. She feels like therapy is going well but is enjoying her day off. She states that yesterday she accidently stepped onto her right foot, which caused increase in pain for the rest of the day, but her pain level is back to normal today. She states that she stopped taking Senna b/c she was having frequent bowel movements. Appetite is fair. No SOA or chest pain. Objective Vital signs: Temperature 97.7 F 04/24/17 08:04 Pulse Rate 64 04/24/17 08:04 Respiratory Rate 18 04/24/17 08:04 Blood Pressure 102/47 04/24/17 08:04 Pulse Oximetry 92 04/24/17 08:04 Height/Weight/BMI: Height 1.65 m Weight 106.1 kg Body Mass Index 39.4 - Constitutional Present: no acute distress, well nourished, well developed - Routine HEENT Exam Head: Present: normocephalic - Routine Respiratory Exam Present: CTA bilaterally - Routine Cardiovascular Exam Present: RRR, S1, S2 - Routine Abdominal Exam Present: soft, normoactive bowel sounds, non distended, non tender - Routine Extremities Exam Comments: air cast to left ankle; cast to right lower leg - Routine Musculoskeletal Exam Musculoskeletal: Present: limited range of motion - Routine Skin Exam Present: intact, dry, warm, rash (much improved to RLE) - Routine Neurological Exam Present: alert, oriented X3 - Routine Psychiatric Exam Present: normal affect, normal thought process, cooperative Results - Labs CBC & Chem 7: 04/18/17 09:31 04/22/17 09:36 Assessment and Plan (1) Tibia/fibula fracture Current visit: Yes Status: Acute (2) Ankle dislocation Current visit: No Status: Acute Resuscitation Status: Full Code Assessment and Plan: Assessment Status post ORIF right tib-fib fracture on 04/08/17 Constipation Normocytic anemia GERD Recovering alcoholic Migraine headaches - propranolol available but has not used Obesity, BMI 39.4 Nocturnal hypoxemia Plan Doing well. Icy Hot + heating pad helps keep right shoulder pain at bay. Change Senna Plus to PRN. Recent labs/UA - unremarkable. PT/OT and pain control per attending. Hospital Course Summary Disclaimer: The visit summary below is not to be considered part of the above Progress Note. Hospital Course: 04/14/17 Assessment Status post ORIF right tib-fib fracture on 04/08/17 Normocytic anemia GERD Recovering alcoholic Migraine headaches - propranolol available but has not used Obesity, BMI 39.4 Plan We'll monitor continuous pulse oximetry with patient's concerns and recent brief periods of nocturnal hypoxia. She is at risk for sleep apnea given her central obesity. Discussed significant itching to Right lower extremity with Dr. Rey. He recommends to remove the splint and cover the incision with 4 x 4 and Kerlix and to hold PT until he can come in place a new splint. Labs reviewed: Mild normocytic anemia with hemoglobin of 11.3. Chemistries show a mildly elevated CO2 at 34, which has increased from her acute stay Pain control per attending. 04/18/17 Check CXR d/t cough. Add cough drops and acapella. Increase fluticasone nasal spray. Hx >20 pack year smoking hx; will DC PRN neb albuterol and try duoneb. Lightheaded/dizzy, subjective f/c - check CBC and BMP. Encourage fluids. Nausea, constipation - increase MiraLAX to BID; schedule SennaPlus (was PRN); add dulcolax supp. PRN. MOM PRN. PT/OT and pain control per attending. 04/24/17 Doing well. Icy Hot + heating pad helps keep right shoulder pain at bay. Change Senna Plus to PRN. Recent labs/UA - unremarkable. <Batsheva Prieto - Last Filed: 04/24/17 18:36> - Date 04/24/17 Objective Vital signs: Temperature 97.8 F 04/24/17 15:42 Pulse Rate 70 04/24/17 15:42 Respiratory Rate 20 04/24/17 15:42 Blood Pressure 106/51 04/24/17 15:42 Pulse Oximetry 93 04/24/17 15:42 Height/Weight/BMI: Height 1.65 m Weight 106.1 kg Body Mass Index 39.4 Results - Labs CBC & Chem 7: 04/18/17 09:31 04/22/17 09:36 Assessment and Plan (1) Ankle dislocation Current visit: No Status: Acute (2) Tibia/fibula fracture Current visit: Yes Status: Acute Assessment and Plan: 04/24/2017-I reviewed this chart, the patient history, and the W[employer]OW DIS[employer] DES[employer]ER's/PA's documented findings as above. We discussed and formulated the assessment and plan as above with the additions below.-Dr Prieto The patient was seen in her room this evening after supper. She states she's feeling well. She denies any complaints. Her pain in her legs is improving. She had diarrhea yesterday and so today she refused her laxatives, which is reasonable. She denies any shortness of breath. She is eating and drinking well. On exam she is alert and in no acute distress. Chest is clear to auscultation. Cardiovascular reveals a regular rate and rhythm. Abdomen is soft and nontender. Left lower extremity is without edema. Right lower extremity is casted. Overall, the patient appears to be doing well. Continue with current treatment plan. Hospital Course Summary Disclaimer: The visit summary below is not to be considered part of the above Progress Note.
[2017-04-24] MEDS: ACETAMINOPHEN 325 MG TABLET PO PRN (16:10)
[2017-04-24] MEDS: TRAZODONE 100 MG TABLET PO SCH (21:08)
[2017-04-25] MEDS: Oxycodone *IR* 15 MG TABLET PO SCH ×3 (01:38→09:59)
[2017-04-25] MEDS: Oxycodone *IR* 5 MG TABLET PO SCH ×3 (01:38→09:59)
[2017-04-25] MEDS: ENOXAPARIN 40 MG/0.4 ML INJECTION SQ SCH (09:57)
[2017-04-25] MEDS: FLUTICASONE NASAL SPRAY 50mcg EA NOSTRIL SCH (09:57)
[2017-04-25] MEDS: SERTRALINE 100 MG TABLET PO SCH (09:58)
[2017-04-25] MEDS: ASPIRIN *EC* 81 MG TABLET PO SCH ×2 (09:58→21:30)
[2017-04-25] MEDS: BuPROPion XL 150mg (24HR) TABLET PO SCH (09:58)
[2017-04-25] MEDS: PROPRANOLOL 20 MG TABLET PO SCH ×2 (09:58→12:46)
[2017-04-25] MEDS: AMPHETAMINE/DEXTROAMPHETAMINE 10 MG TABLET PO SCH ×2 (09:58→12:46)
[2017-04-25] MEDS: CETIRIZINE 10 MG TABLET PO SCH (09:58)
[2017-04-25] MEDS: MULTI-VITAMIN + MINERAL TABLET PO SCH (09:58)
[2017-04-25] MEDS: FERROUS SULFATE 324 MG TABLET PO SCH (09:59)
[2017-04-25] MEDS: OXCARBAZEPINE 150 MG TABLET PO SCH ×2 (09:59→12:52)
[2017-04-25] MEDS: POLYETHYL GLYCOL 3350 17gm PACKET PO SCH (10:01)
--- NOTE | 2017-04-25 10:35 | IRU Progress Note ---
- Subjective/Serverity of Illness I evaluated Jaqueline in her room today. She is improving. She says that her outlook is better. Continues to have pain but is willing to Back on the oxycodone IR. Currently she is on 20 mg every 4 hours. I recommended that we cut back to 10 mg every 4 hours and she states that she is agreeable. She is having bowel movements. She states that she is resting better at night. She denies any chest pain or shortness of breath. She reports that her bowels are moving. Her vital signs remained stable. Exam Vital Signs: Temperature 97.6 F 04/24/17 21:58 Pulse Rate 76 04/24/17 21:58 Respiratory Rate 18 04/24/17 21:58 Blood Pressure 124/53 04/24/17 21:58 Pulse Oximetry 96 04/24/17 21:58 Height/Weight/BMI: Height 1.65 m Weight 106.1 kg Body Mass Index 39.4 Comments: The patient is awake, alert and oriented and in no acute distress. Pupils are equal. The neck is supple. Chest: Clear to auscultation bilaterally. Cor: RR with no gallop, click nor murmur Abd: soft with normo-active bowel sounds. There are no masses, no tenderness and no guarding. Extremities: No edema is noted. Inspected both lower extremities. Right distal foot which is exposed from the cast looks fine. No evidence of cyanosis. No edema present. Left lower extremity in a splint/brace. IRU A/P (1) Ankle dislocation Qualifiers: Encounter type: initial encounter Laterality: right Qualified Code(s): S93.04XA - Dislocation of right ankle joint, initial encounter Current visit: No Status: Acute Continues to have discomfort in both lower extremities. However she is going to Back on the oxycodone to 10 mg every 4 hours which we will do today. (2) Tibia/fibula fracture Qualifiers: Encounter type: initial encounter Fracture type: closed Laterality: right Qualified Code(s): S82.201A - Unspecified fracture of shaft of right tibia, initial encounter for closed fracture; S82.401A - Unspecified fracture of shaft of right fibula, initial encounter for closed fracture; S82.401A - Unspecified fracture of shaft of right fibula, initial encounter for closed fracture Current visit: Yes Status: Acute She continues to be cooperative with therapy and is making progress. Team meeting today to assess overall progress in view of interdisciplinary management. (3) Anemia Qualifiers: Anemia type: unspecified type Qualified Code(s): D64.9 - Anemia, unspecified Current visit: Yes Status: Resolved (4) Right shoulder pain Qualifiers: Chronicity: acute Qualified Code(s): M25.511 - Pain in right shoulder Current visit: Yes Status: Acute She reports that her right shoulder pain is much improved. Heating pad helps. Also icy hot has helped. DVT Prophylaxis: Lovenox Resuscitation Status: Full Code - Course Hospital Course: Donato Fong MD: 04/15/17 11:11 Pain control has been an issue. She is now on long-acting OxyContin. She took off her own brace from the right lower extremity. Dr. Rey is aware. He plans to place a cast. She states that her appetite is good. She denies nausea or vomiting. Therapy will be held until after the cast is placed. 04/18/17 10:55 She has declined therapy on several occasions. Complains of pain in both ankles as anticipated. She is on routine use of high potency narcotics. She requests Nicorette chewing gum. I'm uncertain why this is needed because her last cigarette was reportedly over 10 years ago. 04/19/17 11:01 Progress is slow with regard to therapy. She states that she finds it difficult to participate due to fatigue and lack of sleep at night. Complains of significant pain. She is getting oxycodone IR every 4 hours around- the-clock. We discussed timing of this to give it prior to shower. Reports of shortness of breath last night relieved with breathing treatment. Appetite remains poor. 04/21/17 11:59 She reports that she is doing better in several areas including shortness of breath which we felt was related to bronchospasm. Has new pain right shoulder. States that this was sustained when she fell at home however. Has reduced range of motion right shoulder. We will x-ray per request. Bowels are moving better. Continues to be tearful and have variable degrees of participation. She is working better with occupational therapy and has better motivation but still requires a lot of encouragement. With physical therapy she is less enthusiastic at present. 04/22/17 14:06 She is more cooperative with therapy today. Bowels are moving better. Radiograph right shoulder negative. Occupational therapy to institute some modalities for pain relief and improved range of motion of right shoulder. 04/25/17 10:35 Had a discussion with Jaqueline regarding the issue of pain management. She is agreeable to reducing the oxycodone IR to 10 mg every 4 hours. She is cooperative with therapy and making progress. Right shoulder is improved. - Interventions to Obtain Goals PT Treatment Plan: Balance/Proprioception, Functional Activities, Gait Training , Patient/Family Education, Therapeutic Exercise OT Treatment Plan: ADL (Basic Care), Balance Training, IADL, Pt./Family Education, Ther. Exercise for ADL Goals Progress/Modifications: Time spent with patient and on floor reviewing data and documentin min Barriers to dismissal: endurance, pain control Medical decision-making: No evidence of edema. We discussed her pain management. As noted, she is agreeable to cutting back on the oxycodone. She had asked me last week to tell her when it was safe to do that I think that is the case at present. In addition, her right shoulder is improved with the use of local modalities. Team meeting this noon to assess interdisciplinary plan. .
--- NOTE | 2017-04-25 13:27 | Progress Note ---
Progress Note: Please see previous progress note this same date. Jaqueline had a severely dislocated right ankle as well as a tibia/fibula fracture on the same side. This was repaired surgically. She is nonweightbearing on that side until released by the orthopedist, Dr. Rey. In addition she has a severe sprain involving the left ankle and is wearing a brace on that side. For this reason the patient will require a wheelchair at home in order to perform her activities of daily living. She can safely operate a manual wheelchair and has good strength in the upper extremities.
--- NOTE | 2017-04-25 13:31 | IRU Team Meeting ---
IRU Team Meeting - Nursing Vital Signs: Vital Signs - 24 hr 04/24/17 15:42 04/24/17 21:58 04/25/17 10:43 Temperature 97.8 F 97.6 F 97.8 F Pulse Rate 70 76 81 Respiratory Rate 20 18 21 Blood Pressure 106/51 124/53 120/56 Pulse Oximetry 93 96 97 Current Medications: Acetaminophen (Tylenol) 650 mg PO Q5H PRN PRN Reason: Discomfort Last Admin: 04/24/17 16:10 Dose: 650 mg Al Hydroxide/Mg Hydroxide (Maalox Plus) 30 ml PO Q6H PRN PRN Reason: Indigestion Last Admin: 04/23/17 10:14 Dose: 30 ml Albuterol Sulfate (Ventolin Hfa) 2 puff ORAL INH Q4HR PRN Albuterol/Ipratropium (Duoneb) 3 ml AEROSOL RTQID PRN Last Admin: 04/21/17 07:05 Dose: 3 ml Amphetamine/Dextroamphetamine (Adderall) 30 mg PO QAM [facility] Last Admin: 04/25/17 09:58 Dose: 30 mg Amphetamine/Dextroamphetamine (Adderall) 10 mg PO NOON [facility] Last Admin: 04/25/17 12:46 Dose: 10 mg Aspirin (Ecotrin) 81 mg PO BID [facility] Last Admin: 04/25/17 09:58 Dose: 81 mg Bisacodyl (Dulcolax) 10 mg RECTALLY DAILY PRN PRN Reason: Constipation Bupropion HCl (Wellbutrin Xl) 150 mg PO DAILY [facility] Last Admin: 04/25/17 09:58 Dose: 150 mg Cetirizine HCl (Zyrtec) 10 mg PO DAILY [facility] Last Admin: 04/25/17 09:58 Dose: 10 mg Diphenhydramine HCl (Benadryl) 25 mg PO Q6H PRN PRN Reason: Itching Last Admin: 04/15/17 18:26 Dose: 25 mg Enoxaparin Sodium (Lovenox) 40 mg SQ DAILY [facility] Last Admin: 04/25/17 09:57 Dose: 40 mg Ferrous Sulfate (Feosol) 324 mg PO WB [facility] Last Admin: 04/25/17 09:59 Dose: 324 mg Fluticasone Propionate (Flonase) 2 spray EA NOSTRIL DAILY [facility] Last Admin: 04/25/17 09:57 Dose: 2 spray Hydrocortisone (Cortizone-10 Cream) 1 applic TOP TID PRN Last Admin: 04/16/17 14:18 Dose: 1 applic Lorazepam (Ativan Inj) 0.5 - 1 mg IVP Q6H PRN Magnesium Hydroxide (Mom) 30 ml PO DAILY PRN PRN Reason: Constipation Last Admin: 04/16/17 13:40 Dose: 30 ml Menthol (Ricola Sf) 1 lozenge MM PRN PRN PRN Reason: Cough Multi-Ingredient Ointment (Analgesic [place]) 1 applic TP TID PRN PRN Reason: Pain Last Admin: 04/24/17 13:27 Dose: 1 applic Multivitamins/Minerals (Therapeutic - M) 1 tab PO DAILY [facility] Last Admin: 04/25/17 09:58 Dose: 1 tab Nicotine Polacrilex (Nicorette) 2 mg BC Q1H PRN PRN Reason: Cessation/Smoking/Tobacco use Last Admin: 04/25/17 12:50 Dose: 2 mg Nystatin (Mycostatin) 1 applic TP QID [facility] Last Admin: 04/25/17 10:00 Dose: 1 applic Ondansetron HCl (Zofran) 4 mg IVP Q6H PRN PRN Reason: Nausea &/or vomiting [facility]ep[facility] ([facility]al) [facility] Last Admin: 04/25/17 12:52 Dose: 150 mg Oxycodone HCl (Roxicodone *Ir*) 10 mg PO Q4H PRN PRN Reason: Pain Polyethylene Glycol (Miralax) 17 gm PO BID [facility] Last Admin: 04/25/17 10:01 Dose: Not Given Propranolol HCl (Inderal) [facility] Last Admin: 04/25/17 12:46 Dose: Not Given Rizatriptan Benzoate (Maxalt 5 Mg) 5 - 10 mg PO Q2H PRN PRN Reason: Migraine headache Last Admin: 04/23/17 06:37 Dose: 5 mg Senna/Docusate Sodium (Senna Plus Tablet) 1 tab PO BID PRN Sertraline HCl (Zoloft) 200 mg PO DAILY [facility] Last Admin: 04/25/17 09:58 Dose: 200 mg Sodium Chloride (Iv Flush) 10 ml IV PRN PRN PRN Reason: Flushing Trazodone HCl (Desyrel) 200 mg PO HS [facility] Last Admin: 04/24/17 21:08 Dose: 200 mg Current Medical Issues: Pain management related to right ankle dislocation and fracture of tibia and fibula, constipation Comments: I certify that I personally led the interdisciplinary team meeting and agree with comments, barriers and goals indicated. Team meeting was held in the patient's room with the patient and the following family members present: Patient alone Jaqueline states that she is more rested at night. One of the previous goals was to awaken her no more than twice per night. That has been well accomplished and she states that she feels much more rested and able to participate in therapy. In addition, her bowels are moving relatively well at the present time. Pain management has improved and we are reducing the dose of the oxycodone at this time. Her appetite is good. - Physical Therapy Comments: Jaqueline is moderate assistance for bed/chair/wheelchair transfers, standby assistance for ambulation in the wheelchair some 200 feet. She is not safe for stair climbing as she is nonweightbearing on the right lower extremity. She is moderate assistance for car transfers at this time. She is limited by nonweightbearing status. She is unable to keep that status on a consistent basis. She will need a kneeling scooter as well as a wheelchair. - Occupational Therapy Comments: Jaqueline standby assistance for lower body dressing, bathing and tub transfers. She is at modified independent functioning for toileting assistance. She is standby assistance for toilet transfer. There are concerns about maintaining nonweightbearing status with transfers. - Goals Goals: 1. Toilet transfer with modified independent functioning. 2. Toileting with modified independent status-she has met this with the sliding board 3. Ambulating 150 feet with the kneeling scooter 4. Standby assistance to modified independent to wheelchair/chair/kneeling scooter. 5. Improve strength in left leg. (Patient stated goal) - Barriers to Discharge Barriers to Attaining Goals: Pain Control, Other (safety, use of equipment, maintaining nonweightbearing status right lower extremity) - Care Plan Anticipated DC Destination: Home, Self Care, Home Health Service I have led this team conference and agree with the plan. Anticipated Length of Stay (days): 3
[2017-04-25] MEDS: Oxycodone *IR* 5 MG TABLET PO PRN ×2 (14:28→18:35)
[2017-04-25] MEDS: RIZATRIPTAN 5 MG TABLET PO PRN (15:15)
[2017-04-25] MEDS ORDERED: Oxycodone *IR* 5 MG TABLET PO PRN (16:51)
[2017-04-25] MEDS ORDERED: Oxycodone *IR* 5 MG TABLET PO ONE (17:13)
[2017-04-25] MEDS: TRAZODONE 100 MG TABLET PO SCH (21:30)
[2017-04-25] MEDS: MAG-AL + SIM ORAL LIQUID 30ml PO PRN (23:25)
[2017-04-26] MEDS: POLYETHYL GLYCOL 3350 17gm PACKET PO SCH ×3 (00:33→22:28)
[2017-04-26] MEDS: Oxycodone *IR* 5 MG TABLET PO PRN ×2 (03:27→07:21)
[2017-04-26] MEDS ORDERED: ONDANSETRON ODT 4 MG TABLET PO PRN (03:48)
[2017-04-26] MEDS: ALBUTEROL/IPRATROPIUM 2.5mg-0.5mg/3ml NEB AEROSOL PRN (04:13)
[2017-04-26] MEDS: ACETAMINOPHEN 325 MG TABLET PO PRN (07:21)
[2017-04-26] MEDS: METHYL SALICYLATE/MENTHOL OINT 28gm TP PRN (07:44)
[2017-04-26] MEDS: PROPRANOLOL 20 MG TABLET PO SCH ×2 (09:07→13:53)
--- NOTE | 2017-04-26 09:42 | IRU Progress Note ---
- Subjective/Serverity of Illness Jaqueline was interviewed and examined in her room. She reports she had a very difficult night. She could not get any sleep because of pain. We reduced the oxycodone from 20 mg down to 10 mg every 4 hours. However that apparently was inadequate to hold her she states. In addition, her saturations dropped this morning into the 87% range. She required 2 L to get the saturations above 90. She was given a breathing treatment which helped her a bit. She denies any actual chest pain. She was just a bit dyspneic but she does have underlying bronchospasm from time to time. She has no nausea no vomiting. There is no abdominal pain. She is tearful this morning. She does not feel like she can participate this morning and does not wish to go to breakfast. I discussed the case with Millie with the hospitalist service and they will investigate further. Exam Vital Signs: Temperature 98.4 F 04/26/17 08:00 Pulse Rate 71 04/26/17 08:00 Respiratory Rate 16 04/26/17 08:00 Blood Pressure 90/43 04/26/17 08:00 Pulse Oximetry 89 L 04/26/17 08:37 Height/Weight/BMI: Height 1.65 m Weight 106.1 kg Body Mass Index 39.4 Comments: The patient is awake, alert and very tearful and upset. Pupils are equal. The neck is supple. Chest: Clear to auscultation bilaterally. I do not hear crackles nor wheezes at present. Cor: RR with no gallop, click nor murmur Abd: soft with normo-active bowel sounds. There are no masses, no tenderness and no guarding. Extremities: No edema is noted. IRU A/P (1) Ankle dislocation Qualifiers: Encounter type: initial encounter Laterality: right Qualified Code(s): S93.04XA - Dislocation of right ankle joint, initial encounter Current visit: No Status: Acute Reports significant pain in the leg. We reduced her oxycodone from 20 mg every 4 hours down to 10 mg every 4 hours. We'll increase this back to 15 mg every 4 hours as needed for pain. (2) Tibia/fibula fracture Qualifiers: Encounter type: initial encounter Fracture type: closed Laterality: right Qualified Code(s): S82.201A - Unspecified fracture of shaft of right tibia, initial encounter for closed fracture; S82.401A - Unspecified fracture of shaft of right fibula, initial encounter for closed fracture; S82.401A - Unspecified fracture of shaft of right fibula, initial encounter for closed fracture Current visit: Yes Status: Acute (3) Anemia Qualifiers: Anemia type: unspecified type Qualified Code(s): D64.9 - Anemia, unspecified Current visit: Yes Status: Resolved (4) Right shoulder pain Qualifiers: Chronicity: acute Qualified Code(s): M25.511 - Pain in right shoulder Current visit: Yes Status: Acute (5) Hypoxemia Current visit: Yes Status: Acute She has new onset hypoxemia this morning with saturations around 87%. Required 2 L to get her up over 90%. Denies any chest pain. In addition, her blood pressure was a bit low. I discussed with Millie with the hospitalist service. The patient is on Lovenox prophylactically. DVT Prophylaxis: Lovenox Resuscitation Status: Full Code - Course Hospital Course: Donato Fong MD: 04/15/17 11:11 Pain control has been an issue. She is now on long-acting OxyContin. She took off her own brace from the right lower extremity. Dr. Rey is aware. He plans to place a cast. She states that her appetite is good. She denies nausea or vomiting. Therapy will be held until after the cast is placed. 04/18/17 10:55 She has declined therapy on several occasions. Complains of pain in both ankles as anticipated. She is on routine use of high potency narcotics. She requests Nicorette chewing gum. I'm uncertain why this is needed because her last cigarette was reportedly over 10 years ago. 04/19/17 11:01 Progress is slow with regard to therapy. She states that she finds it difficult to participate due to fatigue and lack of sleep at night. Complains of significant pain. She is getting oxycodone IR every 4 hours around- the-clock. We discussed timing of this to give it prior to shower. Reports of shortness of breath last night relieved with breathing treatment. Appetite remains poor. 04/21/17 11:59 She reports that she is doing better in several areas including shortness of breath which we felt was related to bronchospasm. Has new pain right shoulder. States that this was sustained when she fell at home however. Has reduced range of motion right shoulder. We will x-ray per request. Bowels are moving better. Continues to be tearful and have variable degrees of participation. She is working better with occupational therapy and has better motivation but still requires a lot of encouragement. With physical therapy she is less enthusiastic at present. 04/22/17 14:06 She is more cooperative with therapy today. Bowels are moving better. Radiograph right shoulder negative. Occupational therapy to institute some modalities for pain relief and improved range of motion of right shoulder. 04/25/17 10:35 Had a discussion with Jaqueline regarding the issue of pain management. She is agreeable to reducing the oxycodone IR to 10 mg every 4 hours. She is cooperative with therapy and making progress. Right shoulder is improved. 04/26/17 09:43 Pain control inadequate. Increase oxycodone to 15 mg every 4 hours as needed. New onset hypoxemia at 87% saturation on room air. - Interventions to Obtain Goals PT Treatment Plan: Balance/Proprioception, Functional Activities, Gait Training , Patient/Family Education, Therapeutic Exercise OT Treatment Plan: ADL (Basic Care), Balance Training, IADL, Pt./Family Education, Ther. Exercise for ADL Goals Progress/Modifications: Time spent with patient and on floor reviewing data and documentin min Barriers to dismissal: Pain, endurance Medical decision-making: Differential considerations for her hypoxemia and hypotension include bronchospasm/COPD, pulmonary embolus, cardiac etiology, hypovolemia area and in addition, she has worsened pain control at the present time and will increase her oxycodone back to 15 mg every 4 hours as needed. I discussed with the hospitalist service and they will look into the issue of the hypoxemia and blood pressure.
[2017-04-26] MEDS: ENOXAPARIN 40 MG/0.4 ML INJECTION SQ SCH (10:22)
[2017-04-26] MEDS: FLUTICASONE NASAL SPRAY 50mcg EA NOSTRIL SCH (10:22)
[2017-04-26] MEDS: FERROUS SULFATE 324 MG TABLET PO SCH (10:23)
[2017-04-26] MEDS: MULTI-VITAMIN + MINERAL TABLET PO SCH (10:24)
[2017-04-26] MEDS: SERTRALINE 100 MG TABLET PO SCH (10:24)
[2017-04-26] MEDS: OXCARBAZEPINE 150 MG TABLET PO SCH ×2 (10:25→12:38)
[2017-04-26] MEDS: ASPIRIN *EC* 81 MG TABLET PO SCH ×2 (10:25→22:16)
[2017-04-26] MEDS: BuPROPion XL 150mg (24HR) TABLET PO SCH (10:26)
[2017-04-26] MEDS: CETIRIZINE 10 MG TABLET PO SCH (10:26)
[2017-04-26] MEDS: AMPHETAMINE/DEXTROAMPHETAMINE 10 MG TABLET PO SCH ×2 (10:30→12:38)
[2017-04-26] MEDS ORDERED: IOHEXOL 350mg/ml 75ml INJECTION ONE (10:42)
[2017-04-26] MEDS ORDERED: NS 100 ML ONE (10:42)
[2017-04-26] MEDS ORDERED: SALINE FLUSH 10ml SYRINGE ONE (10:42)
[2017-04-26] MEDS: Oxycodone *IR* 15 MG TABLET PO PRN ×3 (11:30→22:08)
--- NOTE | 2017-04-26 11:37 | CT Scan Report ---
Indication: acute hypoxia and hypotension CT angio pulm emboli: Comparison: Chest radiograph 04/18/2017 Technique: Patient scanned from above the thoracic inlet to below the diaphragms after 72 cc Omni 350 intravenous contrast is used with dose reduction imaging technology and reformatted sagittal, coronal and 3-D MIP images. Findings: Patient demonstrates no acute findings involving the aorta the great vessels. No pulmonary thromboembolism identified. Pulmonary parenchyma showed no acute findings. Potential findings seen on the previous chest radiograph in the right upper chest is not showing marked abnormality. There is a very subtle area of haziness in the posterior aspect of the right mid chest. Reformatted axial imaging shows degenerative changes with bridging osteophytes in the midthoracic spine but no acute fractures. Impression: 1. No acute pulmonary thromboembolism or acute aortic dissection. 2. Normal heart size. 3. A very subtle hazy area of density in the right mid chest without significant acute findings. 4. Degenerative changes with hypertrophic bony arthropathy and anterior osteophytes in the midthoracic region with no marked acute findings. .
--- NOTE | 2017-04-26 12:11 | Progress Note ---
<Millie Archer - Last Filed: 04/26/17 14:17> - Date 04/26/17 Subjective: Patient was seen lying in bed this morning. Dr. Fong had notified me that she became hypoxic and hypotensive around 8:00 this morning. At 4:00 when she had been checked on, her oxygen sats were normal, as was her blood pressure. Patient reports she had a very bad night last night. States her pain was not controlled. She was having quite a bit of pain in her right shoulder and in her ankle. She states her pain is less this morning, but is still significant. She' s not had additional pain medicine, if anything, Dr. Fong has been cutting back some. She states she was having trouble breathing earlier. She has no complaints of shortness of breath at this time of exam. She is on Lovenox 40 mg subcutaneous daily for DVT prophylaxis. She has not been running fever. 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 She was given Zofran at 3:50 AM and received 10 mg Roxicodone at 720. Symptoms could simply be related to the administration of these medications. Objective Vital signs: Temperature 98.4 F 04/26/17 08:00 Pulse Rate 63 04/26/17 11:49 Respiratory Rate 16 04/26/17 08:00 Blood Pressure 103/52 04/26/17 11:49 Pulse Oximetry 97 04/26/17 11:49 Height/Weight/BMI: Height 1.65 m Weight 106.1 kg Body Mass Index 39.4 - Constitutional Present: no acute distress, well nourished, well developed - Routine HEENT Exam Head: Present: normocephalic Comments: Lips are dry - Routine Respiratory Exam Present: CTA bilaterally. Absent: wheezes - Routine Cardiovascular Exam Present: RRR, S1, S2. Absent: murmur - Routine Abdominal Exam Present: soft, normoactive bowel sounds, non distended. Absent: tenderness - Routine Extremities Exam Present: no edema, normal capillary refill - Routine Skin Exam Present: dry, warm - Routine Neurological Exam Present: alert, oriented X3 - Routine Lymphatic Exam Lymphatic: Absent: adenopathy - Routine Psychiatric Exam Present: normal affect, cooperative Comments: Tearful Results - Labs CBC & Chem 7: 04/26/17 10:00 04/26/17 10:00 - Imaging and Cardiology CT scan - chest Additional comments: 04/26/17-CTA chest Impression: 1. No acute pulmonary thromboembolism or acute aortic dissection. 2. Normal heart size. 3. A very subtle hazy area of density in the right mid chest without significant acute findings. 4. Degenerative changes with hypertrophic bony arthropathy and anterior osteophytes in the midthoracic region with no marked acute findings. Assessment and Plan (1) Ankle dislocation Current visit: No Status: Acute (2) Tibia/fibula fracture Current visit: Yes Status: Acute Assessment and Plan: Assessment New onset hypoxia and hypotension-rule out pulmonary embolus versus medication effect versus other Status post ORIF right tib-fib fracture on 04/08/17 Right shoulder pain Constipation Normocytic anemia GERD Recovering alcoholic Migraine headaches - propranolol available but has not used Obesity, BMI 39.4 Nocturnal hypoxemia Plan Stat CBC, BMP and CTA chest were ordered. Her white blood cell count remains normal at 7.4. Hemoglobin stable at 12.2. Her BMP is essentially negative other than a CO2 of 33. Her CTA chest was negative for pulmonary embolism, but did show a "very subtle hazy area of density in the right mid chest without significant acute findings." Right shoulder MRI has been performed. Results are pending. Patient was bolused a liter of normal saline. In discussion with nursing staff at 12:30, patient is on room air with normal saturations and blood pressure has improved. Case discussed with Dr. Prieto. She has also seen patient. Will continue to monitor patient closely. Hospital Course Summary Disclaimer: The visit summary below is not to be considered part of the above Progress Note. Hospital Course: 04/14/17 Assessment Status post ORIF right tib-fib fracture on 04/08/17 Normocytic anemia GERD Recovering alcoholic Migraine headaches - propranolol available but has not used Obesity, BMI 39.4 Plan We'll monitor continuous pulse oximetry with patient's concerns and recent brief periods of nocturnal hypoxia. She is at risk for sleep apnea given her central obesity. Discussed significant itching to Right lower extremity with Dr. Rey. He recommends to remove the splint and cover the incision with 4 x 4 and Kerlix and to hold PT until he can come in place a new splint. Labs reviewed: Mild normocytic anemia with hemoglobin of 11.3. Chemistries show a mildly elevated CO2 at 34, which has increased from her acute stay Pain control per attending. 04/18/17 Check CXR d/t cough. Add cough drops and acapella. Increase fluticasone nasal spray. Hx >20 pack year smoking hx; will DC PRN neb albuterol and try duoneb. Lightheaded/dizzy, subjective f/c - check CBC and BMP. Encourage fluids. Nausea, constipation - increase MiraLAX to BID; schedule SennaPlus (was PRN); add dulcolax supp. PRN. MOM PRN. PT/OT and pain control per attending. 04/24/17 Doing well. Icy Hot + heating pad helps keep right shoulder pain at bay. Change Senna Plus to PRN. Recent labs/UA - unremarkable. 04/26/17 New onset hypoxia and hypotension-rule out pulmonary embolus Stat CBC, BMP and CTA chest were ordered. Her white blood cell count remains normal at 7.4. Hemoglobin stable at 12.2. Her BMP is essentially negative other than a CO2 of 33. Her CTA chest was negative for pulmonary embolism, but did show a "very subtle hazy area of density in the right mid chest without significant acute findings." Right shoulder MRI has been performed. Results are pending. Patient was bolused a liter of normal saline. In discussion with nursing staff at 12:30, patient is on room air with normal saturations and blood pressure has improved. Case discussed with Dr. Prieto. She has also seen patient. Will continue to monitor patient closely. <Batsheva Prieto L - Last Filed: 04/26/17 21:07> - Date 04/26/17 Objective Vital signs: Temperature 97.6 F 04/26/17 16:05 Pulse Rate 74 04/26/17 16:05 Respiratory Rate 16 04/26/17 16:05 Blood Pressure 92/78 04/26/17 16:05 Pulse Oximetry 100 04/26/17 16:05 Height/Weight/BMI: Height 1.65 m Weight 106.1 kg Body Mass Index 39.4 Results - Labs CBC & Chem 7: 04/26/17 10:00 04/26/17 10:00 Assessment and Plan (1) Ankle dislocation Current visit: No Status: Acute (2) Tibia/fibula fracture Current visit: Yes Status: Acute Assessment and Plan: 04/26/2017-I reviewed this chart, the patient history, and the BLOG WRITER's/PA's documented findings as above. We discussed and formulated the assessment and plan as above with the additions below.-Dr. Prieto I did go to see the patient this morning when she had hypotension and new onset hypoxia. There is concern for possible PE. CTA chest was negative for PE. The patient requested CT of the right shoulder as well secondary to significant right shoulder pain. Shoulder CT showed degenerative changes in the before meals joint and glenohumeral joint without acute fracture or dislocation. The patient denied any chest pain. On exam the patient was alert and oriented and in no acute distress. Chest is clear to auscultation. Cardio vascular reveals a regular rate and rhythm. Abdomen is soft and nontender. Right leg is casted. Left leg revealed no edema. Most likely the patient's hypotension and hypoxia were secondary to narcotics. Hypoxia resolved later in the day. The patient has borderline low blood pressure and is asymptomatic. We'll continue to monitor. Okay to resume therapy. Hospital Course Summary Disclaimer: The visit summary below is not to be considered part of the above Progress Note.
[2017-04-26] MEDS: RIZATRIPTAN 5 MG TABLET PO PRN (12:39)
--- NOTE | 2017-04-26 13:21 | CT Scan Report ---
Indication: shoulder pain post fall. xray ok CT shoulder RT wo con: Comparison: None Technique: Nonenhanced axial images provided with reformatted sagittal, coronal and 3-D MIP imaging. Findings: Patient shows some degenerative changes in the AC joint. No acute fracture or dislocation is identified. The glenohumeral joint shows mild degenerative changes. Proximal humerus appears intact. Scapula is intact. Impression: Patient showed degenerative changes about the before meals and glenohumeral joint without acute fracture or dislocation appreciated. Three-D reformatted images showed no additional acute findings. .
[2017-04-26] MEDS: TRAZODONE 100 MG TABLET PO SCH (22:15)
[2017-04-27] MEDS: Oxycodone *IR* 15 MG TABLET PO PRN ×5 (02:08→19:34)
[2017-04-27] MEDS: FERROUS SULFATE 324 MG TABLET PO SCH (09:07)
[2017-04-27] MEDS: BuPROPion XL 150mg (24HR) TABLET PO SCH (09:07)
[2017-04-27] MEDS: SERTRALINE 100 MG TABLET PO SCH (09:07)
[2017-04-27] MEDS: OXCARBAZEPINE 150 MG TABLET PO SCH ×2 (09:07→12:54)
[2017-04-27] MEDS: CETIRIZINE 10 MG TABLET PO SCH (09:07)
[2017-04-27] MEDS: MULTI-VITAMIN + MINERAL TABLET PO SCH (09:07)
[2017-04-27] MEDS: ENOXAPARIN 40 MG/0.4 ML INJECTION SQ SCH (09:09)
[2017-04-27] MEDS: POLYETHYL GLYCOL 3350 17gm PACKET PO SCH ×3 (09:10→22:13)
[2017-04-27] MEDS: AMPHETAMINE/DEXTROAMPHETAMINE 10 MG TABLET PO SCH ×2 (09:24→12:54)
[2017-04-27] MEDS: PROPRANOLOL 20 MG TABLET PO SCH ×3 (09:24→12:55)
[2017-04-27] MEDS: ASPIRIN *EC* 81 MG TABLET PO SCH ×2 (09:24→22:13)
[2017-04-27] MEDS: FLUTICASONE NASAL SPRAY 50mcg EA NOSTRIL SCH (09:25)
[2017-04-27] MEDS: METHYL SALICYLATE/MENTHOL OINT 28gm TP PRN (09:47)
--- NOTE | 2017-04-27 11:16 | XRay Report ---
EXAM: XR ankle LT 2V COMPARISON: None available. HISTORY: pain in ankle, old sprain, no new trauma . FINDINGS: There is plantar calcaneal spurring. There is a tiny osseous structure at the tip of the medial malleolus. This is similar to the prior exam of 04/08/2017 and could represent a avulsion injury although the age is indeterminate. No callus formation is seen. The base of the fifth metatarsal is not well imaged. The lateral malleolus is intact. Ankle mortise is intact. IMPRESSION: 1. Tiny osseous structure at the tip of the medial malleolus which may represent an avulsion injury, age of which is indeterminate, but appears similar to the prior exam without callus formation identified. 2. Plantar calcaneal spurring. LOCATION OF DICTATION: [facility] [place] .
--- NOTE | 2017-04-27 11:52 | IRU Progress Note ---
- Subjective/Serverity of Illness Parsons was evaluated in her room on acute rehabilitation. She has had no recurrence of her shortness of breath etc. Workup was negative for pulmonary embolus based on negative CT angiogram of the chest. Oxygen saturations and blood pressures have been better. However she did develop significant increased pain in the left ankle sometime during the night or this morning which is the side that was sprained only. Even light touch to the ankle demonstrates significant pain. There is some minor edema noted but it does not appear to be any worse than I would expect at this point in the healing process. A plain radiograph is ordered urgently and this is reviewed. There is no change from the previous appearance. She has not reinjured it to her knowledge. We had initially held therapy but I told her we should go ahead and get started on therapy again. She states that her bowels are moving well. She still plans to go home tomorrow. Exam Vital Signs: Temperature 97.7 F 04/27/17 08:00 Pulse Rate 74 04/27/17 08:00 Respiratory Rate 16 04/27/17 08:00 Blood Pressure 100/67 04/27/17 08:00 Pulse Oximetry 99 04/27/17 08:00 Height/Weight/BMI: Height 1.65 m Weight 106.1 kg Body Mass Index 39.4 Comments: The patient is awake, alert and oriented and in no acute distress. Pupils are equal. The neck is supple. Chest: Clear to auscultation bilaterally. Cor: RR with no gallop, click nor murmur Abd: soft with normo-active bowel sounds. There are no masses, no tenderness and no guarding. Extremities: The right foot exposed area is unchanged. Left ankle was carefully examined. I do not see any evidence of skin breakdown. There is exquisite discomfort with even very light touch to the ankle. There is a small amount of edema which I would anticipate to be normal at this point in the healing process. Radiograph is reviewed and is unchanged. Small avulsion injury noted but this was present previously. No new injury is noted.. Results IRU - Labs Labs: X-ray of left ankle. IRU A/P (1) Ankle dislocation Qualifiers: Encounter type: initial encounter Laterality: right Qualified Code(s): S93.04XA - Dislocation of right ankle joint, initial encounter Current visit: No Status: Acute The right ankle appears to be doing well. She states there is not much discomfort there at the present time. (2) Tibia/fibula fracture Qualifiers: Encounter type: initial encounter Fracture type: closed Laterality: right Qualified Code(s): S82.201A - Unspecified fracture of shaft of right tibia, initial encounter for closed fracture; S82.401A - Unspecified fracture of shaft of right fibula, initial encounter for closed fracture; S82.401A - Unspecified fracture of shaft of right fibula, initial encounter for closed fracture Current visit: Yes Status: Acute (3) Anemia Qualifiers: Anemia type: unspecified type Qualified Code(s): D64.9 - Anemia, unspecified Current visit: Yes Status: Resolved (4) Right shoulder pain Qualifiers: Chronicity: acute Qualified Code(s): M25.511 - Pain in right shoulder Current visit: Yes Status: Acute (5) Hypoxemia Current visit: Yes Status: Resolved Workup was negative yesterday with regard to CT of the chest. No evidence of pulmonary embolus. Oxygen saturations are improved. (6) Ankle pain, left Qualifiers: Chronicity: acute Qualified Code(s): M25.572 - Pain in left ankle and joints of left foot Current visit: Yes Status: Acute Had sudden increase in left ankle pain sometime during the night or bait tier hours. She knows of no trauma. There is exquisite discomfort even with light touch of the left ankle. Mild edema is noted. I would anticipate this to be normal for this time of the healing process. She finds significant discomfort with weightbearing. It is possible this is an overuse phenomenon. Radiograph is ordered and reviewed urgently. No changes noted. DVT Prophylaxis: Lovenox Resuscitation Status: Full Code - Course Hospital Course: Donato Fong MD: 04/15/17 11:11 Pain control has been an issue. She is now on long-acting OxyContin. She took off her own brace from the right lower extremity. Dr. Rey is aware. He plans to place a cast. She states that her appetite is good. She denies nausea or vomiting. Therapy will be held until after the cast is placed. 04/18/17 10:55 She has declined therapy on several occasions. Complains of pain in both ankles as anticipated. She is on routine use of high potency narcotics. She requests Nicorette chewing gum. I'm uncertain why this is needed because her last cigarette was reportedly over 10 years ago. 04/19/17 11:01 Progress is slow with regard to therapy. She states that she finds it difficult to participate due to fatigue and lack of sleep at night. Complains of significant pain. She is getting oxycodone IR every 4 hours around- the-clock. We discussed timing of this to give it prior to shower. Reports of shortness of breath last night relieved with breathing treatment. Appetite remains poor. 04/21/17 11:59 She reports that she is doing better in several areas including shortness of breath which we felt was related to bronchospasm. Has new pain right shoulder. States that this was sustained when she fell at home however. Has reduced range of motion right shoulder. We will x-ray per request. Bowels are moving better. Continues to be tearful and have variable degrees of participation. She is working better with occupational therapy and has better motivation but still requires a lot of encouragement. With physical therapy she is less enthusiastic at present. 04/22/17 14:06 She is more cooperative with therapy today. Bowels are moving better. Radiograph right shoulder negative. Occupational therapy to institute some modalities for pain relief and improved range of motion of right shoulder. 04/25/17 10:35 Had a discussion with Jaqueline regarding the issue of pain management. She is agreeable to reducing the oxycodone IR to 10 mg every 4 hours. She is cooperative with therapy and making progress. Right shoulder is improved. 04/26/17 09:43 Pain control inadequate. Increase oxycodone to 15 mg every 4 hours as needed. New onset hypoxemia at 87% saturation on room air. 04/27/17 11:54 Previously noted hypoxemia and hypotension have improved. She is on increased dose of oxycodone. New or worsened pain in left ankle noted. No trauma. Radiograph negative. - Interventions to Obtain Goals PT Treatment Plan: Balance/Proprioception, Functional Activities, Gait Training , Patient/Family Education, Therapeutic Exercise OT Treatment Plan: ADL (Basic Care), Balance Training, IADL, Pt./Family Education, Ther. Exercise for ADL Goals Progress/Modifications: Time spent with patient and on floor reviewing data and documentin min Barriers to dismissal: pain in left ankle, balance, endurance Medical decision-making: Jaqueline has not had recurrence of her shortness of breath or hypoxemia. She denies any chest pain. Workup was negative yesterday. Blood pressures are improved. However has new development of left ankle pain which is the side that was sprained. There is exquisite tenderness to even light touch of the ankle. Repeat radiograph was ordered and reviewed urgently. No evidence of change in bony structures etc. There is a mild amount of edema. I think it is appropriate to continue therapy at present.
--- NOTE | 2017-04-27 12:11 | Progress Note ---
<Julia Bryant - Last Filed: 04/27/17 12:07> - Date 04/27/17 Subjective: Jaqueline is seen today in follow up for her right tibia and ankle fracture and complains of new pain and burning to her LEFT lateral ankle. She complains of severe pain to her left lateral ankle over the lateral malleolus and describes the pain as burning. She states the pain woke her up last night and has persisted since. She reports that she doesn't think she is able to continue with therapy because her pain is so severe, especially with pivoting. Exam of the area reveals mild swelling without erythema, ecchymosis, lesions or wounds. X-rays were obtained this morning and revealed a tiny osseous structure at the tip of the medial malleolus which may represent an avulsion injury, age of which is indeterminate, but appears similar to the prior exam without callus formation identified as well as a plantar calcaneal spurring. Results of the x- ray were discussed with her. She denies any other complaints or concerns including no chest pain, shortness of breath, abdominal pain, nausea, vomiting or dysuria. Her appetite has been stable. She is anticipated to discharge home tomorrow with home health. Objective Vital signs: Temperature 97.7 F 04/27/17 08:00 Pulse Rate 74 04/27/17 08:00 Respiratory Rate 16 04/27/17 08:00 Blood Pressure 100/67 04/27/17 08:00 Pulse Oximetry 99 04/27/17 08:00 Height/Weight/BMI: Height 5 ft 5 in Weight 233 lb 14.567 oz Body Mass Index 39.4 Comments: Patient is resting in bed and tearful on exam. Appears uncomfortable with evaluation, palpation and movement of her left ankle. - Constitutional Present: mild distress, well nourished, well developed, obese, cooperative - Routine HEENT Exam Head: Present: normocephalic, atraumatic Eye: Present: PERRL. Absent: conjunctival icterus ENT: Present: mucous membranes moist - Routine Respiratory Exam Present: CTA bilaterally - Routine Cardiovascular Exam Present: RRR, S1, S2 - Routine Abdominal Exam Present: soft, normoactive bowel sounds, non distended, non tender - Routine Extremities Exam Present: pulses intact, normal capillary refill. Absent: cyanosis Comments: mild swelling noted to left lateral ankle; no erythema or ecchymosis; no wounds or lesions; tenderness with gentle touch and palpation of lateral ankle over lateral malleolus; N/V intact and 3+ pedal pulses; brisk cap refill. Right ankle and lower extremity in cast. - Routine Back/Spine/Pelvis Exam Back/Spine: Present: full ROM - Routine Musculoskeletal Exam Musculoskeletal: Present: limited range of motion - Routine Skin Exam Present: intact, dry, warm. Absent: jaundice Comments: afebrile. - Routine Neurological Exam Present: alert, oriented X3, hearing grossly intact, normal speech - Routine Lymphatic Exam Lymphatic: Absent: lymphedema - Routine Psychiatric Exam Present: cooperative Comments: tearful on exam. Results - Labs CBC & Chem 7: 04/26/17 10:00 04/26/17 10:00 Assessment and Plan (1) Ankle dislocation Current visit: No Status: Acute (2) Tibia/fibula fracture Current visit: Yes Status: Acute Assessment and Plan: Assessment: Status post ORIF right tib-fib fracture on 04/08/17. Left ankle pain, new, acute. Normocytic anemia GERD Recovering alcoholic Migraine headaches - propranolol available but has not used Obesity, BMI 39.4 Plan-04/27/17.Mirakian. Patient complains of new left lateral ankle pain. X-rays were obtained this morning and revealed a tiny osseous structure at the tip of the medial malleolus which may represent an avulsion injury, age of which is indeterminate , but appears similar to the prior exam without callus formation identified as well as a plantar calcaneal spurring. Results of the x-ray were discussed with her. Will consult Dr. Rey for further evaluation and treatment recommendations. Patient continues to have borderline low blood pressure and remains asymptomatic. Hypoxia has resolved. Continue to monitor blood pressure closely , especially with narcotic treatment. Continue to measure I&O. Continue to encourage acapella. Labs on 04/26 were unremarkable. Anticipate discharge home on 04/28 with home health. Continue to encourage participation in therapies and provide safe and supportive environment. DVT Prophylaxis: SCD's Resuscitation Status: Full Code - Time spent with patient Time with patient PN: 25 minutes Hospital Course Summary Disclaimer: The visit summary below is not to be considered part of the above Progress Note. Hospital Course: 04/14/17 Assessment Status post ORIF right tib-fib fracture on 04/08/17 Normocytic anemia GERD Recovering alcoholic Migraine headaches - propranolol available but has not used Obesity, BMI 39.4 Plan We'll monitor continuous pulse oximetry with patient's concerns and recent brief periods of nocturnal hypoxia. She is at risk for sleep apnea given her central obesity. Discussed significant itching to Right lower extremity with Dr. Rey. He recommends to remove the splint and cover the incision with 4 x 4 and Kerlix and to hold PT until he can come in place a new splint. Labs reviewed: Mild normocytic anemia with hemoglobin of 11.3. Chemistries show a mildly elevated CO2 at 34, which has increased from her acute stay Pain control per attending. 04/18/17 Check CXR d/t cough. Add cough drops and acapella. Increase fluticasone nasal spray. Hx >20 pack year smoking hx; will DC PRN neb albuterol and try duoneb. Lightheaded/dizzy, subjective f/c - check CBC and BMP. Encourage fluids. Nausea, constipation - increase MiraLAX to BID; schedule SennaPlus (was PRN); add dulcolax supp. PRN. MOM PRN. PT/OT and pain control per attending. 04/24/17 Doing well. Icy Hot + heating pad helps keep right shoulder pain at bay. Change Senna Plus to PRN. Recent labs/UA - unremarkable. 04/26/17 New onset hypoxia and hypotension-rule out pulmonary embolus Stat CBC, BMP and CTA chest were ordered. Her white blood cell count remains normal at 7.4. Hemoglobin stable at 12.2. Her BMP is essentially negative other than a CO2 of 33. Her CTA chest was negative for pulmonary embolism, but did show a "very subtle hazy area of density in the right mid chest without significant acute findings." Right shoulder MRI has been performed. Results are pending. Patient was bolused a liter of normal saline. In discussion with nursing staff at 12:30, patient is on room air with normal saturations and blood pressure has improved. Case discussed with Dr. Prieto. She has also seen patient. Will continue to monitor patient closely. Plan-04/27/17.Mirakian. Patient complains of new left lateral ankle pain. X-rays were obtained this morning and revealed a tiny osseous structure at the tip of the medial malleolus which may represent an avulsion injury, age of which is indeterminate , but appears similar to the prior exam without callus formation identified as well as a plantar calcaneal spurring. Results of the x-ray were discussed with her. Will consult Dr. Rey for further evaluation and treatment recommendations. Patient continues to have borderline low blood pressure and remains asymptomatic. Hypoxia has resolved. Continue to monitor blood pressure closely , especially with narcotic treatment. Continue to measure I&O. Continue to encourage acapella. Labs on 04/26 were unremarkable. Anticipate discharge home on 04/28 with home health. Continue to encourage participation in therapies and provide safe and supportive environment. <Batsheva Prieto - Last Filed: 04/28/17 11:09> - Date 04/28/17 Objective Vital signs: Temperature 97.7 F 04/28/17 08:00 Pulse Rate 82 04/28/17 08:00 Respiratory Rate 16 04/28/17 08:00 Blood Pressure 144/78 H 04/28/17 08:00 Pulse Oximetry 95 04/28/17 08:00 Height/Weight/BMI: Height 1.65 m Weight 104 kg Body Mass Index 39.4 Results - Labs CBC & Chem 7: 04/26/17 10:00 04/26/17 10:00 Assessment and Plan (1) Ankle dislocation Current visit: No Status: Acute (2) Tibia/fibula fracture Current visit: Yes Status: Acute Hospital Course Summary Disclaimer: The visit summary below is not to be considered part of the above Progress Note.
--- NOTE | 2017-04-27 13:44 | Discharge Instructions ---
Discharge Plan - Med Rec/Dispo Referrals/Follow Up: Dilip Ko PA [Physician Monotype Keyboard Operator] - ([facility] on 05/09/17 at 2:30 pm for Post-Op follow-up. . ( Check-in at 2:00 pm to allow for xrays to be taken). [address] [place] [address] ) Radha Payne APRN [Family Provider] - (Radha Payne APRN on 05/02/17 at 12:45 pm for Hosp. follow-up. [facility] [address] [place] [address]) Prescriptions: New Albuterol HFA Inhaler [Ventolin Hfa 90 mcg/actuation] 2 puff ORAL INH Q4HR PRN #1 inhaler PRN Reason: Shortness Of Air Nystatin Powder [Mycostatin] 1 applicatio TP QID #1 bottle Ondansetron Odt [Zofran Po] 4 mg PO Q6H PRN #10 tab PRN Reason: Nausea &/Or Vomiting PEG 3350 17gm PACKET [Miralax] 17 gm PO BID packet Acetaminophen [Tylenol] 650 mg PO Q5H PRN tablet PRN Reason: Discomfort Bisacodyl Supp [Dulcolax] 10 mg RECTALLY DAILY PRN supp PRN Reason: Constipation Nicotine Polacrilex [Nicorette] 2 mg BC Q1H PRN #30 gum PRN Reason: Cessation/Smoking/Tobacco Use Senna + Docusate [Senna Plus Tablet] 1 tab PO BID PRN tablet PRN Reason: Constipation Oxycodone *IR* [Roxicodone *Ir*] 15 mg PO Q4H PRN #40 tablet PRN Reason: Pain Continue Vitamin B Complex 1 tab PO DAILY #0 Cholecalciferol (Vitamin D3) [Vitamin D3] 10,000 unit PO DAILY #0 Multivitamin/Iron/Folic Acid [Centrum Women Tablet] 1 tab PO DAILY Fluticasone Nasal [place] [Flonase] 1 spray EA NOSTRIL DAILY PRN PRN Reason: Prn Orders BuPROPion XL [Wellbutrin Xl] 150 mg PO DAILY Cetirizine [Zyrtec] 10 mg PO DAILY Rizatriptan [Maxalt 5 mg] 5 mg PO DAILY PRN PRN Reason: Migraine Headache OXcarbazepine [Trileptal] 150 mg PO BIDBL Sertraline [Zoloft] 200 mg PO DAILY Aspirin *EC* [Ecotrin] 81 mg PO BID #84 tab Amphetamine/Dextroamphetamine [Adderall] 10 mg PO NOON #5 tab Dextroamphetamine/Amphetamine [Dextroamp-Amphet ER 30 mg Cap] 30 mg PO QAM # 5 cap.er.24h Propranolol HCl 40 mg PO BIDBL #0 Albuterol Sulfate [Proair Hfa] 1 puff INH Q4H PRN PRN Reason: Prn Orders Trazodone [Desyrel] 200 mg PO HS Discontinued Ferrous Sulfate [Iron] 325 mg PO DAILY Vitamin E 1 tab PO DAILY Oxycodone/Apap 7.5/325 [Percocet 7.5/325] 1 - 2 tab PO Q4H PRN #60 tab PRN Reason: Pain Ibuprofen [Advil] 200 mg PO Q4H PRN PRN Reason: Pain No Action PEG 3350 17gm PACKET [Miralax] 17 gm PO DAILY #30 packet PEG 3350 17gm PACKET [Miralax] 17 gm PO DAILY packet Discharge Instructions/Outpatient Orders: Consulting Provider Discharge Instructions Location: Determined By Patient Provider Discharge Instructions Location: Determined By Patient - Disposition [address] [place] [address]
--- NOTE | 2017-04-27 14:53 | Discharge Instructions ---
Discharge Plan - Med Rec/Dispo Referrals/Follow Up: Dilip Ko PA [Physician Soldering Machine Setter] - ([facility] on 05/09/17 at 2:30 pm for Post-Op follow-up. . ( Check-in at 2:00 pm to allow for xrays to be taken). [facility] [address] [place] [address] [place] [address] ) Radha Payne APRN [Family Provider] - (Radha Payne APRN on 05/02/17 at 12:45 pm for Hosp. follow-up. [facility] [address] [place] [address]) Prescriptions: New Albuterol HFA Inhaler [Ventolin Hfa 90 mcg/actuation] 2 puff ORAL INH Q4HR PRN #1 inhaler PRN Reason: Shortness Of Air DiphenhydrAMINE [Benadryl] 25 mg PO Q6H PRN capsule PRN Reason: Itching Nystatin Powder [Mycostatin] 1 applicatio TP QID #1 bottle Ondansetron Odt [Zofran Po] 4 mg PO Q6H PRN #10 tab PRN Reason: Nausea &/Or Vomiting PEG 3350 17gm PACKET [Miralax] 17 gm PO BID packet Acetaminophen [Tylenol] 650 mg PO Q5H PRN tablet PRN Reason: Discomfort Bisacodyl Supp [Dulcolax] 10 mg RECTALLY DAILY PRN supp PRN Reason: Constipation Nicotine Polacrilex [Nicorette] 2 mg BC Q1H PRN #30 gum PRN Reason: Cessation/Smoking/Tobacco Use Senna + Docusate [Senna Plus Tablet] 1 tab PO BID PRN tablet PRN Reason: Constipation Oxycodone *IR* [Roxicodone *Ir*] 15 mg PO Q4H PRN #40 tablet PRN Reason: Pain Continue Vitamin B Complex 1 tab PO DAILY #0 Cholecalciferol (Vitamin D3) [Vitamin D3] 10,000 unit PO DAILY #0 Multivitamin/Iron/Folic Acid [Centrum Women Tablet] 1 tab PO DAILY Fluticasone Nasal [place] [Flonase] 1 spray EA NOSTRIL DAILY PRN PRN Reason: Prn Orders Ferrous Sulfate [Iron] 325 mg PO DAILY BuPROPion XL [Wellbutrin Xl] 150 mg PO DAILY Cetirizine [Zyrtec] 10 mg PO DAILY Rizatriptan [Maxalt 5 mg] 5 mg PO DAILY PRN PRN Reason: Migraine Headache OXcarbazepine [Trileptal] 150 mg PO BIDBL Sertraline [Zoloft] 200 mg PO DAILY Aspirin *EC* [Ecotrin] 81 mg PO BID #84 tab Amphetamine/Dextroamphetamine [Adderall] 10 mg PO NOON #5 tab Dextroamphetamine/Amphetamine [Dextroamp-Amphet ER 30 mg Cap] 30 mg PO QAM # 5 cap.er.24h Propranolol HCl 40 mg PO BIDBL #0 Ibuprofen [Advil] 200 mg PO Q4H PRN PRN Reason: Pain Albuterol Sulfate [Proair Hfa] 1 puff INH Q4H PRN PRN Reason: Prn Orders Trazodone [Desyrel] 200 mg PO HS Discontinued Oxycodone/Apap 7.5/325 [Percocet 7.5/325] 1 - 2 tab PO Q4H PRN #60 tab PRN Reason: Pain No Action Vitamin E 1 tab PO DAILY PEG 3350 17gm PACKET [Miralax] 17 gm PO DAILY #30 packet PEG 3350 17gm PACKET [Miralax] 17 gm PO DAILY packet Discharge Instructions/Outpatient Orders: Consulting Provider Discharge Instructions Location: Determined By Patient Provider Discharge Instructions Location: Determined By Patient - Disposition 01 Discharged Home, Self-Care
[2017-04-27] MEDS: RIZATRIPTAN 5 MG TABLET PO PRN (16:53)
[2017-04-27] MEDS: TRAZODONE 100 MG TABLET PO SCH (22:13)
[2017-04-28] MEDS: Oxycodone *IR* 15 MG TABLET PO PRN ×3 (04:57→13:16)
--- NOTE | 2017-04-28 07:31 | Orthopedic Consult Note ---
Orthopedic Consultation HPI - Consultation Info Consult Date: 04/28/17 Attending Physician: Amee Rey MD Consult Reason: joint pain, fracture - History of Present Illness Mrs. Lomeli is now in IRU recovering from her right ankle fracture/ dislocation. She has been complaining of her left ankle hurting. Discharge plans are to allow discharge to home with home health today. She previously complained of the left ankle hurting during her acute stay. It was X-rayed and evaluated at that time. X-rays were negative and a brace was provided. She would often refuse to wear the brace. New X-rays were taken yesterday for further evaluation. These X-rays are negative for fracture as well. She has not had a new injury. Her pain is located laterally, worse with activity better with rest. She did have a CTA done during her IRU stay which was negative for clot. Review of Systems - Constitutional Constitutional: Absent: chills, headache(s) - Cardiovascular Cardiovascular: Absent: chest pain Vascular: Absent: pallor of an extermity, pedal edema - Respiratory Respiratory: Absent: cough - Gastrointestinal Gastrointestinal: Absent: abdominal pain - Musculoskeletal Musculoskeletal: Present: as per HPI - Neurological Neurological: Present: abnormal gait, weakness [facility] Patient Stated Medical History Other HEENT Yes: wears glasses Coronary Artery Disease No Hypertension No Asthma No Sleep Apnea No Diabetes Mellitus Type 2 No Gastroesophageal Reflux Yes Disease Hx Incontinence No Other Musculoskeletal Yes: anxiety Anesthesia Reactions Yes: does not want Ketamine due to previous bad experience Post Menopausal Yes Medical History Updates: has a history of migraine headaches for which she has propranolol available but has not used. Apparently had an overnight oximetry demonstrating hypoxia. Has not had a formal sleep study. Surgical History: 1. Cholecystectomy. 2. Partial hysterectomy without BSO. 3. T&A. 4. Right ankle open reduction internal fixation 04/08/17 - Dr. Rey - Social History Smoking status: Former smoker (quit smoking at age 44) Current residence: Apartment/Private Home Medications Home Medications Medication Instructions Recorded Confirmed Type Cholecalciferol (Vitamin D3) 10,000 unit PO DAILY #0 09/27/15 04/07/17 History [Vitamin D3] Vitamin B Complex 1 tab PO DAILY #0 09/27/15 04/07/17 History Propranolol HCl 40 mg PO BIDBL #0 07/30/16 04/07/17 History Albuterol Sulfate [Proair Hfa] 1 puff INH Q4H PRN 04/02/17 04/07/17 History BuPROPion XL [Wellbutrin Xl] 150 mg PO DAILY 04/02/17 04/07/17 History Cetirizine [Zyrtec] 10 mg PO DAILY 04/02/17 04/07/17 History Ferrous Sulfate [Iron] 325 mg PO DAILY 04/02/17 04/07/17 History Fluticasone Nasal [place] [Flonase] 1 spray EA NOSTRIL DAILY PRN 04/02/17 History Ibuprofen [Advil] 200 mg PO Q4H PRN 04/02/17 04/07/17 History Multivitamin/Iron/Folic Acid 1 tab PO DAILY 04/02/17 04/07/17 History [Centrum Women Tablet] OXcarbazepine [Trileptal] 150 mg PO BIDBL 04/02/17 04/07/17 History Rizatriptan [Maxalt 5 mg] 5 mg PO DAILY PRN 04/02/17 04/07/17 History Sertraline [Zoloft] 200 mg PO DAILY 04/02/17 04/07/17 History Trazodone [Desyrel] 200 mg PO HS 04/02/17 04/07/17 History Vitamin E 1 tab PO DAILY 04/02/17 04/07/17 History Allergies Allergy/AdvReac Type Severity Reaction Status Date / Time codeine Allergy Unknown Verified 04/07/17 12:24 hydrocodone Allergy Unknown Nausea Verified 04/07/17 13:29 Potatoes Allergy Unknown Verified 04/07/17 13:29 tomato Allergy Unknown Verified 04/07/17 12:24 topiramate Allergy Unknown Verified 04/07/17 12:24 Orthopedic Exam Vital signs: Temperature 97.4 F 04/27/17 22:24 Pulse Rate 80 04/27/17 22:24 Respiratory Rate 18 04/27/17 22:24 Blood Pressure 131/59 04/27/17 22:24 Pulse Oximetry 96 04/27/17 22:24 - Constitutional General Appearance: Present: alert, orientated x3, no acute distress - Respiratory Exam Present: non-labored - Cardiovascular Exam Present: pedal pulses intact. Absent: peripheral edema Capillary Refill: < 2-3 Seconds - Abdominal Exam Absent: tenderness - Extremities Exam Present: pulses intact, normal capillary refill. Absent: cyanosis Comments: pain and edema lateral over the ATF. Intact ROM. skin without open wound or erythema. N/V intact. - Integumentary Exam Present: pink, warm, dry - Lymphatic Lymphatic: Absent: lymphedema - Neurological Exam Present: intact to light touch - Psychiatric Exam Present: alert - Labs Result Diagrams: 04/26/17 10:00 04/26/17 10:00 H & H 04/14/17 04/18/17 04/26/17 Range/Units 05:20 09:31 10:00 Hgb 11.3 L 12.0 12.2 (12-16) GM/DL Hct 35.9 L 38.0 37.9 (36-46) % - Diagnostic results Ankle/Foot x-ray: report reviewed, image reviewed Impression and Recommendation (1) Fibula fracture Current visit: No Qualifiers: Encounter type: initial encounter Fibula location: distal Fracture type: closed Fracture morphology: unspecified fracture morphology Laterality: right Qualified Code(s): S82.831A - Other fracture of upper and lower end of right fibula, initial encounter for closed fracture Status: Acute continue current care/immbilization outpatient follow up as already arranged. (2) Ankle pain, left Current visit: Yes Qualifiers: Chronicity: acute Qualified Code(s): M25.572 - Pain in left ankle and joints of left foot Status: Acute This appears to be a sprain. Brace for stability. outpatient follow up and PT as arranged. Hospital Course Summary Disclaimer: The visit summary below is not to be considered part of the above Progress Note. Hospital Course: 04/14/17 Assessment Status post ORIF right tib-fib fracture on 04/08/17 Normocytic anemia GERD Recovering alcoholic Migraine headaches - propranolol available but has not used Obesity, BMI 39.4 Plan We'll monitor continuous pulse oximetry with patient's concerns and recent brief periods of nocturnal hypoxia. She is at risk for sleep apnea given her central obesity. Discussed significant itching to Right lower extremity with Dr. Rey. He recommends to remove the splint and cover the incision with 4 x 4 and Kerlix and to hold PT until he can come in place a new splint. Labs reviewed: Mild normocytic anemia with hemoglobin of 11.3. Chemistries show a mildly elevated CO2 at 34, which has increased from her acute stay Pain control per attending. 04/18/17 Check CXR d/t cough. Add cough drops and acapella. Increase fluticasone nasal spray. Hx >20 pack year smoking hx; will DC PRN neb albuterol and try duoneb. Lightheaded/dizzy, subjective f/c - check CBC and BMP. Encourage fluids. Nausea, constipation - increase MiraLAX to BID; schedule SennaPlus (was PRN); add dulcolax supp. PRN. MOM PRN. PT/OT and pain control per attending. 04/24/17 Doing well. Icy Hot + heating pad helps keep right shoulder pain at bay. Change Senna Plus to PRN. Recent labs/UA - unremarkable. 04/26/17 New onset hypoxia and hypotension-rule out pulmonary embolus Stat CBC, BMP and CTA chest were ordered. Her white blood cell count remains normal at 7.4. Hemoglobin stable at 12.2. Her BMP is essentially negative other than a CO2 of 33. Her CTA chest was negative for pulmonary embolism, but did show a "very subtle hazy area of density in the right mid chest without significant acute findings." Right shoulder MRI has been performed. Results are pending. Patient was bolused a liter of normal saline. In discussion with nursing staff at 12:30, patient is on room air with normal saturations and blood pressure has improved. Case discussed with Dr. Prieto. She has also seen patient. Will continue to monitor patient closely. Plan-04/27/17.Mirakian. Patient complains of new left lateral ankle pain. X-rays were obtained this morning and revealed a tiny osseous structure at the tip of the medial malleolus which may represent an avulsion injury, age of which is indeterminate , but appears similar to the prior exam without callus formation identified as well as a plantar calcaneal spurring. Results of the x-ray were discussed with her. Will consult Dr. Rey for further evaluation and treatment recommendations. Patient continues to have borderline low blood pressure and remains asymptomatic. Hypoxia has resolved. Continue to monitor blood pressure closely , especially with narcotic treatment. Continue to measure I&O. Continue to encourage acapella. Labs on 04/26 were unremarkable. Anticipate discharge home on 04/28 with home health. Continue to encourage participation in therapies and provide safe and supportive environment.
[2017-04-28] MEDS: ASPIRIN *EC* 81 MG TABLET PO SCH (08:21)
[2017-04-28] MEDS: AMPHETAMINE/DEXTROAMPHETAMINE 10 MG TABLET PO SCH ×2 (08:21→13:15)
[2017-04-28] MEDS: FERROUS SULFATE 324 MG TABLET PO SCH (08:21)
[2017-04-28] MEDS: BuPROPion XL 150mg (24HR) TABLET PO SCH (08:21)
[2017-04-28] MEDS: CETIRIZINE 10 MG TABLET PO SCH (08:21)
[2017-04-28] MEDS: SERTRALINE 100 MG TABLET PO SCH (08:21)
[2017-04-28] MEDS: MULTI-VITAMIN + MINERAL TABLET PO SCH (08:21)
[2017-04-28] MEDS: ENOXAPARIN 40 MG/0.4 ML INJECTION SQ SCH (08:22)
[2017-04-28] MEDS: POLYETHYL GLYCOL 3350 17gm PACKET PO SCH ×2 (08:22→08:33)
[2017-04-28] MEDS: OXCARBAZEPINE 150 MG TABLET PO SCH ×2 (08:23→13:15)
[2017-04-28] MEDS: PROPRANOLOL 20 MG TABLET PO SCH ×3 (08:23→13:15)
[2017-04-28] MEDS: FLUTICASONE NASAL SPRAY 50mcg EA NOSTRIL SCH (08:23)
[2017-04-28 09:43] VITALS: BP 144/78; PULSE 82; RESP 16; TEMP 97.7; O2SAT 95
[2017-04-28] MEDS: RIZATRIPTAN 5 MG TABLET PO PRN (10:12)
--- NOTE | 2017-05-01 14:55 | Discharge Summary ---
Discharge Information Date of admission: 04/13/17 17:55 Anticipated date of discharge: 04/28/17 Attending Physician: Donato Fong MD Primary care physician: Radha Payne APRN Consults: 04/13/17 19:47 Case Management Consult [CONS] Routine Reason For Exam: discharge planning 04/13/17 21:17 Physician Consult [CONS] Routine Consulting Provider: Sharon Starkey Reason For Exam: Medical management Ordering Provider has Notified Rehabilitation Tech: Yes 04/27/17 12:21 Doctor [Physician Consult] [CONS] Routine Consulting Provider: Kehinde Rey Reason For Exam: left ankle pain Ordering Provider has Notified Rehabilitation Tech: Yes - Discharge Diagnosis (1) Ankle dislocation Status: Acute (2) Tibia/fibula fracture Status: Acute (3) Anemia Status: Resolved (4) Right shoulder pain Status: Acute (5) Hypoxemia Status: Resolved (6) Ankle pain, left Status: Acute 1. Right ankle dislocation 2. Fracture of distal right tibia and fibula 3. Acute blood loss anemia 4. Left ankle sprain 5. Hypoxemia likely related to hypoventilation - Laboratory Labs: 04/26/17 10:00 04/26/17 10:00 History of Present Illness HPI: 05/01/17 14:52 Ms. Lomeli is a 57-year-old female who was sitting on her toilet on April. She started to get up thinking that her right leg had gone to sleep. When she stood up she fell resulting in dislocation of the right ankle. She was taken to the emergency department at [facility]. The right ankle was reduced under conscious sedation. She was admitted to the hospital. She did have evidence of distal right tibia and fibula fracture as well as a left ankle sprain. The patient was taken to surgery by Dr. Rey on April 08, 2017 for open reduction internal fixation of the right ankle. She was nonweightbearing on the right side. She did have evidence of acute blood loss anemia and was at risk for surgical site infection and uncontrolled pain. She was admitted to the acute inpatient rehabilitation unit on April 13, 2017 for intensive and individualized care to include physical therapy, occupational therapy, 24-hour rehabilitation nursing and medical supervision. Hospital Course This is a general summary of the patient's hospital course. For more details refer to the complete medical record. After admission to the inpatient rehabilitation unit, an individualized program of physical therapy and occupational therapy was designed for the patient. She was monitored closely by the inpatient rehabilitation nursing staff to ensure no evidence of wound infection. Pain control was difficult. The patient removed her brace from the right lower extremity. Dr. Rey subsequently placed a cast on the right lower extremity. Her cooperation with therapy was variable during the initial portion of the stay. Ultimately she did participate with therapy and made significant improvements. Her anemia was monitored carefully. There was no evidence of further blood loss and her blood count at the time of dismissal had normalized. We did adjust her pain medications attempting to cut back on this. She did have a degree of constipation. Her appetite was borderline but did improve. The hospitalist service was consulted and assisted in the care of this patient during the entire stay on the inpatient rehabilitation unit. The patient also had an episode of hypoxemia and hypotension toward the end of the hospitalization. Extensive workup was undertaken in this regard and all was negative including CT angiogram of the chest. There was no evidence of underlying cardiac etiology either. Occupational therapy worked with the patient diligently. Eating improved from modified independent to independent functioning. Grooming improved from standby assistance to independent functioning. Bathing improved from moderate assistance to standby assistance. Upper body dressing improved from standby assistance to minimal assistance. Lower body dressing improved from moderate assistance to minimal assistance. Toilet assistance improved from maximum assistance to contact guard assistance. Tub transfer assistance initially was unsafe for the patient but ultimately she was able to shower with moderate assistance. Bed/chair/wheelchair transfers were in general contact guard assistance initially and moderate assistance subsequently. Physical therapy also worked with the patient. Bed/chair/wheelchair transfers were initially moderate assistance and ultimately standby assistance for PT. Car transfers were standby assistance of one improving to minimal assistance. Wheelchair propulsion was 65 feet with standby assistance of one initially. Ultimately she was able to propel herself in the wheelchair 256 feet with standby assistance. Stairs were unsafe and unable to be accomplished. Arrangements were made for home health. She remains nonweightbearing on the right lower extremity. She was dismissed in improved and stable condition on April 28, 2017. I did give her a prescription for oxycodone immediate release 15 mg to take 1 every 4 hours as needed for pain #40 prescribed. She will follow-up with Dr. Rey and her personal provider Radha Lucero APRN. Hospital course: 04/14/17 Assessment Status post ORIF right tib-fib fracture on 04/08/17 Normocytic anemia GERD Recovering alcoholic Migraine headaches - propranolol available but has not used Obesity, BMI 39.4 Plan We'll monitor continuous pulse oximetry with patient's concerns and recent brief periods of nocturnal hypoxia. She is at risk for sleep apnea given her central obesity. Discussed significant itching to Right lower extremity with Dr. Rey. He recommends to remove the splint and cover the incision with 4 x 4 and Kerlix and to hold PT until he can come in place a new splint. Labs reviewed: Mild normocytic anemia with hemoglobin of 11.3. Chemistries show a mildly elevated CO2 at 34, which has increased from her acute stay Pain control per attending. 04/18/17 Check CXR d/t cough. Add cough drops and acapella. Increase fluticasone nasal spray. Hx >20 pack year smoking hx; will DC PRN neb albuterol and try duoneb. Lightheaded/dizzy, subjective f/c - check CBC and BMP. Encourage fluids. Nausea, constipation - increase MiraLAX to BID; schedule SennaPlus (was PRN); add dulcolax supp. PRN. MOM PRN. PT/OT and pain control per attending. 04/24/17 Doing well. Icy Hot + heating pad helps keep right shoulder pain at bay. Change Senna Plus to PRN. Recent labs/UA - unremarkable. 04/26/17 New onset hypoxia and hypotension-rule out pulmonary embolus Stat CBC, BMP and CTA chest were ordered. Her white blood cell count remains normal at 7.4. Hemoglobin stable at 12.2. Her BMP is essentially negative other than a CO2 of 33. Her CTA chest was negative for pulmonary embolism, but did show a "very subtle hazy area of density in the right mid chest without significant acute findings." Right shoulder MRI has been performed. Results are pending. Patient was bolused a liter of normal saline. In discussion with nursing staff at 12:30, patient is on room air with normal saturations and blood pressure has improved. Case discussed with Dr. Prieto. She has also seen patient. Will continue to monitor patient closely. Plan-04/27/17.Mirakian. Patient complains of new left lateral ankle pain. X-rays were obtained this morning and revealed a tiny osseous structure at the tip of the medial malleolus which may represent an avulsion injury, age of which is indeterminate , but appears similar to the prior exam without callus formation identified as well as a plantar calcaneal spurring. Results of the x-ray were discussed with her. Will consult Dr. Rey for further evaluation and treatment recommendations. Patient continues to have borderline low blood pressure and remains asymptomatic. Hypoxia has resolved. Continue to monitor blood pressure closely , especially with narcotic treatment. Continue to measure I&O. Continue to encourage acapella. Labs on 04/26 were unremarkable. Anticipate discharge home on 04/28 with home health. Continue to encourage participation in therapies and provide safe and supportive environment. Time spent with patient: 25 - 35 minutes Discharge Plan - Med Rec/Dispo Referrals/Follow Up: Dilip Ko PA [Physician Director Of Learning] - ([facility] on 05/09/17 at 2:30 pm for Post-Op follow-up. . ( Check-in at 2:00 pm to allow for xrays to be taken). [facility] [address] [place] [address] [place] [address] ) Radha Payne APRN [Family Provider] - (Radha Payne APRN on 05/02/17 at 12:45 pm for Hosp. follow-up. [phone] [facility] [address] [place] [address]) Prescriptions: New Albuterol HFA Inhaler [Ventolin Hfa 90 mcg/actuation] 2 puff ORAL INH Q4HR PRN #1 inhaler PRN Reason: Shortness Of Air Nystatin Powder [Mycostatin] 1 applicatio TP QID #1 bottle Ondansetron Odt [Zofran Po] 4 mg PO Q6H PRN #10 tab PRN Reason: Nausea &/Or Vomiting PEG 3350 17gm PACKET [Miralax] 17 gm PO BID packet Acetaminophen [Tylenol] 650 mg PO Q5H PRN tablet PRN Reason: Discomfort Bisacodyl Supp [Dulcolax] 10 mg RECTALLY DAILY PRN supp PRN Reason: Constipation Nicotine Polacrilex [Nicorette] 2 mg BC Q1H PRN #30 gum PRN Reason: Cessation/Smoking/Tobacco Use Senna + Docusate [Senna Plus Tablet] 1 tab PO BID PRN tablet PRN Reason: Constipation Oxycodone *IR* [Roxicodone *Ir*] 15 mg PO Q4H PRN #40 tablet PRN Reason: Pain Continue Vitamin B Complex 1 tab PO DAILY #0 Cholecalciferol (Vitamin D3) [Vitamin D3] 10,000 unit PO DAILY #0 Multivitamin/Iron/Folic Acid [Centrum Women Tablet] 1 tab PO DAILY Fluticasone Nasal [place] [Flonase] 1 spray EA NOSTRIL DAILY PRN PRN Reason: Prn Orders BuPROPion XL [Wellbutrin Xl] 150 mg PO DAILY Cetirizine [Zyrtec] 10 mg PO DAILY Rizatriptan [Maxalt 5 mg] 5 mg PO DAILY PRN PRN Reason: Migraine Headache OXcarbazepine [Trileptal] 150 mg PO BIDBL Sertraline [Zoloft] 200 mg PO DAILY Aspirin *EC* [Ecotrin] 81 mg PO BID #84 tab Amphetamine/Dextroamphetamine [Adderall] 10 mg PO NOON #5 tab Dextroamphetamine/Amphetamine [Dextroamp-Amphet ER 30 mg Cap] 30 mg PO QAM # 5 cap.er.24h Propranolol HCl 40 mg PO BIDBL #0 Albuterol Sulfate [Proair Hfa] 1 puff INH Q4H PRN PRN Reason: Prn Orders Trazodone [Desyrel] 200 mg PO HS Discontinued Ferrous Sulfate [Iron] 325 mg PO DAILY Vitamin E 1 tab PO DAILY Oxycodone/Apap 7.5/325 [Percocet 7.5/325] 1 - 2 tab PO Q4H PRN #60 tab PRN Reason: Pain Ibuprofen [Advil] 200 mg PO Q4H PRN PRN Reason: Pain No Action PEG 3350 17gm PACKET [Miralax] 17 gm PO DAILY #30 packet PEG 3350 17gm PACKET [Miralax] 17 gm PO DAILY packet Discharge Instructions/Outpatient Orders: Consulting Provider Discharge Instructions Location: Determined By Patient Provider Discharge Instructions Location: Determined By Patient - Disposition [address] [place] [address] Service
== END 2017-04-28 13:30 | disposition home health service (06) | DRG 561 ==
PROVIDERS: ADMIT Internal Medicine; ATTEND Internal Medicine

== ENCOUNTER 2018-02-15 10:18 | Observation (INO) ==
--- NOTE | 2018-02-15 10:22 | Emergency Department Report ---
General Adult HPI - General Stated complaint: near syncope Time Seen by Provider: 02/15/18 10:21 Source: patient, EMS, old records reviewed Mode of arrival: EMS - History of Present Illness HPI narrative: Patient is a 57-year-old female persisted [facility] for syncopal episode. Patient was evaluated yesterday for similar syncopal episode, blood pressure 70/40 at that time patient was given 1 L of fluid with resolution of symptoms, laboratories were noncontributory. Patient was desirous of going home patient was discharged home, told follow-up with her primary medical physician. Patient presented via EMS from her primary medical physician's office. Patient went to the office for follow-up today at that time told him that she felt like she was passing out. Patient's blood pressure 80/40, EMS was called patient was brought to the ER for evaluation on arrival patient had been given 600 mL of fluid with improvement of symptoms, current blood pressure while sitting 117/ 56. Patient is asymptomatic at this time. - Related Data Home Medications Medication Instructions Recorded Confirmed Cetirizine [Zyrtec] 10 mg PO DAILY 04/02/17 02/15/18 Fluticasone Nasal [place] [Flonase] 1 spray EA NOSTRIL DAILY PRN 04/02/17 02/15/18 Trazodone [Desyrel] 200 mg PO HS PRN 04/02/17 02/15/18 Albuterol Sulfate [Proair Hfa] 1 puff INH Q4H PRN 06/21/17 02/15/18 Rizatriptan [Maxalt 5 mg] 5 mg PO DAILY PRN 11/02/17 02/15/18 Vortioxetine [Trintellix] 10 mg PO DAILY 11/02/17 02/15/18 Lisdexamfetamine Dimesylate 40 mg PO DAILY 02/11/18 02/15/18 [Vyvanse] Nicotine Polacrilex [Nicotine Gum] 4 mg BC PRN PRN 02/11/18 02/15/18 OXcarbazepine [Trileptal] 150 mg PO BID 02/11/18 02/15/18 Aspirin/Acetaminophen/Caffeine 2 tab PO PRN PRN 02/14/18 02/15/18 [Excedrin Migraine Caplet] Liraglutide [Saxenda] 1 dose IM DAILY 02/14/18 02/15/18 ALPRAZolam [Xanax 0.25 mg] 0.25 mg PO DAILY PRN 02/15/18 02/15/18 Albuterol Neb (0.083%) [Proventil 2.5 mg AEROSOL Q6H PRN 02/15/18 02/15/18 Neb (0.083%)] Cholecalciferol [Vit. D-3] 1 unit PO DAILY 02/15/18 02/15/18 Ibandronate Sodium [Boniva] 150 mg PO Q30D 02/15/18 02/15/18 guaiFENesin [Mucinex] 600 mg PO BID PRN 02/15/18 02/15/18 Allergies Allergy/AdvReac Type Severity Reaction Status Date / Time codeine Allergy Unknown Verified 02/15/18 10:32 hydrocodone Allergy Unknown Nausea Verified 02/15/18 10:32 Potatoes Allergy Unknown Verified 02/15/18 10:32 tomato Allergy Unknown Verified 02/15/18 10:32 topiramate Allergy Unknown Verified 02/15/18 10:32 Review of Systems Constitutional: Reports: weakness. Denies: fever, chills Eyes: Denies: eye pain, eye discharge, vision change ENT: Denies: ear pain, throat pain, dental pain, congestion, dysphagia Cardiovascular: Denies: chest pain, palpitations, dyspnea on exertion Respiratory: Denies: cough, dyspnea, wheezes Gastrointestinal: Denies: abdominal pain, nausea, vomiting Genitourinary: Denies: dysuria, frequency Neurological: Denies: headache Psychiatric: Denies: anxiety, depression Endocrine: Denies: fatigue Hematological/Lymphatic: Denies: easy bleeding Allergic/Immunologic: Denies: facial swelling PFSH Patient Stated Medical History Migraine Yes Other HEENT Yes: wears glasses Coronary Artery Disease No Hypertension No Asthma No Sleep Apnea No Diabetes Mellitus Type 2 No Gastroesophageal Reflux Yes Disease Hx Incontinence No Other Musculoskeletal Yes: anxiety Anesthesia Reactions Yes: does not want Ketamine due to previous bad experience Bipolar Disorder Yes Depression Yes Post Menopausal Yes Now No Clinic Medical History (Last Reviewed 07/13/17 @ 17:05 by RU Traore) Osteoarthritis (Chronic Medical) Depression (Chronic Medical) Anxiety (Chronic Medical) Migraine headache (Chronic Medical) Anemia (Chronic Medical) Medical History Updates: has a history of migraine headaches for which she has propranolol available but has not used. Apparently had an overnight oximetry demonstrating hypoxia. Has not had a formal sleep study. Surgical History: 1. Cholecystectomy. 2. Partial hysterectomy without BSO. 3. T&A. 4. Right ankle open reduction internal fixation 04/08/17 - Dr. Rey Family History: Family History (Last Reviewed 07/13/17 @ 17:05 by RU Traore) Mother Cancer of breast Father Throat cancer - Social History Smoking status: Former smoker Packs-years: 21 Substance use type: former substance user Alcohol intake: never Household members: none, children Current occupational status: employed Current occupation: [employer] Does patient use chewing tobacco?: No Current residence: Apartment/Private Home Physical Exam - General General appearance: alert, in no apparent distress - Head Head exam: normocephalic, normal inspection - ENT ENT exam: Present: normal oropharynx, mucous membranes moist, TM's normal bilaterally - Neck Neck exam: Present: full ROM, trachea midline. Absent: tenderness - Chest Chest inspection: Present: normal inspection, symmetric chest wall rise. Absent : tenderness - Respiratory Respiratory exam: Present: normal lung sounds bilaterally. Absent: respiratory distress, wheezes, stridor - Cardiovascular Cardiovascular exam: Present: regular rate, normal rhythm, normal heart sounds - Abdominal Exam Abdominal exam: Present: soft, normal bowel sounds. Absent: distention, tenderness - Extremities Exam Extremities exam: Present: full ROM - Back Exam Back exam: Present: full ROM. Absent: tenderness, CVA tenderness (R), CVA tenderness (L), muscle spasm - Skin Skin exam: Present: warm, dry - Neurological Exam Neurological exam: Present: alert, oriented X3 - Psychiatric Psychiatric exam: Present: normal affect, normal mood Course Vital Signs Temperature 97.9 F 02/15/18 10:18 Pulse Rate 62 02/15/18 10:18 Respiratory Rate 20 02/15/18 10:18 Blood Pressure 129/60 02/15/18 10:18 Pulse Oximetry 99 02/15/18 10:18 Temperature 96.2 F L 02/15/18 12:31 Pulse Rate 59 L 02/15/18 12:31 Respiratory Rate 16 02/15/18 12:31 Blood Pressure 127/67 02/15/18 12:31 Pulse Oximetry 97 02/15/18 12:31 Medical Decision Making - MDM Narrative Medical decision making narrative: Patient's laboratories are again noncontributory, symptoms have resolved patient no longer orthostatic. Discuss case with Dr. Starkey she will admit observation status review of medications. - Medical Records Medical records reviewed: Yes: I reviewed the patient's medical records. - Lab Data Lab results reviewed: Yes: I reviewed the patient's lab results. Result diagrams: 02/15/18 10:39 02/15/18 10:39 Lab Results 02/15/18 02/15/18 Range/Units 10:39 10:39 WBC 11.6 H (4.5-11.0) T/MM3 RBC 4.61 (4.00-5.20) M/MM3 Hgb 12.9 (12-16) GM/DL Hct 38.3 (36-46) % MCV 83.1 (80-100) UM3 MCH 28.0 (26-34) UUG MCHC 33.7 (31-37) GM/DL RDW Std Deviation 39.2 (36.9-50.2) FL Plt Count 277 (130-400) T/MM3 MPV 9.1 L (9.4-12.4) UM3 Immature Gran % (Auto) 0.3 (0.0-0.5) % Neut % (Auto) 73.2 H (33-66) % Lymph % (Auto) 19.0 L (23-45) % [place] % (Auto) 6.0 (0-9.0) % Eos % (Auto) 1.3 (0-4) % Baso % (Auto) 0.2 (0-2) % Neut # (Auto) 8.5 H (1.8-7.7) T/MM3 Lymph # (Auto) 2.2 (1-4.8) T/MM3 [place] # (Auto) 0.7 (0-0.8) T/MM3 Eos # (Auto) 0.2 (0-0.5) T/MM3 Baso # (Auto) 0.0 (0-0.2) T/MM3 Abs Immat Gran (auto) 0.03 (0.00-0.03) T/MM3 Turbidity < 20 (0-20) Sodium 145 (136-146) MEQ/L Potassium 4.5 (3.6-5) MEQ/L Chloride 109 H (98-107) MEQ/L Carbon Dioxide 26 (22-30) MEQ/L Anion Gap 10 (5-15) meq/L BUN 20.0 H (7-17) MG/DL Creatinine 0.9 D (0.7-1.2) mg/dL Estimated Creat Clear 83 (>50) mL/min GFR Calculation 65 (>60) mL/min BUN/Creatinine Ratio 22 (6-26) RATIO Glucose 86 (65-110) MG/DL Calculated Osmolality 281 H (261-280) MOSM/KG Calcium 8.3 L (8.4-10.2) MG/DL Total Bilirubin 0.30 (0.20-1.30) MG/DL Icterus Index < 2 (0-7) AST 21 (14-36) U/L ALT 36 H (1-35) U/L Alkaline Phosphatase 87 (38-126) U/L Troponin I < 0.012 (0-0.12) ng/ml Total Protein 6.5 (6.3-8.2) g/dL Albumin 3.9 (3.5-5.0) g/dL Globulin 2.6 (2.4-3.6) G/DL Albumin/Globulin Ratio 1.5 (1.1-2.2) RATIO Specimen Hemolysis < 15 (0-25) Disposition Clinical Impression: Orthostatic hypotension Syncopal episodes Qualifiers: Syncope type: unspecified Qualified Code(s): R55 - Syncope and collapse Disposition: [facility] [place] Condition: Stable - Seen By: physician
[2018-02-15] MEDS: SALINE FLUSH 10ml SYRINGE IVF PRN ×2 (12:19→14:32)
[2018-02-15 12:52] VITALS: BMI 40.1
--- NOTE | 2018-02-15 13:41 | History & Physical Report ---
History of Present Illness Date: 02/15/18 Chief complaint: low BP, near syncope HPI: Patient is a 57 year old female who was seen in the emergency room yesterday for complaint of dizziness. She was diagnosed with dehydration and given a liter of fluids. She was seen by Dr. Garcia this morning to follow up on her dizziness and had a near-syncopal episode at which time she had a systolic blood pressure of 60. EMS was called, fluids were started, and blood pressure came up to 86/59 after several 100 mL of IVF's were infused. By the time she arrived in the emergency room and had approximately 700 cc infused, her systolic pressure was in the 120s. Patient reports that for the last week she's had more episodes of feeling like she's going to pass out. She states that it' ll frequently happen upon standing, but it has happened when she is already been up and around for 5 minutes or more and she gets the symptoms. Symptoms will resolve when she sits or lies down. She reports she's had a cough for the past month. She states that approximately a week ago she was in her PCPs office and received a "steroid shot" and antibiotic shot and was sent home on Augmentin for possible sinus infection. She states she continues to have cough and feels somewhat short of breath. She did feel like her symptoms improved for a day or 2 after receiving a steroid shot. She reports the last 6 months she's been excessively fatigued and has noted low blood pressures. She states low blood pressure is not a normal thing for her and she has been told over the past 6 months that her fatigue is likely related to blood pressure, but complains that no one does anything about her low blood pressure. She has had some recent changes to her psychiatric medications as her regular psychiatric provider is no longer at [facility]. She states her Vyvanse was decreased from 70 mg to 40 mg and her Trileptal dose was cut in half. She does state she feels worse with these adjustments. Review of Systems All systems PM: 10-point ROS was reviewed, no additional remarkable complaints except (excessive fatigue, cough, SOA, nocturia 5-7 times per night) Past Medical History Medical History: Medical History (Last Updated 02/15/18 @ 20:31 by Sharon Starkey MD) Osteoarthritis (Chronic) Depression (Chronic) Anxiety (Chronic) Migraine headache (Chronic) Anemia (Chronic) ADD (attention deficit disorder) Bipolar affective disorder Osteopenia Medical History Updates: Had a sleep study revealing mild sleep apnea but not enough to qualify her for a CPAP. Osteopenia Surgical History: 1. Cholecystectomy. 2. Partial hysterectomy without BSO. 3. T&A. 4. Right ankle open reduction internal fixation 04/08/17 - Dr. Rey Family History: Family History Mother Cancer of breast, COPD, allergies Father Throat cancer Family History: As Above - Social History Smoking status: Former smoker (quit 10 years ago. Smoked for 15 yrs. States she has chewed nicotine gum ever since she quit smoking.) Substance use type: other (previous h/o drug abuse) Alcohol intake frequency: former alcohol drinker (quit 1996) Household members: children (grandson who she is the legal guardian of) Current occupational status: unemployed Does patient use chewing tobacco?: No Current residence: Apartment/Private Home Social history: PCP- Radha Hamilton APRN Care for her son who has behavioral issues. - living on social security Medications Home Medications Medication Instructions Recorded Confirmed Type Cetirizine [Zyrtec] 10 mg PO DAILY 04/02/17 02/15/18 History Fluticasone Nasal [place] [Flonase] 1 spray EA NOSTRIL DAILY PRN 04/02/17 History Trazodone [Desyrel] 200 mg PO HS PRN 04/02/17 02/15/18 History Albuterol Sulfate [Proair Hfa] 2 puff INH Q4H PRN 06/21/17 02/15/18 History Rizatriptan [Maxalt 5 mg] 5 mg PO DAILY PRN 11/02/17 02/15/18 History Vortioxetine [Trintellix] 10 mg PO DAILY 11/02/17 02/15/18 History Lisdexamfetamine Dimesylate 40 mg PO DAILY 02/11/18 02/15/18 History [Vyvanse] OXcarbazepine [Trileptal] 150 mg PO BID 02/11/18 02/15/18 History Aspirin/Acetaminophen/Caffeine 2 tab PO PRN PRN 02/14/18 02/15/18 History [Excedrin Migraine Caplet] Liraglutide [Saxenda] 1 dose SQ DAILY 02/14/18 02/15/18 History ALPRAZolam [Xanax 0.25 mg] 0.25 mg PO DAILY PRN 02/15/18 02/15/18 History ARIPiprazole [Abilify 10 mg] 10 mg PO DAILY 02/15/18 02/15/18 History Albuterol Neb (0.083%) [Proventil 2.5 mg AEROSOL Q6H PRN 02/15/18 02/15/18 History Neb (0.083%)] Calcium Carbonate [Calcium] 500 mg PO BID 02/15/18 02/15/18 History Cholecalciferol [Vit. D-3] 1 unit PO DAILY 02/15/18 02/15/18 History Ibandronate Sodium [Boniva] 150 mg PO Q30D 02/15/18 02/15/18 History Lisdexamfetamine Dimesylate 40 mg PO DAILY 02/15/18 02/15/18 History [Vyvanse] Nicotine Polacrilex [Nicorette] 1 piece of gum PO Q1H PRN 02/15/18 02/15/18 History Allergies Allergy/AdvReac Type Severity Reaction Status Date / Time codeine Allergy Unknown Verified 02/15/18 10:32 hydrocodone Allergy Unknown Nausea Verified 02/15/18 10:32 Potatoes Allergy Unknown Verified 02/15/18 10:32 tomato Allergy Unknown Verified 02/15/18 10:32 topiramate Allergy Unknown Verified 02/15/18 10:32 Exam Vital Signs: Temperature 96.2 F L 02/15/18 12:31 Pulse Rate 59 L 02/15/18 12:31 Respiratory Rate 16 02/15/18 12:31 Blood Pressure 127/67 02/15/18 12:31 Pulse Oximetry 97 02/15/18 12:31 Height/Weight/BMI: Height 1.63 m Weight 106.1 kg Body Mass Index 40.1 - Constitutional Present: no acute distress, well nourished, well developed - Routine HEENT Exam Head: Present: normocephalic, atraumatic Eye: Present: EOMI, PERRL ENT: Present: mucous membranes dry, oropharynx clear - Routine Neck Exam Present: supple. Absent: JVD, lymphadenopathy - Routine Respiratory Exam Present: CTA bilaterally. Absent: wheezes - Routine Cardiovascular Exam Present: RRR, no murmur - Routine Abdominal Exam Present: soft, normoactive bowel sounds. Absent: tenderness, distended - Routine Extremities Exam Present: no edema, normal capillary refill - Routine Skin Exam Present: dry, warm - Routine Neurological Exam Present: alert, oriented X3, CN II-XII intact - Routine Psychiatric Exam Present: normal affect, cooperative Results - Labs CBC & Chem 7: 02/15/18 10:39 02/15/18 10:39 Assessment and Plan (1) Near syncope Current visit: Yes Status: Acute (2) Orthostatic hypotension Current visit: Yes Status: Acute Assessment and Plan: Assessment Near syncope Hypotension with orthostatic hypotension Cough/SOA x 1 month Excessive fatigue Migraines Osteopenia ADD Depression/Anxiety Nicotine addiction (gum) Obesity BMI 40.2 - (on Saxenda for obesity, not DM) Plan Admit, OBS. Monitor BP's and orthostatics. Telemetry. Pharm consult to determine if meds/interactions could be causing near-syncope/ hypotension. Given 1L NS yesterday in ER and 700ml today by EMS/ED. Will bolus 1 more liter followed by maintenance rate. Check DDimer and respiratory panel re: her SOA. CXR yesterday in ER neg. TSH, Mg yesterday and basic labs today are unremarkable in re: to her ongoing fatigue. Iron studies nl 04/19. Check B12/folate. Recent sleep study (per pt) mild sleep apnea but not enough to qualify for insurance. Check overnight oximetry. SCD's for DVT ppx Full code PCP - Radha Hamilton APRN DVT Prophylaxis: SCD's Resuscitation Status: Full Code - Physician Narrative Physician: Sharon Starkey MD Narrative: Date: 02/15/18 Time: 2029 I have independently evaluated and examined this patient. I reviewed the chart, the patient's history, and the LOOPER OPERATOR/PA's documented findings as above. We discussed and formulated the assessment and plan as above with additions as below: Jaqueline was seen earlier today and described feeling progressively more lightheaded with sensation that she would black out over the past week. She reports that she's felt sluggish for 6 months and has been told frequently that her blood pressure is low. She's had near syncopal events as described above with documented hypotension yesterday and today. She feels better after IV fluids and when she is supine. Several medication changes have been made and notably she is on 200 mg of trazodone at bedtime. She clearly denies vertigo or any sense of motion with lightheadedness. Following above documentation she was found to be rhinovirus positive. She describes increased urinary frequency over the past week in conjunction with illness. NAD, alert, fluent speech Respirations nonlabored, good airflow, breath sounds clear although inspiration triggers a cough; no wheezing present Regular rhythm, S1-S2; no peripheral edema Abdomen soft, obese, nontender Chest x-ray obtained in the emergency room yesterday reviewed by myself-NAD EKG reviewed by myself demonstrating sinus rhythm with frequent APCs no acute ST /T-wave changes Laboratory data yesterday and today also reviewed-minor anemia with low normal MCV, undetectable d-dimer chemistries unremarkable with normal blood sugars on both days, troponins unremarkable, B12 686, TSH 1.46. Pharmacy to review medications regarding drug interactions and medications which may be impacting blood pressure and causing orthostatic hypotension. Clearly trazodone may be contributing to orthostasis and dose will be decreased with patient's permission to 150 mg at bedtime. Patient is unclear why she is taking it. May benefit from formal psychiatric evaluation for assistance with medication management. Continue hydration as presentation appears to be due to combination of chronic orthostasis acutely worsened with acute viral illness. Check echocardiogram. Discussed with Dr. Mills and recent records reviewed. Hospital Course Summary Disclaimer: The visit summary below is not to be considered part of the above Progress Note. Hospital Course: 02/15/18 Admit, OBS. Monitor BP's and orthostatics. Telemetry. Pharm consult to determine if meds/interactions could be causing near-syncope/ hypotension. Given 1L NS yesterday in ER and 700ml today by EMS/ED. Will bolus 1 more liter followed by maintenance rate. Check DDimer and respiratory panel re: her SOA. CXR yesterday in ER neg. TSH, Mg yesterday and basic labs today are unremarkable in re: to her ongoing fatigue. Iron studies nl 04/19. Check B12/folate. Recent sleep study (per pt) mild sleep apnea but not enough to qualify for insurance. Check overnight oximetry. SCD's for DVT ppx Full code PCP - Radha Hamilton, [facility]
[2018-02-15] MEDS: NS 1,000 ML IV SCH (14:32)
[2018-02-15] MEDS: APAP/ASA/Caffeine 1 TAB PO PRN (15:38)
[2018-02-15] MEDS ORDERED: GUAIFENESIN LA 600 MG TABLET PO PRN (17:14)
[2018-02-15] MEDS ORDERED: NICOTINE POLACRILEX 4 MG BC PRN (17:14)
[2018-02-15] MEDS ORDERED: ALPRAZolam 0.25 MG TABLET PO PRN (17:14)
[2018-02-15] MEDS ORDERED: RIZATRIPTAN 5 MG TABLET PO PRN (17:14)
[2018-02-15] MEDS ORDERED: TRAZODONE 100 MG TABLET PO PRN (17:14)
[2018-02-15] MEDS ORDERED: NS 1,000 ML IV ONE (18:53)
[2018-02-15] MEDS: ALBUTEROL 2.5mg/3ml (0.083%) NEB AEROSOL PRN (19:13)
[2018-02-15] MEDS: OXCARBAZEPINE 150 MG TABLET PO SCH (20:27)
[2018-02-15] MEDS ORDERED: TRAZODONE 100 MG TABLET PO SCH (21:00)
[2018-02-16] MEDS: ALBUTEROL 2.5mg/3ml (0.083%) NEB AEROSOL PRN (00:38)
[2018-02-16] MEDS: NS 1,000 ML IV SCH (01:48)
[2018-02-16 04:46] VITALS: O2SAT 96
[2018-02-16 07:55] VITALS: BP 136/67; TEMP 95.9
[2018-02-16] MEDS ORDERED: NICOTINE POLACRILEX PO PRN (08:26)
[2018-02-16] MEDS ORDERED: APAP/ASA/Caffeine 1 TAB PO PRN (08:26)
[2018-02-16] MEDS ORDERED: [UNRECOGNIZED DRUG - OTHER] PO PRN (08:26)
[2018-02-16] MEDS ORDERED: FLUTICASONE NASAL SPRAY 50mcg EA NOSTRIL PRN (08:26)
[2018-02-16] MEDS ORDERED: ALBUTEROL 2.5mg/3ml (0.083%) NEB AEROSOL PRN (08:26)
[2018-02-16] MEDS ORDERED: VYVANSE 40 MG PO SCH (09:00)
[2018-02-16] MEDS ORDERED: VORTIOXETINE 10 MG TABLET PO SCH (09:00)
[2018-02-16] MEDS ORDERED: CETIRIZINE 10 MG TABLET PO SCH (09:00)
[2018-02-16] MEDS ORDERED: CALCIUM CARBONATE 500 MG TABLET PO SCH (09:00)
[2018-02-16] MEDS ORDERED: LIRAGLUTIDE PO SCH (09:00)
[2018-02-16] MEDS ORDERED: NON-FORMULARY MEDICATION 1 EACH EACH (Calcium Carbonate [Calcium] 500 MG) PO SCH (09:00)
[2018-02-16] MEDS ORDERED: ARIPiprazole 10 MG TABLET PO SCH (09:00)
[2018-02-16] MEDS ORDERED: [UNRECOGNIZED DRUG - OTHER] PO SCH (09:00)
[2018-02-16] MEDS: OXCARBAZEPINE 150 MG TABLET PO SCH (09:41)
[2018-02-16] MEDS: APAP/ASA/Caffeine 1 TAB PO PRN (09:49)
[2018-02-16 10:41] VITALS: PULSE 75
--- NOTE | 2018-02-16 10:51 | Discharge Summary ---
Discharge Information Date of admission: 02/15/18 12:13 Anticipated date of discharge: 02/16/18 Attending Physician: Scott Reyna MD Primary care physician: Radha Payne APRN Consults: None - Discharge Diagnosis (1) Orthostatic hypotension Status: Acute (2) Near syncope Status: Acute Problems Reviewed?: Yes Discharge diagnosis Near syncope Associated conditions and complication Hypotension with orthostatic hypotension Cough/SOA x 1 month Rhinovirus infection Excessive fatigue Migraines Osteopenia ADD Depression/Anxiety Nicotine addiction (gum) Morbid Obesity BMI 40.2 - Procedures Procedures: Echo results are pending. - Laboratory Labs: Respiratory Panel 02/15/18 14:41 Entero/Rhino (PCR) Detected A* Dismissal labs 02/16/18 02/16/18 04:30 04:30 WBC 8.1 RBC 4.32 Hgb 11.9 L Hct 36.2 Plt Count 270 Sodium 146 Potassium 4.1 Chloride 114 H Carbon Dioxide 23 BUN 19.0 H Creatinine 0.7 D Admission Labs 02/15/18 02/15/18 02/15/18 10:39 10:39 10:39 WBC 11.6 H RBC 4.61 Hgb 12.9 Hct 38.3 Plt Count 277 D-Dimer < 150 Sodium 145 Potassium 4.5 Chloride 109 H Carbon Dioxide 26 BUN 20.0 H Creatinine 0.9 D Troponin I < 0.012 Vitamin B12 Folate 02/15/18 10:39 Vitamin B12 686 Folate 11.2 - Radiology Radiology: Date of Exam: 02/14/18 Indication: weakness shortness of air, cough PROCEDURE: XR chest 1V: Findings: The lungs are stable in appearance without new focal airspace consolidation. Calcified granuloma right upper lobe. There is no pleural effusion or pneumothorax. The heart size, pulmonary vascularity and mediastinal contours are unchanged. IMPRESSION: Stable appearance of the chest without acute cardiopulmonary disease. History of Present Illness HPI: Patient is a 57 year old female who was seen in the emergency room yesterday for complaint of dizziness. She was diagnosed with dehydration and given a liter of fluids. She was seen by Dr. Garcia this morning to follow up on her dizziness and had a near-syncopal episode at which time she had a systolic blood pressure of 60. EMS was called, fluids were started, and blood pressure came up to 86/59 after several 100 mL of IVF's were infused. By the time she arrived in the emergency room and had approximately 700 cc infused, her systolic pressure was in the 120s. Patient reports that for the last week she's had more episodes of feeling like she's going to pass out. She states that it' ll frequently happen upon standing, but it has happened when she is already been up and around for 5 minutes or more and she gets the symptoms. Symptoms will resolve when she sits or lies down. She reports she's had a cough for the past month. She states that approximately a week ago she was in her PCPs office and received a "steroid shot" and antibiotic shot and was sent home on Augmentin for possible sinus infection. She states she continues to have cough and feels somewhat short of breath. She did feel like her symptoms improved for a day or 2 after receiving a steroid shot. She reports the last 6 months she's been excessively fatigued and has noted low blood pressures. She states low blood pressure is not a normal thing for her and she has been told over the past 6 months that her fatigue is likely related to blood pressure, but complains that no one does anything about her low blood pressure. She has had some recent changes to her psychiatric medications as her regular psychiatric provider is no longer at [facility]. She states her Vyvanse was decreased from 70 mg to 40 mg and her Trileptal dose was cut in half. She does state she feels worse with these adjustments. For complete details of the H&P refer to that document. Objective Vital signs: Temperature 95.9 F L 02/16/18 07:52 Pulse Rate 75 02/16/18 08:00 Respiratory Rate 20 02/16/18 09:54 Blood Pressure 136/67 02/16/18 07:54 Pulse Oximetry 96 02/16/18 04:45 Height/Weight/BMI: Height 1.63 m Weight 106.1 kg Body Mass Index 40.1 - Constitutional Present: no acute distress, well nourished, well developed - Routine HEENT Exam Head: Present: normocephalic, atraumatic - Routine Respiratory Exam Present: CTA bilaterally. Absent: wheezes - Routine Cardiovascular Exam Present: RRR, no murmur - Routine Abdominal Exam Present: soft, non distended, non tender - Routine Extremities Exam Present: no edema, normal capillary refill - Routine Skin Exam Present: dry, warm - Routine Neurological Exam Present: alert, oriented X3 - Routine Lymphatic Exam Lymphatic: Absent: adenopathy - Routine Psychiatric Exam Present: normal affect, cooperative Hospital Course This is a general summary of the patient's hospital course. For more details refer to the complete medical record. Hospital course: 02/15/18 Admit, OBS for hypotension. Monitor BP's and orthostatics. Telemetry. Pharm consult to determine if meds/interactions could be causing near-syncope/ hypotension. Given 1L NS yesterday in ER and 700ml today by EMS/ED. Will bolus 1 more liter followed by maintenance rate. Check DDimer and respiratory panel re: her SOA. CXR yesterday in ER neg. TSH, Mg yesterday and basic labs today are unremarkable in re: to her ongoing fatigue. Iron studies nl 04/19. B12 folate nl. Recent sleep study (per pt) mild sleep apnea but not enough to qualify for insurance. Check overnight oximetry. 02/16/18 Suspect her near syncope sxs were multifactorial given her rhinovirus, increased stress, psych meds, not drinking enough fluids, recent steroid injection and addition of atbx. Her BP's were completely normal throughout her stay. Her telemetry revealed no arrhythmias. Her echo is pending . This will need to be followed up with her PCP at her f-u visit in 1 week. Discussed case with Dr Rogers. She states it is OK to DC trazodone (weaning not necessary) as this med is most likely to contribute to hypotension. Recommend DC of alprazolam as well but patient reports she can't function without that medication. Recommend f-u with her psych provider after DC. She no longer needs to continue the Augmentin she was on prior to hospitalization given she has rhinovirus and no evidence of pneumonia. Overnight oximetry was normal on room air. Encouraged her to push fluids, get plenty of rest and f-u with her PCP for new or worsening sxs. See orders for details. Time spent with patient: discharge greater than 30 minutes Resuscitation Status: Full Code Discharge Plan - Discharge Disposition Discharge Date: 02/16/18 Disposition: 01 Discharged Home, Self-Care *Condition: Stable Reason For Visit (Visit label in EMR): Orthostatic Hypotension - Discharge Medications *Discharge Medications: Continue Fluticasone Nasal [place] [Flonase] 1 spray EA NOSTRIL DAILY PRN PRN Reason: Prn Orders Cetirizine [Zyrtec] 10 mg PO DAILY Albuterol Sulfate [Proair Hfa] 2 puff INH Q4H PRN PRN Reason: Prn Orders Rizatriptan [Maxalt 5 mg] 5 mg PO DAILY PRN PRN Reason: Migraine Headache Vortioxetine [Trintellix] 10 mg PO DAILY OXcarbazepine [Trileptal] 150 mg PO BID Liraglutide [Saxenda] 1 dose SQ DAILY Aspirin/Acetaminophen/Caffeine [Excedrin Migraine Caplet] 2 tab PO PRN PRN PRN Reason: Migraine Headache ALPRAZolam [Xanax 0.25 mg] 0.25 mg PO DAILY PRN PRN Reason: Anxiety Cholecalciferol [Vit. D-3] 1 unit PO DAILY Ibandronate Sodium [Boniva] 150 mg PO Q30D ARIPiprazole [Abilify 10 mg] 10 mg PO DAILY Lisdexamfetamine Dimesylate [Vyvanse] 40 mg PO DAILY Nicotine Polacrilex [Nicorette] 1 piece of gum PO Q1H PRN PRN Reason: Anxiety Lisdexamfetamine Dimesylate [Vyvanse] 40 mg PO DAILY Albuterol Neb (0.083%) [Proventil Neb (0.083%)] 2.5 mg AEROSOL Q6H PRN PRN Reason: Shortness Of Air Calcium Carbonate [Calcium] 500 mg PO BID Discontinued Trazodone [Desyrel] 200 mg PO HS PRN PRN Reason: Prn Orders - Discharge Packet/Instructions *Diet: Regular *Activity: As tolerated. Try to take a walk on a daily basis. *Pain Management/Treatment: n/a *Wound Care: n/a Additional Instructions: Stop Trazodone. Drink plenty of fluids. Get plenty of rest. Follow a healthy diet. *Expected Signs/Symptoms: Gradual improvement in cough *Notify Physician if: you develop fever *During Business Hours Contact: [facility] *After Business Hours Contact: [facility] and have your provider paged *Pending Lab/Results: Follow up w/Provider (for results of echocardiogram) - Referrals/Follow Up *Referrals/Follow Up: Radha Payne APRN [Primary Care Provider] - (pt will schedule herself to see Radha in a week) - Patient Handouts Patient Handouts: Syncope (DC), Hypotension (DC) - Dismissal Complete Discharge Instructions are:: Complete Physician Narrative - Narrative Physician: Scott Reyna MD Attestation Narrative: Date: 02/16/18 Time: 1155 I have independently interviewed and examined patient prior to discharge. Chart reviewed. Case discussed with my PA. Care plan developed with my supervision; reviewed above not and concur. Doing much better this am. Not feeling as weak and washed out. Strength doing well-not unsteady with positional changes. Breathing well. No nausea or ab pain. Did well with decreased dose of Trazodone. Lungs: clear CV: regular AB: soft nt MSE: awake alert appropriate Plan: Medically stable for discharge to home. Can stop Trazodone-psych recommends okay to stop abruptly, but I recommended slow taper over 6 days. Will f/c with PCP in 1 week. See orders for details.
[2018-02-16 11:02] VITALS: RESP 18
--- NOTE | 2018-02-17 09:28 | Echocardiogram ---
DATE OF PROCEDURE February 16, 2018 REFERRING PHYSICIAN Sharon Starkey MD This is a two-dimensional echo with spectral Doppler, color-flow and M-mode. It was obtained in a patient with syncope. Left atrial dimension is normal. Left ventricle end-diastolic dimension is normal. Left ventricular wall thickness is normal. LV systolic function is normal with ejection fraction of about 65%. Right atrium is normal. Right ventricle is normal. Aortic root dimension is normal. Mitral valve is morphologically normal. Aortic valve appears to be normal. Tricuspid valve shows trace of tricuspid regurgitation with estimated pulmonary artery systolic pressure at the upper limits of normal at 31. Pulmonary valve shows no pulmonary insufficiency. There is no pericardial effusion. IMPRESSION 1. Normal LV systolic function with ejection fraction of 65%. 2. Trace of tricuspid regurgitation with estimated pulmonary artery systolic pressure of 31 at the upper limits of normal. MTDD
[2018-02-19] MEDS ORDERED: IBANDRONATE SODIUM 150 MG PO SCH (08:30)
== END 2018-02-16 12:05 | disposition home or self-care (01) ==
LOC: ED 10:18 → EDHOLD 10:18 → SUATTDRO 12:13 → MED 12:27
PROVIDERS: ADMIT Internal Medicine; ATTEND Hospitalist